=== PATIENT | female | born 1965 | race Caucasian/White ===

== ENCOUNTER 2017-03-02 18:12 | Emergency (ER) | payer OTHER ==
[2017-03-02] MEDS ORDERED: METOCLOPRAMIDE 5 MG/ML 2 ML VIAL IM ONE (18:58)
[2017-03-02] MEDS ORDERED: MORPHINE SULFATE 10 MG/ML SYRINGE IM STA (18:58)
--- NOTE | 2017-03-02 19:01 | ED ---
General Adult HPI - General Chief complaint: Headache Stated complaint: headache Time Seen by Provider: 03/02/17 18:54 Source: patient, family, RN notes reviewed Mode of arrival: ambulatory Limitations: no limitations - History of Present Illness Initial comments: Patient is a pleasant 51-year-old female presenting to the emergency department complaining of headache. Onset of symptoms was 2-3 days ago. Symptoms have gradually increased since onset. Discomfort is starting to become severe. Patient has tried sinus medicine, Tylenol, Motrin, and Mcleod without much improvement. Patient does not have a history of chronic headaches. Headache is mostly frontal bilaterally. No confusion. No street drugs. No weakness. Patient does have associated nausea and photophobia - Related Data Home Medications Medication Instructions Recorded Confirmed Insulin Aspart [NovoLOG Flexpen] 6 - 12 units SQ AC-TID 01/06/15 03/02/17 Levothyroxine Sodium [Synthroid] 150 mcg PO DAILY 01/06/15 03/02/17 Insulin Detemir [Levemir Flextouch] 38 unit SQ HS 03/02/17 03/02/17 Previous Rx's Medication Instructions Recorded Azithromycin [Zithromax Z-pack] 250 mg PO DIRECTED #6 tab 03/02/17 Hydrocodone/Acetaminophen [Mcleod 2 each PO Q6HR PRN #20 tab 03/02/17 5-325] Ondansetron Odt [Zofran Odt] 4 mg PO Q8HR PRN #10 tab 03/02/17 Allergies Allergy/AdvReac Type Severity Reaction Status Date / Time adhesive Allergy Rash/Hives Verified 03/02/17 18:17 Penicillins Allergy Rash/Hives Verified 03/02/17 18:17 SUN Allergy Rash/Hives Uncoded 03/02/17 18:17 Review of Systems ROS Statement: Those systems with pertinent positive or pertinent negative responses have been documented in the HPI. ROS Other: All systems not noted in ROS Statement are negative. Constitutional: Denies: fever Eyes: Denies: eye pain ENT: Denies: ear pain Respiratory: Denies: cough Cardiovascular: Denies: chest pain Endocrine: Denies: fatigue Gastrointestinal: Reports: nausea. Denies: abdominal pain Genitourinary: Denies: dysuria Musculoskeletal: Denies: back pain Skin: Denies: rash Neurological: Reports: headache. Denies: weakness, confusion Past Medical History Past Medical History: Diabetes Mellitus, Skin Disorder, Thyroid Disorder Additional Past Medical History / Comment(s): RT ARM RASH, R/T SUN SENSITIVITY, headaches History of Any Multi-Drug Resistant Organisms: None Reported Past Surgical History: Appendectomy, Bariatric Surgery, Section, Cholecystectomy, Hysterectomy Additional Past Surgical History / Comment(s): LAP BAND INSERTION, REMOVAL. 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 Past Psychological History: No Psychological Hx Reported Smoking Status: Former smoker Past Alcohol Use History: None Reported Past Drug Use History: None Reported - Past Family History Mother Family Medical History: No Reported History General Exam Limitations: no limitations General appearance: alert, in no apparent distress Head exam: Present: atraumatic, other (No tenderness to the temporal artery bilaterally) Eye exam: Present: normal appearance, PERRL, EOMI. Absent: nystagmus ENT exam: Present: normal oropharynx Neck exam: Present: normal inspection Respiratory exam: Present: normal lung sounds bilaterally Cardiovascular Exam: Present: regular rate, normal rhythm GI/Abdominal exam: Present: soft. Absent: tenderness Extremities exam: Present: normal inspection Neurological exam: Present: alert, oriented X3, CN II-XII intact. Absent: motor sensory deficit Expanded Speech: Present: fluid speech Cranial nerves: EOM's Intact: Normal, Facial Sensation: Normal Cerebellar function: Finger to Nose: Normal Sensory exam: Upper Extremity Light Touch: Normal, Lower Extremity Light Touch: Normal Motor strength exam: RUE: 5, LUE: 5, RLE: 5, LLE: 5 Eye Response: (4) open spontaneously Motor Response: (6) obeys commands Verbal Response: (5) oriented Psychiatric exam: Present: normal affect, normal mood Skin exam: Present: normal color Course Vital Signs 03/02/17 18:15 Temperature 97.4 F L Pulse Rate 80 Respiratory 20 Rate Blood Pressure 104/66 O2 Sat by Pulse 98 Oximetry Medical Decision Making - Medical Decision Making Patient reevaluated and resting comfortably in bed. Patient complains of continued nausea however states it may be because she has not been eating. Patient does not want further narcotics. Patient is receptive to Toradol and further nausea medicine and discharged. Patient will be started on antibiotics is advised to follow-up with ENT. - Radiology Data Radiology results: report reviewed (Computed tomography scan of brain shows severe left sphenoid sinus disease, otherwise no acute process) Disposition Clinical Impression: Headache, Sphenoid sinusitis Disposition: HOME SELF-CARE Condition: Stable Instructions: Acute Headache (ED) Additional Instructions: Please follow-up with your primary care physician as well as ENT in the beginning of the week. Return for increased pain, fevers, weakness, worsening symptoms or other concerns. Prescriptions: Azithromycin [Zithromax Z-pack] 250 mg PO DIRECTED #6 tab Hydrocodone/Acetaminophen [Mcleod 5-325] 2 each PO Q6HR PRN #20 tab PRN Reason: Pain Ondansetron Odt [Zofran Odt] 4 mg PO Q8HR PRN #10 tab PRN Reason: Nausea Referrals: Reji Parsons DO [Doctor of Osteopathic Medicine] - 1-2 days Ngoc Coreas MD [STAFF PHYSICIAN] - 1-2 days Time of Disposition: 20:30
--- NOTE | 2017-03-02 20:13 | CT ---
EXAMINATION TYPE: CT brain wo con DATE OF EXAM: 03/02/2017 COMPARISON: NONE HISTORY: 51-year-old female with headache TECHNIQUE: Examination was done in axial plane without intravenous contrast. Coronal and sagittal r econstructions performed. CT DLP: 1039.9 mGycm Automated exposure control for dose reduction was used. FINDINGS: There is no evidence of acute intracranial hemorrhage, acute ischemic changes, mass, mass-effect, or extra-axial fluid collection. There is no effacement of cerebral sulci or basal subarachnoid cister ns. There is no hydrocephalus. There is no midline shift. Nunez-white matter distinction is preserv ed. There is severe mucosal thickening and near complete opacification with some hyperdense material in t he left sphenoid sinus. Mastoid air cells well pneumatized. Orbits and globes are intact. IMPRESSION: 1. No acute intracranial abnormality seen. 2. Severe left sphenoid sinus disease. Internal hyperdensity is suspected to represent inspissated mu cus. Superimposed aspergillus infection considered less likely.
[2017-03-02] MEDS ORDERED: KETOROLAC 60 MG/2 ML VIAL IM STA (20:30)
[2017-03-02] MEDS ORDERED: ONDANSETRON 4 MG/2 ML VIAL IM STA (20:30)
[2017-03-02 20:59] VITALS: BP 128/78; PULSE 70; RESP 18; TEMP 97.8
== END 2017-03-02 20:59 | disposition home or self-care (01) ==
LOC: EC 18:12
DX: J32.3 Chronic sphenoidal sinusitis (principal); E11.9 Type 2 diabetes mellitus without complications; E07.9 Disorder of thyroid, unspecified; Z87.891 Personal history of nicotine dependence; Z88.0 Allergy status to penicillin; Z91.048 Other nonmedicinal substance allergy status; Z91.09 Other allergy status, other than to drugs and biological substances; Z53.20 Procedure and treatment not carried out because of patient's decision for unspecified reasons; Z79.4 Long term (current) use of insulin; Z79.899 Other long term (current) drug therapy
CPT/HCPCS: 70450; 99283; 96372 ×3; J2765; J2270; J1885

== ENCOUNTER 2017-06-29 07:16 | Emergency (ER) | payer OTHER ==
[2017-06-29] MEDS ORDERED: diphenhydrAMINE 50 MG/ML 1 ML VIAL IVP STA (07:49)
[2017-06-29] MEDS ORDERED: SODIUM CHLORIDE 0.9% 500 ML IV STA (07:49)
[2017-06-29] MEDS ORDERED: PANTOPRAZOLE 40 MG/10 ML VIAL IVP STA (07:49)
[2017-06-29] MEDS ORDERED: SODIUM CHLORIDE 0.9% 1,000 ML IV STA ×2 (07:49)
[2017-06-29] MEDS ORDERED: ONDANSETRON 4 MG/2 ML VIAL IVP STA (07:49)
--- NOTE | 2017-06-29 08:19 | ED ---
General Adult HPI - General Chief complaint: Nausea/Vomiting/Diarrhea Stated complaint: Vomiting Time Seen by Provider: 06/29/17 07:19 Source: patient, family, RN notes reviewed, old records reviewed Mode of arrival: wheelchair Limitations: no limitations - History of Present Illness Initial comments: This is a 52-year-old female to the ER for evaluation today. Patient complains of severe nausea and vomiting. Symptoms are left-sided into today. Patient has history of diabetes history of hypothyroidism. Patient states her blood sugars greater on 100. She felt fine yesterday during some family activities and events, didn't eat dinner without difficulty last night. Patient has 2 abdominal surgeries both appendix has been removed and gallbladder removed. Patient denies any recent fevers. She did have one episode of diarrhea, loose stool today. Patient is actively currently vomiting. She states she's had a couple episodes like this in the past when she gets the flu and usually this time a year. - Related Data Home Medications Medication Instructions Recorded Confirmed Insulin Aspart [NovoLOG Flexpen] 6 - 12 units SQ AC-TID 01/06/15 06/29/17 Levothyroxine Sodium [Synthroid] 150 mcg PO DAILY 01/06/15 06/29/17 Gabapentin [Neurontin] 300 mg PO HS 06/29/17 06/29/17 Insulin Glargine,Hum.rec.anlog 38 unit SQ HS 06/29/17 06/29/17 [Lantus Solostar] Allergies Allergy/AdvReac Type Severity Reaction Status Date / Time adhesive Allergy Rash/Hives Verified 06/29/17 08:12 influenza virus vaccine, Allergy Rash/Hives Verified 06/29/17 08:12 specific Penicillins Allergy Rash/Hives Verified 06/29/17 08:12 tetanus and diphtheria Allergy Rash/Hives Verified 06/29/17 08:12 toxoids SUN Allergy Rash/Hives Uncoded 03/02/17 18:17 Review of Systems ROS Statement: Those systems with pertinent positive or pertinent negative responses have been documented in the HPI. ROS Other: All systems not noted in ROS Statement are negative. Past Medical History Past Medical History: Diabetes Mellitus, Skin Disorder, Thyroid Disorder Additional Past Medical History / Comment(s): RT ARM RASH, R/T SUN SENSITIVITY, headaches History of Any Multi-Drug Resistant Organisms: None Reported Past Surgical History: Appendectomy, Bariatric Surgery, Section, Cholecystectomy, Hysterectomy Additional Past Surgical History / Comment(s): LAP BAND INSERTION, REMOVAL. 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 Past Psychological History: No Psychological Hx Reported Smoking Status: Former smoker Past Alcohol Use History: None Reported Past Drug Use History: None Reported - Past Family History Mother Family Medical History: No Reported History General Exam Limitations: no limitations General appearance: alert, in no apparent distress Head exam: Present: atraumatic, normocephalic, normal inspection Eye exam: Present: normal appearance, PERRL, EOMI. Absent: scleral icterus, conjunctival injection, periorbital swelling ENT exam: Present: normal exam, mucous membranes moist Neck exam: Present: normal inspection. Absent: tenderness, meningismus, lymphadenopathy Respiratory exam: Present: normal lung sounds bilaterally. Absent: respiratory distress, wheezes, rales, rhonchi, stridor Cardiovascular Exam: Present: regular rate, normal rhythm, normal heart sounds. Absent: systolic murmur, diastolic murmur, rubs, gallop, clicks GI/Abdominal exam: Present: soft, normal bowel sounds. Absent: distended, tenderness, guarding, rebound, rigid Extremities exam: Present: normal inspection, full ROM, normal capillary refill. Absent: tenderness, pedal edema, joint swelling, calf tenderness Back exam: Present: normal inspection Neurological exam: Present: alert, oriented X3, CN II-XII intact Psychiatric exam: Present: normal affect, normal mood Skin exam: Present: warm, dry, intact, normal color. Absent: rash Course Vital Signs 06/29/17 06/29/17 07:25 09:21 Temperature 99.4 F 98.6 F Pulse Rate 98 94 Respiratory 26 H 16 Rate Blood Pressure 123/53 120/59 O2 Sat by Pulse 98 98 Oximetry - Reevaluation(s) Reevaluation #1: 06/29/17 09:54 Patient feeling much better, symptoms resolved Medical Decision Making - Medical Decision Making 52 female to ER for evaluation. Patient is today for evaluation regarding nausea vomiting. Severe nausea vomiting and occasional abdominal pain. Patient 's symptoms are resolved, x-rays negative labwork is normal patient can be discharged home - Lab Data Result diagrams: 06/29/17 08:15 06/29/17 08:15 Lab Results 06/29/17 06/29/17 06/29/17 Range/Units 08:15 08:15 08:15 WBC 10.4 (3.8-10.6) k/uL RBC 5.00 (3.80-5.40) m/uL Hgb 14.6 (11.4-16.0) gm/dL Hct 44.8 (34.0-46.0) % MCV 89.7 (80.0-100.0) fL MCH 29.3 (25.0-35.0) pg MCHC 32.7 (31.0-37.0) g/dL RDW 13.8 (11.5-15.5) % Plt Count 309 (150-450) k/uL Neutrophils % 80 % Lymphocytes % 11 % Monocytes % 3 % Eosinophils % 4 % Basophils % 1 % Neutrophils # 8.3 H (1.3-7.7) k/uL Lymphocytes # 1.2 (1.0-4.8) k/uL Monocytes # 0.3 (0-1.0) k/uL Eosinophils # 0.4 (0-0.7) k/uL Basophils # 0.1 (0-0.2) k/uL Sodium 139 (137-145) mmol/L Potassium 4.0 (3.5-5.1) mmol/L Chloride 106 (98-107) mmol/L Carbon Dioxide 25 (22-30) mmol/L Anion Gap 8 mmol/L BUN 14 (7-17) mg/dL Creatinine 0.73 (0.52-1.04) mg/dL Est GFR (MDRD) Af Amer >60 (>60 ml/min/1.73 sqM) Est GFR (MDRD) Non-Af >60 (>60 ml/min/1.73 sqM) Glucose 84 (74-99) mg/dL Plasma Lactic Acid Sandeep (0.7-2.0) mmol/L Calcium 9.6 (8.4-10.2) mg/dL Total Bilirubin 0.4 (0.2-1.3) mg/dL AST 32 (14-36) U/L ALT 40 (9-52) U/L Alkaline Phosphatase 178 H (38-126) U/L Total Creatine Kinase 48 (30-135) U/L CK-MB (CK-2) 0.5 (0.0-2.4) ng/mL CK-MB (CK-2) Rel Index 1.0 Troponin I <0.012 (0.000-0.034) ng/mL Total Protein 7.6 (6.3-8.2) g/dL Albumin 4.0 (3.5-5.0) g/dL Amylase <30 L (30-110) U/L Lipase 40 (23-300) U/L Acetone, Qual Negative (Negative) Influenza Type A RNA (Not Detectd) Influenza Type B (PCR) (Not Detectd) 06/29/17 06/29/17 Range/Units 08:15 08:25 WBC (3.8-10.6) k/uL RBC (3.80-5.40) m/uL Hgb (11.4-16.0) gm/dL Hct (34.0-46.0) % MCV (80.0-100.0) fL MCH (25.0-35.0) pg MCHC (31.0-37.0) g/dL RDW (11.5-15.5) % Plt Count (150-450) k/uL Neutrophils % % Lymphocytes % % Monocytes % % Eosinophils % % Basophils % % Neutrophils # (1.3-7.7) k/uL Lymphocytes # (1.0-4.8) k/uL Monocytes # (0-1.0) k/uL Eosinophils # (0-0.7) k/uL Basophils # (0-0.2) k/uL Sodium (137-145) mmol/L Potassium (3.5-5.1) mmol/L Chloride (98-107) mmol/L Carbon Dioxide (22-30) mmol/L Anion Gap mmol/L BUN (7-17) mg/dL Creatinine (0.52-1.04) mg/dL Est GFR (MDRD) Af Amer (>60 ml/min/1.73 sqM) Est GFR (MDRD) Non-Af (>60 ml/min/1.73 sqM) Glucose (74-99) mg/dL Plasma Lactic Acid Sandeep 0.9 (0.7-2.0) mmol/L Calcium (8.4-10.2) mg/dL Total Bilirubin (0.2-1.3) mg/dL AST (14-36) U/L ALT (9-52) U/L Alkaline Phosphatase (38-126) U/L Total Creatine Kinase (30-135) U/L CK-MB (CK-2) (0.0-2.4) ng/mL CK-MB (CK-2) Rel Index Troponin I (0.000-0.034) ng/mL Total Protein (6.3-8.2) g/dL Albumin (3.5-5.0) g/dL Amylase (30-110) U/L Lipase (23-300) U/L Acetone, Qual (Negative) Influenza Type A RNA Not Detected (Not Detectd) Influenza Type B (PCR) Not Detected (Not Detectd) Disposition Clinical Impression: Dehydration, Food poisoning, Gastroenteritis Disposition: HOME SELF-CARE Condition: Good Instructions: Acute Nausea and Vomiting (ED) Referrals: Nonstaff,Physician [REFERRING] - 1-2 days
[2017-06-29 08:33] LABS: Basophils # (A) 0.1 k/uL (0-0.2); Basophils % (A) 1 %; CH 29.8; CHCM 33.3; Eosinophils # (A) 0.4 k/uL (0-0.7); Eosinophils % (A) 4 %; HCT 44.8 % (34.0-46.0); HDW 2.22; HGB 14.6 gm/dL (11.4-16.0); Luc # (Auto) 0.12; Luc % (Auto) 1; Lymphocytes # (A) 1.2 k/uL (1.0-4.8); Lymphocytes % (A) 11 %; MCH 29.3 pg (25.0-35.0); MCHC 32.7 g/dL (31.0-37.0); MCV 89.7 fL (80.0-100.0); Mean Platelet Volume 7.8; Monocytes # (A) 0.3 k/uL (0-1.0); Monocytes % (A) 3 %; Neutrophils # (A) 8.3 k/uL (1.3-7.7); Neutrophils % (A) 80 %; RDW 13.8 % (11.5-15.5); WBC 10.4 k/uL (3.8-10.6); WBC (Perox) 10.51
[2017-06-29 08:44] LABS: ALT 40 U/L (9-52); AST 32 U/L (14-36); Alkaline Phosphatase 178 U/L (38-126); Amylase <30 U/L (30-110); Anion Gap 8 mmol/L; Blood Urea Nitrogen 14 mg/dL (7-17); Calcium 9.6 mg/dL (8.4-10.2); Carbon Dioxide 25 mmol/L (22-30); Chloride 106 mmol/L (98-107); Glucose 84 mg/dL (74-99); Non-African American GFR(MDRD) >60 (>60 ml/min/1.73 sqM); Sodium 139 mmol/L (137-145); Total Bilirubin 0.4 mg/dL (0.2-1.3); Total Protein 7.6 g/dL (6.3-8.2)
[2017-06-29 09:20] LABS: Creatine Kinase 48 U/L (30-135)
[2017-06-29 09:22] VITALS: BP 120/59; PULSE 94; RESP 16; TEMP 98.6
[2017-06-29 09:31] LABS: Creatine Kinase MB 0.5 ng/mL (0.0-2.4); Troponin I <0.012 ng/mL (0.000-0.034)
--- NOTE | 2017-06-29 09:50 | XR ---
EXAMINATION TYPE: XR abdomen acute w AP chest DATE OF EXAM: 06/29/2017 COMPARISON: NONE HISTORY: 52-year-old female syncopal episode last night, pain TECHNIQUE: 4 views FINDINGS: Frontal view of the chest shows normal heart size, aorta, and pulmonary vasculature. No consolidation or pleural effusion. ACDF hardware. No evidence for free air. No dilated small bowel or differential air-fluid levels. No significant stool burden. Scattered colon ic gas is present. No suspicious calcification seen. IMPRESSION: 1. No acute cardiopulmonary process. 2. No evidence for free air or bowel obstruction.
== END 2017-06-29 10:05 | disposition home or self-care (01) ==
LOC: EC 07:16
DX: K52.9 Noninfective gastroenteritis and colitis, unspecified (principal); T62.91XA Toxic effect of unspecified noxious substance eaten as food, accidental (unintentional), initial encounter; E11.9 Type 2 diabetes mellitus without complications; E03.9 Hypothyroidism, unspecified; Z87.891 Personal history of nicotine dependence; Z90.49 Acquired absence of other specified parts of digestive tract; Z98.84 Bariatric surgery status; Z90.710 Acquired absence of both cervix and uterus; Z79.4 Long term (current) use of insulin; Z79.899 Other long term (current) drug therapy; Z91.048 Other nonmedicinal substance allergy status; Z88.7 Allergy status to serum and vaccine; Z88.0 Allergy status to penicillin
CPT/HCPCS: 36415; 80053; 82150; 82550; 82553; 82009; 83605; 83690; 84484; 85025; 87502; 74022; 99284; 96374; 96375 ×2; 96361 ×2; J1200; J2405; C9113

== ENCOUNTER 2018-04-27 19:11 | Emergency (ER) | payer OTHER ==
[2018-04-27] MEDS ORDERED: HYDROcodone/APAP 7.5-325MG 1 EACH TAB PO ONE ×2 (20:25→20:36)
--- NOTE | 2018-04-27 20:35 | ED ---
Fall HPI - General Source: patient Mode of arrival: ambulatory <Negin Pringle - Last Filed: 04/28/18 04:34> <Debbie Martin - Last Filed: 04/28/18 04:42> - General Chief Complaint: Fall Stated Complaint: Fall-Tailbone Pain Time Seen by Provider: 04/27/18 20:03 - History of Present Illness Initial Comments: 60-year-old female patient presents to the emergency department today for complaints of low back pain after experiencing a fall today. Patient states on 4 PM she was pulling or 2-year-old grandchild when she fell backwards landing on her buttocks. Patient states that she is having severe pain in her "tailbone ". Patient states he has a significant increase in pain whenever she changes positions or sits on the area. Patient states that initially the pain was so bad she vomited 2-3 times. Patient states that she has been very shaky since the incident. She denies any hematuria. Denies any rectal bleeding. She denies any radiation of the pain down her legs. Denies any numbness or tingling to her lower extremities. States she is able to ambulate without difficulty. She denies any loss of bowel or bladder control, or saddle anesthesia. She denies hitting her head or losing consciousness. She denies any other injuries. Patient denies any headache, neck pain, chest pain, shortness of breath, dizziness, weakness, abdominal pain, nausea, vomiting, or difficulties with bowel movements or urination. (Negin Pringle) - Related Data Home Medications Medication Instructions Recorded Confirmed Insulin Aspart [NovoLOG Flexpen] 6 - 12 units SQ AC-TID 01/06/15 04/27/18 Levothyroxine Sodium [Synthroid] 150 mcg PO DAILY 01/06/15 04/27/18 Gabapentin [Neurontin] 300 mg PO HS 06/29/17 04/27/18 Insulin Glargine,Hum.rec.anlog 38 unit SQ HS 06/29/17 04/27/18 [Lantus Solostar] Previous Rx's Medication Instructions Recorded Ibuprofen [Motrin] 600 mg PO Q8HR PRN #30 tab 04/27/18 Allergies Allergy/AdvReac Type Severity Reaction Status Date / Time adhesive Allergy Rash/Hives Verified 09/24/18 20:41 influenza virus vaccine, Allergy Rash/Hives Verified 04/27/18 20:41 specific Penicillins Allergy Rash/Hives Verified 04/27/18 20:41 tetanus and diphtheria Allergy Rash/Hives Verified 04/27/18 20:41 toxoids SUN Allergy Rash/Hives Uncoded 04/27/18 19:56 Review of Systems ROS Other: All systems not noted in ROS Statement are negative. <Negin Pringle M - Last Filed: 04/28/18 04:34> ROS Other: All systems not noted in ROS Statement are negative. <Debbie Martin - Last Filed: 04/28/18 04:42> ROS Statement: Those systems with pertinent positive or pertinent negative responses have been documented in the HPI. Past Medical History Past Medical History: Diabetes Mellitus, Skin Disorder, Thyroid Disorder Additional Past Medical History / Comment(s): RT ARM RASH, R/T SUN SENSITIVITY, headaches History of Any Multi-Drug Resistant Organisms: None Reported Past Surgical History: Appendectomy, Bariatric Surgery, Section, Cholecystectomy, Hysterectomy Additional Past Surgical History / Comment(s): LAP BAND INSERTION, REMOVAL. 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 Past Psychological History: No Psychological Hx Reported Smoking Status: Former smoker Past Alcohol Use History: None Reported Past Drug Use History: None Reported - Past Family History Mother Family Medical History: No Reported History <Negin Pringle M - Last Filed: 04/28/18 04:34> General Exam Limitations: no limitations General appearance: alert, in no apparent distress, other (This is a well- developed, well-nourished adult female patient in no acute distress. Vital signs upon presentation are temperature 98.4F, pulse 94, respirations 20, blood pressure 123/78, pulse ox 98% on room air.) Eye exam: Present: normal appearance, PERRL, EOMI. Absent: scleral icterus, conjunctival injection, periorbital swelling ENT exam: Present: normal exam, normal oropharynx, mucous membranes moist Neck exam: Present: normal inspection, full ROM. Absent: tenderness, meningismus, lymphadenopathy Respiratory exam: Present: normal lung sounds bilaterally. Absent: respiratory distress, wheezes, rales, rhonchi, stridor Cardiovascular Exam: Present: regular rate, normal rhythm, normal heart sounds. Absent: systolic murmur, diastolic murmur, rubs, gallop, clicks GI/Abdominal exam: Present: soft, normal bowel sounds. Absent: distended, tenderness, guarding, rebound, rigid Back exam: Present: normal inspection, vertebral tenderness (Midline sacral tenderness) Neurological exam: Present: alert, oriented X3, CN II-XII intact, other (Lower extremity strength is 5/5.) Psychiatric exam: Present: normal affect, normal mood Skin exam: Present: warm, dry, intact, normal color. Absent: rash <Negin Pringle - Last Filed: 04/28/18 04:34> Vital Signs 04/27/18 04/27/18 19:54 21:35 Temperature 98.4 F 98.3 F Pulse Rate 94 81 Respiratory 20 18 Rate Blood Pressure 123/78 140/60 O2 Sat by Pulse 98 98 Oximetry Medical Decision Making - Radiology Data Radiology results: report reviewed, image reviewed <Negin Pringle - Last Filed: 04/28/18 04:34> <Debbie Martin - Last Filed: 04/28/18 04:42> - Medical Decision Making 52-year-old female patient presents to the emergency department today for evaluation of pain to her "tailbone" after expressing a fall today. Physical examination did reveal sacral tenderness. Patient had no radicular pain to the lower extremities. Had no numbness or tingling. She is neurologically intact. CT of the pelvis and sacrum were obtained and showed no acute osseous abnormalities. Did discuss her symptoms are consistent with contusion. She is instructed to apply ice to the area at least 4 times daily for 20 minutes. She is instructed to take Tylenol Motrin for pain control. She is instructed to follow-up with her primary care physician for recheck in 1-2 days. Return parameters discussed in detail. She verbalizes understanding and agrees with this plan. (Negin Pringle) I was available for consultation in the emergency department. The history and physical exam were done by the midlevel provider. I was consulted for this patient's care. I reviewed the case with the midlevel provider and based on their presentation of the patient, I agree with the assessment, medical decision making and plan of care as documented. (Debbie Martin) - Radiology Data CT of the sacrum without contrast was performed. Report was reviewed in its entirety. Impression by Dr. Ruiz shows negative computed tomography scan of the sacrum and coccyx. No fracture seen. CT of the pelvis without contrast was performed. Report was reviewed in its entirety. Impression by Dr. Ruzi shows negative computed tomography scan of the pelvis. No fracture seen. There are a few inguinal lymph nodes of uncertain significance. (Negin Pringle) Disposition Is patient prescribed a controlled substance at d/c from ED?: No Time of Disposition: 21:30 <Negin Pringle - Last Filed: 04/28/18 04:34> <Debbie Martin - Last Filed: 04/28/18 04:42> Clinical Impression: Sacral contusion Disposition: HOME SELF-CARE Condition: Good Instructions: Acute Low Back Pain (ED), Contusion in Adults (ED) Additional Instructions: Continue to apply ice to the sacral area 20 minutes at a time at least 4 times per day. Take medications as directed. Follow-up with your primary care physician for recheck in 1-2 days. Return here immediately for any new, worsening, or concerning symptoms. Prescriptions: Ibuprofen [Motrin] 600 mg PO Q8HR PRN #30 tab PRN Reason: Pain Referrals: None,Stated [Primary Care Provider] - 1-2 days
[2018-04-27] MEDS ORDERED: MORPHINE SULFATE 4 MG/ML SYRINGE IM STA (20:36)
[2018-04-27] MEDS ORDERED: ONDANSETRON ODT 4 MG TAB PO STA (21:09)
--- NOTE | 2018-04-27 21:24 | CT ---
EXAMINATION TYPE: CT pelvis wo con DATE OF EXAM: 04/27/2018 COMPARISON: None HISTORY: PAIN TO TAILBONE AFTER FALL INJURY CT DLP: 920.3 mGycm Automated exposure control for dose reduction was used. FINDINGS: The pelvic ring is intact. Sacrum and coccyx have normal alignment of the segments. There is no evide nce of a pelvic mass. Bladder distends smoothly. There is no free fluid in the pelvis. There is no ev idence of pelvic lymphadenopathy. There is apparent surgical clip in the pelvis on the left side. Hip joint spaces are fairly normal. The proximal femurs are intact. Soft tissues around the pelvis are u nremarkable. There are a few inguinal lymph nodes that measure up to 2 cm. IMPRESSION: NEGATIVE CT SCAN OF THE PELVIS. NO FRACTURE SEEN. There are a few inguinal lymph nodes of uncertain s ignificance.
--- NOTE | 2018-04-27 21:26 | CT ---
EXAMINATION TYPE: CT sacrum wo con DATE OF EXAM: 04/27/2018 COMPARISON: None HISTORY: PAIN TO TAILBONE AFTER FALL INJURY CT DLP: 920.3 mGycm Automated exposure control for dose reduction was used. FINDINGS: The segments have normal alignment. Prevertebral soft tissues appear normal. There is no evidence of a sacral or coccygeal fracture. Sacroiliac joints appear normal. There is no evidence of sacral bone destruction. IMPRESSION: NEGATIVE CT SCAN OF THE SACRUM AND COCCYX. NO FRACTURE SEEN.
[2018-04-27] MEDS ORDERED: ACET/COD 300 MG/30 MG STARTER PACK 6 TAB BTL PO STA (21:30)
[2018-04-27 21:43] VITALS: BP 140/60; PULSE 81; RESP 18; TEMP 98.3
== END 2018-04-27 21:39 | disposition home or self-care (01) ==
LOC: EC 19:11
DX: S30.0XXA Contusion of lower back and pelvis, initial encounter (principal); E11.9 Type 2 diabetes mellitus without complications; E07.9 Disorder of thyroid, unspecified; Z90.49 Acquired absence of other specified parts of digestive tract; Z90.710 Acquired absence of both cervix and uterus; Z98.84 Bariatric surgery status; Z87.891 Personal history of nicotine dependence; Z79.4 Long term (current) use of insulin; Z79.899 Other long term (current) drug therapy; Z88.0 Allergy status to penicillin; Z88.7 Allergy status to serum and vaccine; Z91.048 Other nonmedicinal substance allergy status
CPT/HCPCS: 96372 ×2; 99284 ×2; 72192; J2270

== ENCOUNTER → 2018-12-10 | Outpatient (CLI) | payer OTHER ==
--- NOTE | 2018-12-10 11:50 | P.HPBAR ---
Bariatric H&P - History & Physicial H&P Date: 12/10/18 History & Physicial: Visit/CC: Patient initial contact: Initial weight: Initial weight in pounds: Height: Initial BMI: Last weight: Current weight: Current weight in pounds: Current BMI: [place] body weight (based on NIH guidelines): Excess body weight loss: The patient is a 53 year-old F who presents for Bariatric Assessment. HPI: She is looking the the gastric bypass. She has tried lap band in the past. Her band is removed. Her highest weight is at present. Most weight loss of 115 pounds with the lap band but it prolapsed 2005. She has diabetes insulin dependent and reports abdominal pain including. She has numbness of her feet. Blood sugars in the morning is 70 to 90s. Hemoglobin A1C. She is seeing an hand wrapper operator every 3 months in [place]. She has diabetic nephropathy. Gallbladder is gone. No uterus and appendix. She has GERD. She had an EGD with ulcers found. She reports lower abdominal pain. Chronic diarrhea and is due for screening. ABOMEN: Flank she has pain along the sides ASSESSMENT: 1. Morbid obesity PLAN: 1. Recommend [facility] 2. Needs EGD 3. Restrictions of weight loss journey described. 4. Colonoscopy Past Medical History Past Medical History: Diabetes Mellitus, Neurologic Disorder, Skin Disorder, Thyroid Disorder Additional Past Medical History / Comment(s): hypothyroidism, Type 2 DM, RT ARM RASH, R/T SUN SENSITIVITY, headaches, chronic dirrhea, colonoscopy with polypectomy, neuropathy bilateral feet History of Any Multi-Drug Resistant Organisms: None Reported Past Surgical History: Appendectomy, Bariatric Surgery, Section, Cholecystectomy, Hysterectomy Additional Past Surgical History / Comment(s): LAP BAND INSERTION 2005 (REMOVed 2011 d/t prolapse)., Cervical Cage surgery C3-5 at [facility] 2014, Past Anesthesia/Blood Transfusion Reactions: No Reported Reaction Additional Past Anesthesia/Blood Transfusion Reaction / Comm: OVERDOSED ON MORPHINE 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 Past Psychological History: No Psychological Hx Reported Smoking Status: Current every day smoker Past Alcohol Use History: None Reported Past Drug Use History: None Reported - Past Family History Mother Family Medical History: No Reported History Bariatric Checklist Checklist: Plan: Checklist: EGD: 1. Hiatal hernia: 2. H. Pylori: HgbA1c: Vitamin D: Smoking: Current every day smoker Primary care physician referral: Psychiatry clearance: Cardiology clearance: Sleep study: Diet journal: VTE risk score: VTE risk level: Rehab needs at discharge:
[2018-12-10 12:07] VITALS: BP 132/69; PULSE 71; TEMP 98.2; BMI 46.4
[2018-12-10 13:05] LABS: HCT 44.6 % (34.0-46.0); MCH 28.7 pg (25.0-35.0); MCHC 31.3 g/dL (31.0-37.0); MCV 91.5 fL (80.0-100.0); Mean Platelet Volume 7.4; Platelet Count 334 k/uL (150-450); RBC 4.88 m/uL (3.80-5.40); RDW 13.3 % (11.5-15.5); WBC 7.3 k/uL (3.8-10.6)
[2018-12-10 13:28] LABS: INR 0.9 (<1.2); Partial Thromboplastin Time 25.5 sec (22.0-30.0)
[2018-12-10 18:44] LABS: Iron Saturation 34.92 (12.00-45.00)
[2018-12-10 19:05] LABS: Albumin 3.9 g/dL (3.80-4.90); Albumin/Globulin Ratio 1.56 (1.60-3.17); Calcium 8.9 mg/dL (8.7-10.3); Folate, Serum 11.1 ng/mL; Globulin 2.5 g/dL (1.6-3.3); Magnesium 1.6 mg/dL (1.5-2.4); Phosphorus 3.1 mg/dL (2.4-5.1); Potassium 5.5 mmol/L (3.5-5.5); Total Bilirubin 0.4 mg/dL (0.3-1.2); Total Protein 6.4 g/dL (6.2-8.2); Vitamin D 25 Hydroxy 14.8 ng/mL (30.0-100.0)
[2018-12-10 22:11] LABS: Hemoglobin A1C 9.5 % (4.0-6.0)
[2018-12-11 12:14] LABS: Zinc, Serum 61 ug/dL (60-130)
== END | disposition home or self-care (01) ==
LOC: BARWHC3 10:47
PROVIDERS: ATTEND Surgery Plastic and Reconstructive Surgery
DX: E66.01 Morbid (severe) obesity due to excess calories (principal); E11.21 Type 2 diabetes mellitus with diabetic nephropathy; E21.1 Secondary hyperparathyroidism, not elsewhere classified; E89.1 Postprocedural hypoinsulinemia; D50.9 Iron deficiency anemia, unspecified; K90.9 Intestinal malabsorption, unspecified; E55.9 Vitamin D deficiency, unspecified; K76.9 Liver disease, unspecified; N19 Unspecified kidney failure; K50.90 Crohn's disease, unspecified, without complications; F17.200 Nicotine dependence, unspecified, uncomplicated; Z98.84 Bariatric surgery status; Z90.49 Acquired absence of other specified parts of digestive tract
CPT/HCPCS: 84255; 84134; 84425; 80061; 80053; 82607; 82728; 82525; 82746; 83540; 83550; 83735; 84100; 84443; 84590; 84630; 85027; 85610; 85730; 82306; 83970; 83036; 93005; G0463; 99211

== ENCOUNTER 2019-02-15 11:45 | Day surgery (SDC) | payer OTHER ==
[2019-02-12 10:02] VITALS: BMI 43.8
--- NOTE | 2019-02-14 13:22 | P.GSHP ---
History of Present Illness H&P Date: 02/15/19 CHIEF COMPLAINT: GERD and colon screen HISTORY OF PRESENT ILLNESS: The patient is a 53-year-old female who presents with gastroesophageal reflux disease and need for colon screen. Upper and lower endoscopy were offered for further evaluation and management. PAST MEDICAL HISTORY: Please see list. PAST SURGICAL HISTORY: Please see list. MEDICATIONS: Please see list. ALLERGIES: Please see list. SOCIAL HISTORY: No illicit drug use FAMILY HISTORY: No reports of Crohn disease or ulcerative colitis. REVIEW OF ORGAN SYSTEMS: CONSTITUTIONAL: No reports of fevers or chills. GI: Denies any blood in stools or constipation. PHYSICAL EXAM: VITAL SIGNS: Stable GENERAL: Well-developed pleasant in no acute distress. HEENT: No scleral icterus. Extraocular movements grossly intact. Moist buccal mucosa. NECK: Supple without lymphadenopathy. CHEST: Unlabored respirations. Equal bilateral excursions. CARDIOVASCULAR: Regular rate and rhythm. Distal 2+ pulses. ABDOMEN: Soft, nondistended. MUSCULOSKELETAL: No clubbing, cyanosis, or edema. ASSESSMENT: 1. Gastroesophageal reflux disease 2. Colon screen. PLAN: 1. Recommend proceeding with an upper and lower endoscopy Past Medical History Past Medical History: Diabetes Mellitus, GERD/Reflux, Skin Disorder, Thyroid Disorder Additional Past Medical History / Comment(s): chronic dirrhea, varicose veins, neuropathy bilateral feet, hx ulcers, sun rash on melissa lower arms, History of Any Multi-Drug Resistant Organisms: None Reported Past Surgical History: Appendectomy, Bariatric Surgery, Section, Cholecystectomy, Hysterectomy, Orthopedic Surgery Additional Past Surgical History / Comment(s): LAP BAND /later removed., Cervical Cage surgery C 3-5 Past Anesthesia/Blood Transfusion Reactions: Previous Problems w/ Anesthesia Additional Past Anesthesia/Blood Transfusion Reaction / Comment(s): OVERDOSED ON MORPHINE REGISTERED NURSE TEACHER AFTER HYSTERECTOMY SURGERY, LED TO CARDIAC ARREST. Smoking Status: Current every day smoker - Past Family History Mother Family Medical History: No Reported History Medications and Allergies Home Medications Medication Instructions Recorded Confirmed Type Gabapentin [Neurontin] 300 mg PO HS 06/29/17 02/12/19 History Ascorbic Acid [Vitamin C] 500 mg PO DAILY 02/12/19 02/12/19 History Insulin Glargine,Hum.rec.anlog 30 unit SQ HS 02/12/19 02/12/19 History [[place]ag[place]uz maria E[place] U-100] Insulin Lispro [Admelog] 6 - 12 unit SQ AC-TID PRN 02/12/19 02/12/19 History Levothyroxine Sodium [Synthroid] 175 mcg PO DAILY 02/12/19 02/12/19 History Allergies Allergy/AdvReac Type Severity Reaction Status Date / Time adhesive Allergy Rash/Hives Verified 02/12/19 09:51 adhesive tape Allergy Rash/Hives Verified 02/12/19 10:06 influenza virus vaccine, Allergy Rash/Hives Verified 02/12/19 09:51 specific Penicillins Allergy Rash/Hives Verified 02/12/19 09:51 tetanus and diphtheria Allergy Rash/Hives Verified 02/12/19 09:51 toxoids SUN Allergy Unknown Rash/Hives Uncoded 02/12/19 09:51
[~2019-02-15 11:45] MED LIST: LACTATED RINGERS 1,000 ML IV SCH; LIDOCAINE 1% 20 ML VIAL (10MG/ML) FOR IV START INTRADERMA PRN
[2019-02-15 12:23] VITALS: RESP 16; TEMP 97.8
[2019-02-15 12:31] LABS: Glucose,Whole Blood 284 mg/dL (75-99)
[2019-02-15] MEDS ORDERED: LIDOCAINE 1% INJ 10MG/ML (20 ML MDV) ONE (12:33)
[2019-02-15] MEDS ORDERED: PROPOFOL 10 MG/ML 20 ML VIAL IV ONE (12:33)
--- NOTE | 2019-02-15 12:49 | P.PCN ---
Date of Procedure: 02/15/19 Description of Procedure: PREOPERATIVE DIAGNOSIS: Gastroesophageal reflux disease. Morbid obesity. POSTOPERATIVE DIAGNOSIS: Morbid obesity. Gastritis. Gastroesophageal reflux disease. Diaphragmatic hiatal hernia OPERATION: Esophagogastroduodenoscopy with biopsies along antrum. SURGEON: Mireille Spence MD ANESTHESIA: MAC. INDICATIONS: The patient is a 53-year-old female who presents with a history of reflux disease. Benefits and risks of the procedure were described. Informed consent was obtained. DESCRIPTION: The patient was brought into the endoscopy suite and laid in the left lateral decubitus position. An Olympus gastroscope was passed along the posterior oropharynx down to the distal esophagus where the squamocolumnar junction was encountered at 35 cm from the incisors. The stomach was entered and no bile reflux was found. Additional findings are listed below. Biopsies with cold fo rceps were obtained of the antrum. The first through third portion of the duodenum was examined and unremarkable. Retroflexion of the scope confirmed Hill grade 3 lower esophageal valve. The squamocolumnar junction demonstrated LA grade B erosive esophagitis. The stomach was desufflated. The patient tolerated the procedure well. FINDINGS: Squamocolumnar junction 35 cm from the incisors. Diaphragmatic hiatus at 36 cm. Hiatal hernia, 1 cm, sliding type Hill grade 3 lower esophageal valve. LA grade B erosive esophagitis. No active duodenitis. Chronic gastritis RECOMMENDATIONS: Upper endoscopy as needed. Plan - Discharge Summary Discharge Rx Participant: No New Discharge Prescriptions: No Action Gabapentin [Neurontin] 300 mg PO HS Insulin Glargine,Hum.rec.anlog [Basaglar Kwikpen U-100] 30 unit SQ HS Ascorbic Acid [Vitamin C] 500 mg PO DAILY Insulin Lispro [Admelog] 6 - 12 unit SQ AC-TID PRN PRN Reason: Blood Sugar - High Levothyroxine Sodium [Synthroid] 175 mcg PO DAILY Discharge Medication List Gabapentin [Neurontin] 300 mg PO HS 06/29/17 [History] Ascorbic Acid [Vitamin C] 500 mg PO DAILY 02/12/19 [History] Insulin Glargine,Hum.rec.anlog [Basaglar Kwikpen U-100] 30 unit SQ HS 02/12/19 [History] Insulin Lispro [Admelog] 6 - 12 unit SQ AC-TID PRN 02/12/19 [History] Levothyroxine Sodium [Synthroid] 175 mcg PO DAILY 02/12/19 [History] Follow up Appointment(s)/Referral(s): [facility],. [NON-STAFF] - 03/03/19 3:20 pm Patient Instructions/Handouts: *Surgery [facility] - (Anesthesia) Endoscopy Discharge Instructions, Hiatal Hernia (DC), Gastroesophageal Reflux Disease (DC) Discharge Disposition: HOME SELF-CARE
[2019-02-15 12:59] LABS: Glucose,Whole Blood 280 mg/dL (75-99)
[2019-02-15 13:15] VITALS: BP 114/74; PULSE 68
== END 2019-02-15 13:26 | disposition home or self-care (01) ==
LOC: ORWHC2ENDO 11:45
PROVIDERS: ATTEND Surgery Plastic and Reconstructive Surgery
DX: K21.0 Gastro-esophageal reflux disease with esophagitis (principal); K29.50 Unspecified chronic gastritis without bleeding; K44.9 Diaphragmatic hernia without obstruction or gangrene; E66.01 Morbid (severe) obesity due to excess calories; Z68.41 Body mass index [BMI] 40.0-44.9, adult; E11.40 Type 2 diabetes mellitus with diabetic neuropathy, unspecified; Z90.49 Acquired absence of other specified parts of digestive tract; F17.200 Nicotine dependence, unspecified, uncomplicated; Z79.890 Hormone replacement therapy; Z79.4 Long term (current) use of insulin; Z79.899 Other long term (current) drug therapy; Z88.0 Allergy status to penicillin; Z88.7 Allergy status to serum and vaccine; Z88.8 Allergy status to other drugs, medicaments and biological substances
CPT/HCPCS: 88305; 43239; J2001; J2704

== ENCOUNTER → 2019-03-03 | Outpatient (CLI) | payer OTHER ==
--- NOTE | 2019-03-03 16:52 | P.PN ---
Subjective Progress Note Date: 03/03/19 DATE OF SERVICE: 03/03/2019 CHIEF COMPLAINT: Bariatric evaluation HISTORY OF PRESENT ILLNESS: Cydney Gray is a 53-year-old female who comes in looking into the the gastric bypass after having the adjustable gastric lap band in the past. As a result of her morbid obesity, she has developed diabetes type 2 with complicaitons. She has severe gastroesophageal reflux disease including history of gastric ulcers. She comes in today after completing an upper endoscopy over 2 weeks ago. She also comes in with chronic diarrhea. At height of 5 feet 5.25 inches, her ideal body weight is 149 pounds. She comes in 272 pounds from 280 pounds, 2 months ago. She has lost 8 pounds in 2 months. Her body mass index is down from 46.4 to 45.1. She is 123 pounds overweight. PAST MEDICAL HISTORY: 1. Morbid obesity due to excess calories 2. Body mass index of 46.4 3. Osteoarthritis of the knees. 4. Osteoarthritis of the lower back. 5. Hypothyroidism. 6. Gastroesophageal reflux disease 7. Diabetes type 2 insulin-dependent 8. Diabetic neuropathy 9. Gastric ulcers 10. Colon polyps PAST SURGICAL HISTORY: 1. Appendectomy 2. Hysterectomy 3. Cholecystectomy 4. Adjustable gastric band status post removal 5. Colonoscopy 6. Upper endoscopy 7. section HOME MEDICATIONS: Home Medications Medication Instructions Recorded Confirmed Gabapentin [Neurontin] 300 mg PO HS 06/29/17 02/12/19 Ascorbic Acid [Vitamin C] 500 mg PO DAILY 02/12/19 02/12/19 Insulin Glargine,Hum.rec.anlog 30 unit SQ HS 02/12/19 02/12/19 [Basaglar Emeliaikpen U-100] Insulin Lispro [Admelog] 6 - 12 unit SQ AC-TID PRN 02/12/19 02/12/19 Levothyroxine Sodium [Synthroid] 175 mcg PO DAILY 02/12/19 02/12/19 ALLERGIES: Allergies Allergy/AdvReac Type Severity Reaction Status Date / Time adhesive Allergy Rash/Hives Verified 02/12/19 09:51 adhesive tape Allergy Rash/Hives Verified 02/12/19 10:06 influenza virus vaccine, Allergy Rash/Hives Verified 02/12/19 09:51 specific Penicillins Allergy Rash/Hives Verified 02/12/19 09:51 tetanus and diphtheria Allergy Rash/Hives Verified 02/12/19 09:51 toxoids SUN Allergy Unknown Rash/Hives Uncoded 02/12/19 09:51 SOCIAL HISTORY: Tobacco use. FAMILY HISTORY: No family history of ulcerative colitis disease or Crohn's disease. No lupus in the family. No reports of stomach or esophageal cancer. REVIEW OF ORGAN SYSTEMS: CONSTITUTIONAL: At height of 5 feet 5.25 inches, her ideal body weight is 149 pounds. She comes in 280 pounds. Her body mass index is 46.4. She is 131 pounds overweight. HEENT: Denies any active troubles with vision or hearing. Has troubles with swallowing. ENDOCRINE: Has diabetes. Has hypothyroidism. CARDIOVASCULAR: Past reports of palpitations or heart attacks or chest pain. RESPIRATORY: Has daytime somnolence. No asthma. GASTROINTESTINAL: Denies any bright red blood per rectum. Has diarrhea. No constipation. MUSCULOSKELETAL: Has lower back pain and joint pain. Has osteoarthritis of the knees. NEURO: No headaches. No seizure disorders. PSYCH: No depression. No suicidal ideation. RHEUMATOLOGIC: No lupus. No rheumatoid arthritis. HEMATOLOGIC: Denies any abnormal bleeding or bruising. No personal history of DVTs. SKIN: No rash. No skin cancer. PHYSICAL EXAM: VITAL SIGNS: Height 5 foot 5.25 inches, weight 280 pounds. BMI 46.4 Vital Signs Temp 98.8 F 03/03/19 15:50 Pulse 71 03/03/19 15:50 Resp 16 03/03/19 15:50 BP 129/61 03/03/19 15:50 Pulse Ox GENERAL: Well-developed in no acute distress. HEENT: No scleral icterus. Extraocular movements grossly intact. Hears conversational speech. No nasal drainage. NECK: Supple without lymphadenopathy. CHEST: Nonlabored respirations with equal bilateral excursions. CARDIOVASCULAR: Regular rate and regular rhythm. Distal 2+ pulses. ABDOMEN: Obese, soft, nontender, nondistended. MUSCULOSKELETAL: No clubbing, cyanosis. Gross strength 5/5 distal lower extremities. NEURO: No focal or lateralizing signs. Cranial nerves 2 through 12 grossly within normal limits. PSYCH: Appropriate affect. Alert and oriented to person, place and time. SKIN: Good skin turgor. Well perfused. EGD FINDINGS: Squamocolumnar junction 35 cm from the incisors. Diaphragmatic hiatus at 36 cm. Hiatal hernia, 1 cm, sliding type Hill grade 3 lower esophageal valve. LA grade B erosive esophagitis. No active duodenitis. Chronic gastritis Final Pathologic Diagnosis GASTRIC ANTRUM, BIOPSY: Chronic gastritis. Helicobacter pylori organisms are not identified on routine H+E sections. LABS: Hgb A1C elevated at 9.5%. Alkaline phosphatase elevated. Vitamin A is low. Vitamin D is low. EKG is normal ASSESSMENT: 1. Morbid obesity due to excess calories 2. Body mass index of 46.4 to 45.1 3. Osteoarthritis of the knees. 4. Osteoarthritis of the lower back. 5. Hypothyroidism. 6. Gastroesophageal reflux disease 7. Diabetes type 2 insulin-dependent 8. Diabetic neuropathy 9. Gastric ulcers 10. Chronic diarrhea 11. Hiatal hernia 12. Vitamin A deficiency 13. Vitamin D deficiency PLAN: 1. Recommend colonoscopy for chronic diarrhea. She is also due for screening. 2. She is still looking into the gastric bypass. Chronic diarrhea may be exacerbated with a gastric bypass. 3. She has moderate to severe reflux with a hiatal hernia that may benefit from repair especially should she want a sleeve. 4. Will need tighter glycemic control as Hgb A1c is elevated to 9.5% consistent with average blood sugars over 200s. 5. She is increased risk for post-procedural complications with her uncontrolled diabetes. Objective - Vital Signs Vital signs: Vital Signs Temp 98.8 F 03/03/19 15:50 Pulse 71 03/03/19 15:50 Resp 16 03/03/19 15:50 BP 129/61 03/03/19 15:50 Pulse Ox Intake & Output 03/02/19 03/03/19 03/03/19 18:59 06:59 18:59 Weight 123.831 kg
== END ==
CPT/HCPCS: 99211

== ENCOUNTER 2019-03-15 07:50 | Day surgery (SDC) | payer OTHER ==
[2019-03-10 11:25] VITALS: BMI 42.7
--- NOTE | 2019-03-14 21:28 | P.GSHP ---
History of Present Illness H&P Date: 03/15/19 CHIEF COMPLAINT: Colon screen HISTORY OF PRESENT ILLNESS: The patient is a 53-year-old female who presents for colon screen. Lower endoscopy was offered for further evaluation and management. PAST MEDICAL HISTORY: Please see list. PAST SURGICAL HISTORY: Please see list. MEDICATIONS: Please see list. ALLERGIES: Please see list. SOCIAL HISTORY: No illicit drug use FAMILY HISTORY: No reports of Crohn disease or ulcerative colitis. REVIEW OF ORGAN SYSTEMS: CONSTITUTIONAL: No reports of fevers or chills. PHYSICAL EXAM: VITAL SIGNS: Stable GENERAL: Well-developed pleasant in no acute distress. HEENT: No scleral icterus. Extraocular movements grossly intact. Moist buccal mucosa. NECK: Supple without lymphadenopathy. CHEST: Unlabored respirations. Equal bilateral excursions. CARDIOVASCULAR: Regular rate and rhythm. Distal 2+ pulses. ABDOMEN: Soft, nontender, nondistended. MUSCULOSKELETAL: No clubbing, cyanosis, or edema. ASSESSMENT: 1. Colon screen. PLAN: 1. Recommend proceeding with a lower endoscopy Past Medical History Past Medical History: Diabetes Mellitus, Skin Disorder, Thyroid Disorder Additional Past Medical History / Comment(s): hypothyroidism, Type 2 DIABETIC , headaches, chronic dirrhea, , neuropathy bilateral feet History of Any Multi-Drug Resistant Organisms: None Reported Past Surgical History: Appendectomy, Bariatric Surgery, Section, Cholecystectomy, Hysterectomy Additional Past Surgical History / Comment(s): LAP BAND INSERTION 2005 (REMOVed 2012 d/t prolapse)., Cervical Cage surgery C3-5 at [facility] 2014, Past Anesthesia/Blood Transfusion Reactions: No Reported Reaction Additional Past Anesthesia/Blood Transfusion Reaction / Comment(s): "OVERDOSED ON MORPHINE HOME HEALTH SPECIALIST AFTER HYSTERECTOMY SURGERY, LED TO CARDIAC ARREST." Smoking Status: Current every day smoker - Past Family History Mother Family Medical History: No Reported History Medications and Allergies Home Medications Medication Instructions Recorded Confirmed Type Gabapentin [Neurontin] 300 mg PO HS 06/29/17 03/10/19 History Ascorbic Acid [Vitamin C] 500 mg PO DAILY 02/12/19 03/10/19 History Insulin Glargine,Hum.rec.anlog 30 unit SQ HS 02/12/19 03/10/19 History [Basaglar Kwikpen U-100] Levothyroxine Sodium [Synthroid] 175 mcg PO DAILY 07/12/19 08/07/19 History Ergocalciferol [Vitamin D2] 50,000 unit PO MO 03/10/19 03/10/19 History Insulin Lispro [Admelog] 6 - 20 unit SQ TID PRN 03/10/19 03/10/19 History Allergies Allergy/AdvReac Type Severity Reaction Status Date / Time adhesive Allergy Rash/Hives Verified 03/10/19 11:19 adhesive tape Allergy Rash/Hives Verified 03/10/19 11:19 influenza virus vaccine, Allergy Rash/Hives Verified 03/10/19 11:19 specific Penicillins Allergy Rash/Hives Verified 03/10/19 11:19 tetanus and diphtheria Allergy Rash/Hives Verified 03/10/19 11:19 toxoids
[2019-03-15 08:10] VITALS: RESP 16; TEMP 97
[2019-03-15 08:14] LABS: Glucose,Whole Blood 96 mg/dL (75-99)
[2019-03-15] MEDS ORDERED: LIDOCAINE 1% INJ 10MG/ML (20 ML MDV) ONE (09:28)
[2019-03-15] MEDS ORDERED: PROPOFOL 10 MG/ML 20 ML VIAL IV ONE (09:28)
--- NOTE | 2019-03-15 10:03 | P.PCN ---
Date of Procedure: 03/15/19 Description of Procedure: PREOPERATIVE DIAGNOSIS: Colonoscopy screening Family history of colon polyps, high risk POSTOPERATIVE DIAGNOSIS: Colonoscopy screening Family history of colon polyps, high risk Tubular adenoma, sigmoid colon OPERATION: Colonoscopy to the ileocecal valve and appendiceal orifice. Colonoscopy with cold forceps biopsy at sigmoid colon. SURGEON: Mireille Spence MD. ANESTHESIA: MAC. INDICATIONS: The patient is a 53-year-old female who presents for colonoscopy screening. She has high-risk family history. Benefits and risks were described and informed consent was obtained. DESCRIPTION OF PROCEDURE: The patient had undergone Suprep. She had been brought into the operating room and laid in the left lateral decubitus position. After adequate intravenous sedation, the rectum was examined with 2% lidocaine jelly. No external hemorrhoids were encountered. The rectal tone was within normal limits. No lesions were palpated in the rectal vault. An Olympus colonoscope was advanced until the ileocecal valve and appendiceal orifice were clearly viewed. The prep was fair with visualization of the mucosal folds. The scope was removed with visualization of each mucosal fold. No scattered diverticulosis was encountered. At the sigmoid colon, 4 mm tubular adenoma was treated with cold forcep biopsy. No evidence of focal colitis was found. Retroflexion of the scope demonstrated grade 2 internal hemorrhoids without active bleeding or inflammation. The colon was desufflated. The patient had tolerated the procedure well. Withdrawal time was over 6 minutes. FINDINGS: Aronchick preparation quality scale 2 (1-5) Internal hemorrhoids, grade 2 No external hemorrhoids No arteriovenous malformations. No scattered diverticulosis was encountered. Removal of 1 polyp: - Cold forceps biopsy at 20 cm from the anal verge, 4 mm polyp, sigmoid colon No focal colitis. RECOMMENDATIONS: With her family history, repeat colonoscopy 5 years, 2023 Plan - Discharge Summary Discharge Rx Participant: Yes New Discharge Prescriptions: No Action Gabapentin [Neurontin] 300 mg PO HS Insulin Glargine,Hum.rec.anlog [Basaglar Kwikpen U-100] 30 unit SQ HS Ascorbic Acid [Vitamin C] 500 mg PO DAILY Levothyroxine Sodium [Synthroid] 175 mcg PO DAILY Ergocalciferol [Vitamin D2] 50,000 unit PO MO Insulin Lispro [Admelog] 6 - 20 unit SQ TID PRN PRN Reason: ELEVATED BLOOD SUGAR Discharge Medication List Gabapentin [Neurontin] 300 mg PO HS 11/26/17 [History] Ascorbic Acid [Vitamin C] 500 mg PO DAILY 02/12/19 [History] Insulin Glargine,Hum.rec.anlog [Basaglar Kwikpen U-100] 30 unit SQ HS 02/12/19 [History] Levothyroxine Sodium [Synthroid] 175 mcg PO DAILY 02/12/19 [History] Ergocalciferol [Vitamin D2] 50,000 unit PO MO 03/10/19 [History] Insulin Lispro [Admelog] 6 - 20 unit SQ TID PRN 03/10/19 [History] Follow up Appointment(s)/Referral(s): [facility],. [NON-STAFF] - 04/07/19 Patient Instructions/Handouts: *Sur[facility] - (Anesthesia) Endoscopy Discharge Instructions, Colonoscopy (DC), Colorectal Polyps (IP) Activity/Diet/Wound Care/Special Instructions: Repeat colonoscopy in 5 years, 2023 Discharge Disposition: HOME SELF-CARE
[2019-03-15 10:04] LABS: Glucose,Whole Blood 125 mg/dL (75-99)
[2019-03-15 10:13] VITALS: BP 108/69; PULSE 65
== END 2019-03-15 10:27 | disposition home or self-care (01) ==
LOC: ORWHC2ENDO 07:50
PROVIDERS: ATTEND Surgery Plastic and Reconstructive Surgery
DX: Z12.11 Encounter for screening for malignant neoplasm of colon (principal); K63.5 Polyp of colon; Z83.71 Family history of colonic polyps; K64.1 Second degree hemorrhoids; E11.42 Type 2 diabetes mellitus with diabetic polyneuropathy; E03.9 Hypothyroidism, unspecified; E66.01 Morbid (severe) obesity due to excess calories; Z68.41 Body mass index [BMI] 40.0-44.9, adult; F17.210 Nicotine dependence, cigarettes, uncomplicated; Z90.49 Acquired absence of other specified parts of digestive tract; Z90.710 Acquired absence of both cervix and uterus; Z98.1 Arthrodesis status; Z97.2 Presence of dental prosthetic device (complete) (partial); Z79.890 Hormone replacement therapy; Z79.4 Long term (current) use of insulin; Z79.899 Other long term (current) drug therapy; Z88.0 Allergy status to penicillin; Z88.7 Allergy status to serum and vaccine
CPT/HCPCS: 88305; 45380; J2001; J2704

== ENCOUNTER → 2019-07-19 | Outpatient (CLI) | payer OTHER ==
[2019-07-19 13:07] VITALS: BMI 45.3
== END | disposition home or self-care (01) ==
LOC: BARWHC3 08:50
PROVIDERS: ATTEND Surgery Plastic and Reconstructive Surgery
DX: E66.01 Morbid (severe) obesity due to excess calories (principal); E11.65 Type 2 diabetes mellitus with hyperglycemia; Z68.42 Body mass index [BMI] 45.0-49.9, adult
CPT/HCPCS: 97804

== ENCOUNTER 2019-10-11 17:02 | Emergency (ER) | payer OTHER ==
[2019-10-11 17:13] VITALS: RESP 18
[2019-10-11] MEDS ORDERED: SODIUM CHLORIDE 0.9% 1,000 ML IV STA (17:35)
[2019-10-11] MEDS ORDERED: ONDANSETRON 4 MG/2 ML VIAL IVP STA (17:35)
[2019-10-11] MEDS ORDERED: HYDROmorphone 0.5 MG/0.5 ML SYRINGE IVP STA ×2 (17:35→20:06)
[2019-10-11] MEDS ORDERED: LORazepam 2 MG/ML INJ IV STA (17:36)
[2019-10-11 17:47] LABS: Glucose,Whole Blood 159 mg/dL (75-99)
--- NOTE | 2019-10-11 17:54 | ED ---
General Adult HPI - General Chief complaint: Nausea/Vomiting/Diarrhea Stated complaint: vomiting Time Seen by Provider: 10/11/19 17:21 Source: patient Mode of arrival: ambulatory Limitations: no limitations - History of Present Illness Initial comments: 54-year-old female patient with past medical history significant for diabetes mellitus presents to the emergency department today for evaluation of abdominal pain, back pain, and headache. Patient states that she has been sick since around 12:00 this afternoon. States that she has been having some mild right flank pain which seemed to worsen today for the last several days. She did notice some blood in her urine yesterday. Patient has been vomiting since around 1 PM. Patient is reporting the pain to her head is in the temporal regions. She denies any new blurred or double vision. Denies neck pain. She denies any chest pain or shortness of breath. She has had history of lap band procedure but no other abdominal surgeries. States that she was febrile today and is having chills. She did check her blood sugar earlier and it was 72 and 77. She has not taken any of her insulin or diabetic medications today. Denies taking any medication for her symptoms. Patient denies any recent rash, abdominal pain, diarrhea, constipation, numbness, tingling, dizziness, weakness, dysuria, urinary urgency, urinary frequency, or any other complaints. - Related Data Home Medications Medication Instructions Recorded Confirmed Gabapentin [Neurontin] 300 mg PO HS 06/29/17 07/19/19 Ascorbic Acid [Vitamin C] 500 mg PO DAILY 02/12/19 07/19/19 Insulin Glargine,Hum.rec.anlog 30 unit SQ HS 02/12/19 07/19/19 [Basaglar Kwikpen U-100] Levothyroxine Sodium [Synthroid] 175 mcg PO DAILY 02/12/19 07/19/19 Ergocalciferol [Vitamin D2] 50,000 unit PO MO 03/10/19 07/19/19 Insulin Lispro [Admelog] 6 - 20 unit SQ TID PRN 03/10/19 07/19/19 Previous Rx's Medication Instructions Recorded Ciprofloxacin HCl [Cipro] 500 mg PO Q12HR #14 tablet 10/11/19 metroNIDAZOLE [Flagyl] 500 mg PO QID #40 tab 10/11/19 Allergies Allergy/AdvReac Type Severity Reaction Status Date / Time adhesive Allergy Rash/Hives Verified 10/11/19 17:14 adhesive tape Allergy Rash/Hives Verified 10/11/19 17:14 influenza virus vaccine, Allergy Rash/Hives Verified 10/11/19 17:14 specific Penicillins Allergy Rash/Hives Verified 10/11/19 17:14 tetanus and diphtheria Allergy Rash/Hives Verified 10/11/19 17:14 toxoids Review of Systems ROS Statement: Those systems with pertinent positive or pertinent negative responses have been documented in the HPI. ROS Other: All systems not noted in ROS Statement are negative. Past Medical History Past Medical History: Diabetes Mellitus, Skin Disorder, Thyroid Disorder Additional Past Medical History / Comment(s): hypothyroidism, Type 2 DIABETIC , headaches, chronic dirrhea, , neuropathy bilateral feet History of Any Multi-Drug Resistant Organisms: None Reported Past Surgical History: Appendectomy, Bariatric Surgery, Section, Cholecystectomy, Hysterectomy Additional Past Surgical History / Comment(s): LAP BAND INSERTION 2005 (REMOVed 2011 d/t prolapse)., Cervical Cage surgery C3-5 at [facility] 2014, Past Anesthesia/Blood Transfusion Reactions: No Reported Reaction Additional Past Anesthesia/Blood Transfusion Reaction / Comment(s): "OVERDOSED ON MORPHINE WARP SPOOLER AFTER HYSTERECTOMY SURGERY, LED TO CARDIAC ARREST." Past Psychological History: No Psychological Hx Reported Smoking Status: Current every day smoker - Past Family History Mother Family Medical History: No Reported History General Exam Limitations: no limitations General appearance: alert, in no apparent distress, other (This is a well- developed, well-nourished adult female patient in no acute distress. Vital signs upon presentation are temperature 99.1F, pulse 89, respirations 18, blood pressure 136/78, pulse ox 100% on room air.) Eye exam: Present: normal appearance, PERRL, EOMI. Absent: scleral icterus, conjunctival injection, periorbital swelling ENT exam: Present: normal exam, normal oropharynx, mucous membranes moist Respiratory exam: Present: normal lung sounds bilaterally. Absent: respiratory distress, wheezes, rales, rhonchi, stridor Cardiovascular Exam: Present: regular rate, normal rhythm, normal heart sounds. Absent: systolic murmur, diastolic murmur, rubs, gallop, clicks GI/Abdominal exam: Present: soft, tenderness (Generalized), guarding, normal bowel sounds. Absent: distended, rebound, rigid Neurological exam: Present: alert, oriented X3, CN II-XII intact Psychiatric exam: Present: normal affect, normal mood Skin exam: Present: warm, dry, intact, normal color. Absent: rash Course Vital Signs 10/11/19 10/11/19 10/11/19 17:07 19:42 21:13 Temperature 99.1 F Pulse Rate 89 98 82 Respiratory 18 18 18 Rate Blood Pressure 136/78 133/59 112/47 O2 Sat by Pulse 100 99 98 Oximetry 10/11/19 10/11/19 22:29 23:04 Temperature 99 F 99 F Pulse Rate 82 Respiratory 18 Rate Blood Pressure 112/47 O2 Sat by Pulse 98 Oximetry EKG Findings - EKG Comments: EKG Findings:: EKG obtained at 1807 shows normal sinus rhythm with a ventricular rate of 79, HI interval 140, QRS duration 84, QT 386, QTc 442. No evidence of ST elevation or depression. Medical Decision Making - Medical Decision Making 54-year-old female patient presented to the emergency department today for evaluation of headache, body aches, abdominal discomfort. Patient reports vomiting.the day today. Physical examination did reveal generalized abdominal tenderness. She is neurologically intact with no focal deficits. Patient did exhibit some weakness and unsteady gait and walking. Labs reviewed and did reveal mildly elevated white blood cell, he did have elevated lactic acid. Blood sugar was within acceptable parameters. CT brain was unremarkable. CT abdomen and pelvis did show possible colitis from the sigmoid colon up to the splenic flexure, study was limited. I did discuss findings and results with the patient's family. She did seem improved after receiving IV fluids and pain medication. She'll be discharged to follow up with her primary care physician for recheck in 1-2 days. Will give Flagyl and Cipro. Return parameters were discussed in detail. She verbalizes understanding and agrees with this plan. - Lab Data Result diagrams: 10/11/19 17:44 10/11/19 17:44 Lab Results 10/11/19 10/11/19 10/11/19 Range/Units 17:43 17:44 17:44 WBC 12.0 H (3.8-10.6) k/uL RBC 5.05 (3.80-5.40) m/uL Hgb 14.8 (11.4-16.0) gm/dL Hct 44.6 (34.0-46.0) % MCV 88.2 (80.0-100.0) fL MCH 29.4 (25.0-35.0) pg MCHC 33.3 (31.0-37.0) g/dL RDW 12.7 (11.5-15.5) % Plt Count 404 (150-450) k/uL Neutrophils % 84 % Lymphocytes % 11 % Monocytes % 3 % Eosinophils % 1 % Basophils % 1 % Neutrophils # 10.1 H (1.3-7.7) k/uL Lymphocytes # 1.3 (1.0-4.8) k/uL Monocytes # 0.4 (0-1.0) k/uL Eosinophils # 0.1 (0-0.7) k/uL Basophils # 0.1 (0-0.2) k/uL Sodium 137 (137-145) mmol/L Potassium 4.6 (3.5-5.1) mmol/L Chloride 100 (98-107) mmol/L Carbon Dioxide 25 (22-30) mmol/L Anion Gap 12 mmol/L BUN 19 H (7-17) mg/dL Creatinine 0.85 (0.52-1.04) mg/dL Est GFR (CKD-EPI)AfAm >90 (>60 ml/min/1.73 sqM) Est GFR (CKD-EPI)NonAf 79 (>60 ml/min/1.73 sqM) Glucose 165 H (74-99) mg/dL POC Glucose (mg/dL) 159 H (75-99) mg/dL POC Glu [employer] ID Rolando Yovany Lactic Ac Sepsis Rflx Plasma Lactic Acid Sandeep (0.7-2.0) mmol/L Calcium 9.6 (8.4-10.2) mg/dL Total Bilirubin 0.5 (0.2-1.3) mg/dL AST 34 (14-36) U/L ALT 22 (4-34) U/L Alkaline Phosphatase 195 H (38-126) U/L Troponin I (0.000-0.034) ng/mL Total Protein 8.1 (6.3-8.2) g/dL Albumin 4.4 (3.5-5.0) g/dL Amylase 36 (30-110) U/L Lipase 41 (23-300) U/L Urine Color Urine Appearance (Clear) Urine pH (5.0-8.0) Ur Specific [place] (1.001-1.035) Urine Protein (Negative) Urine Glucose (UA) (Negative) Urine Ketones (Negative) Urine Blood (Negative) Urine Nitrite (Negative) Urine Bilirubin (Negative) Urine Urobilinogen (<2.0) mg/dL Ur Leukocyte Esterase (Negative) Urine RBC (0-5) /hpf Urine WBC (0-5) /hpf Ur Squamous Epith Cells (0-4) /hpf Urine Mucus (None) /hpf Urine Opiates Screen (NotDetected) Ur Oxycodone Screen (NotDetected) Urine Methadone Screen (NotDetected) Ur Propoxyphene Screen (NotDetected) Ur Barbiturates Screen (NotDetected) U Tricyclic Antidepress (NotDetected) Ur Phencyclidine Scrn (NotDetected) Ur Amphetamines Screen (NotDetected) U Methamphetamines Scrn (NotDetected) U Benzodiazepines Scrn (NotDetected) Urine Cocaine Screen (NotDetected) U Marijuana (THC) Screen (NotDetected) 10/11/19 10/11/19 10/11/19 Range/Units 17:44 17:44 18:47 WBC (3.8-10.6) k/uL RBC (3.80-5.40) m/uL Hgb (11.4-16.0) gm/dL Hct (34.0-46.0) % MCV (80.0-100.0) fL MCH (25.0-35.0) pg MCHC (31.0-37.0) g/dL RDW (11.5-15.5) % Plt Count (150-450) k/uL Neutrophils % % Lymphocytes % % Monocytes % % Eosinophils % % Basophils % % Neutrophils # (1.3-7.7) k/uL Lymphocytes # (1.0-4.8) k/uL Monocytes # (0-1.0) k/uL Eosinophils # (0-0.7) k/uL Basophils # (0-0.2) k/uL Sodium (137-145) mmol/L Potassium (3.5-5.1) mmol/L Chloride (98-107) mmol/L Carbon Dioxide (22-30) mmol/L Anion Gap mmol/L BUN (7-17) mg/dL Creatinine (0.52-1.04) mg/dL Est GFR (CKD-EPI)AfAm (>60 ml/min/1.73 sqM) Est GFR (CKD-EPI)NonAf (>60 ml/min/1.73 sqM) Glucose (74-99) mg/dL POC Glucose (mg/dL) (75-99) mg/dL POC Glu [employer] ID Lactic Ac Sepsis Rflx Y Plasma Lactic Acid Sandeep 2.8 H* (0.7-2.0) mmol/L Calcium (8.4-10.2) mg/dL Total Bilirubin (0.2-1.3) mg/dL AST (14-36) U/L ALT (4-34) U/L Alkaline Phosphatase (38-126) U/L Troponin I <0.012 (0.000-0.034) ng/mL Total Protein (6.3-8.2) g/dL Albumin (3.5-5.0) g/dL Amylase (30-110) U/L Lipase (23-300) U/L Urine Color Urine Appearance (Clear) Urine pH (5.0-8.0) Ur Specific [place] (1.001-1.035) Urine Protein (Negative) Urine Glucose (UA) (Negative) Urine Ketones (Negative) Urine Blood (Negative) Urine Nitrite (Negative) Urine Bilirubin (Negative) Urine Urobilinogen (<2.0) mg/dL Ur Leukocyte Esterase (Negative) Urine RBC (0-5) /hpf Urine WBC (0-5) /hpf Ur Squamous Epith Cells (0-4) /hpf Urine Mucus (None) /hpf Urine Opiates Screen (NotDetected) Ur Oxycodone Screen (NotDetected) Urine Methadone Screen (NotDetected) Ur Propoxyphene Screen (NotDetected) Ur Barbiturates Screen (NotDetected) U Tricyclic Antidepress (NotDetected) Ur Phencyclidine Scrn (NotDetected) Ur Amphetamines Screen (NotDetected) U Methamphetamines Scrn (NotDetected) U Benzodiazepines Scrn (NotDetected) Urine Cocaine Screen (NotDetected) U Marijuana (THC) Screen (NotDetected) 10/11/19 10/11/19 10/11/19 Range/Units 20:00 21:45 21:55 WBC (3.8-10.6) k/uL RBC (3.80-5.40) m/uL Hgb (11.4-16.0) gm/dL Hct (34.0-46.0) % MCV (80.0-100.0) fL MCH (25.0-35.0) pg MCHC (31.0-37.0) g/dL RDW (11.5-15.5) % Plt Count (150-450) k/uL Neutrophils % % Lymphocytes % % Monocytes % % Eosinophils % % Basophils % % Neutrophils # (1.3-7.7) k/uL Lymphocytes # (1.0-4.8) k/uL Monocytes # (0-1.0) k/uL Eosinophils # (0-0.7) k/uL Basophils # (0-0.2) k/uL Sodium (137-145) mmol/L Potassium (3.5-5.1) mmol/L Chloride (98-107) mmol/L Carbon Dioxide (22-30) mmol/L Anion Gap mmol/L BUN (7-17) mg/dL Creatinine (0.52-1.04) mg/dL Est GFR (CKD-EPI)AfAm (>60 ml/min/1.73 sqM) Est GFR (CKD-EPI)NonAf (>60 ml/min/1.73 sqM) Glucose (74-99) mg/dL POC Glucose (mg/dL) 148 H (75-99) mg/dL POC Glu Supervisor [employer] ID Jose De Jesus Siddiqui Lactic Ac Sepsis Rflx Plasma Lactic Acid Sandeep (0.7-2.0) mmol/L Calcium (8.4-10.2) mg/dL Total Bilirubin (0.2-1.3) mg/dL AST (14-36) U/L ALT (4-34) U/L Alkaline Phosphatase (38-126) U/L Troponin I (0.000-0.034) ng/mL Total Protein (6.3-8.2) g/dL Albumin (3.5-5.0) g/dL Amylase (30-110) U/L Lipase (23-300) U/L Urine Color Yellow Urine Appearance Clear (Clear) Urine pH 8.5 H (5.0-8.0) Ur Specific [place] >1.050 H (1.001-1.035) Urine Protein 1+ H (Negative) Urine Glucose (UA) Negative (Negative) Urine Ketones 2+ H (Negative) Urine Blood Negative (Negative) Urine Nitrite Negative (Negative) Urine Bilirubin Negative (Negative) Urine Urobilinogen <2.0 (<2.0) mg/dL Ur Leukocyte Esterase Negative (Negative) Urine RBC 7 H (0-5) /hpf Urine WBC <1 (0-5) /hpf Ur Squamous Epith Cells 1 (0-4) /hpf Urine Mucus Rare H (None) /hpf Urine Opiates Screen Detected H (NotDetected) Ur Oxycodone Screen Not Detected (NotDetected) Urine Methadone Screen Not Detected (NotDetected) Ur Propoxyphene Screen Not Detected (NotDetected) Ur Barbiturates Screen Not Detected (NotDetected) U Tricyclic Antidepress Not Detected (NotDetected) Ur Phencyclidine Scrn Not Detected (NotDetected) Ur Amphetamines Screen Not Detected (NotDetected) U Methamphetamines Scrn Not Detected (NotDetected) U Benzodiazepines Scrn Detected H (NotDetected) Urine Cocaine Screen Not Detected (NotDetected) U Marijuana (THC) Screen Not Detected (NotDetected) - Radiology Data Radiology results: report reviewed, image reviewed CT brain without contrast was obtained. Report read in its entirety. Impression by Dr. Bravo shows no acute intracranial hemorrhage or midline shift. There is mild diffuse age related cerebral atrophy. Some acute on chronic left sphenoid sinusitis. Present. This is improved from 2017. CT abdomen and pelvis was obtained. Report was reviewed in its entirety. Impression by shows markedly suboptimal study, suspect mild uncomplicated acute colitis from cecum to the splenic flexure differential includes infectious inflammatory an ischemic etiologies. Correlate clinically. Disposition Clinical Impression: Colitis, Weakness, Vomiting Disposition: HOME SELF-CARE Condition: Good Instructions (If sedation given, give patient instructions): Acute Nausea and Vomiting (ED), Colitis (ED) Additional Instructions: Complete antibiotic prescriptions in full. Follow-up through primary care physician for recheck in 1-2 days. Return to the emergency department immediately for any new, worsening, or concerning symptoms. Prescriptions: Ciprofloxacin HCl [Cipro] 500 mg PO Q12HR #14 tablet metroNIDAZOLE [Flagyl] 500 mg PO QID #40 tab Is patient prescribed a controlled substance at d/c from ED?: No Referrals: Jaymie Mckeon DO [Primary Care Provider] - 1-2 days Time of Disposition: 23:07
[2019-10-11 18:16] LABS: Basophils # (A) 0.1 k/uL (0-0.2); Basophils % (A) 1 %; Eosinophils # (A) 0.1 k/uL (0-0.7); Eosinophils % (A) 1 %; HCT 44.6 % (34.0-46.0); HGB 14.8 gm/dL (11.4-16.0); Lymphocytes # (A) 1.3 k/uL (1.0-4.8); Lymphocytes % (A) 11 %; MCH 29.4 pg (25.0-35.0); MCHC 33.3 g/dL (31.0-37.0); MCV 88.2 fL (80.0-100.0); Mean Platelet Volume 7.8; Monocytes # (A) 0.4 k/uL (0-1.0); Monocytes % (A) 3 %; Neutrophils # (A) 10.1 k/uL (1.3-7.7); Neutrophils % (A) 84 %; Platelet Count 404 k/uL (150-450); RBC 5.05 m/uL (3.80-5.40); RDW 12.7 % (11.5-15.5)
[2019-10-11 18:30] LABS: ALT 22 U/L (4-34); AST 34 U/L (14-36); African American GFR (CKD) >90 (>60 ml/min/1.73 sqM); Albumin 4.4 g/dL (3.5-5.0); Alkaline Phosphatase 195 U/L (38-126); Amylase 36 U/L (30-110); Anion Gap 12 mmol/L; Blood Urea Nitrogen 19 mg/dL (7-17); Calcium 9.6 mg/dL (8.4-10.2); Carbon Dioxide 25 mmol/L (22-30); Chloride 100 mmol/L (98-107); Glucose 165 mg/dL (74-99); Non-African American GFR(CKD) 79 (>60 ml/min/1.73 sqM); Potassium 4.6 mmol/L (3.5-5.1); Sodium 137 mmol/L (137-145); Total Bilirubin 0.5 mg/dL (0.2-1.3); Total Protein 8.1 g/dL (6.3-8.2)
--- NOTE | 2019-10-11 19:31 | CT ---
EXAMINATION TYPE: CT abdomen pelvis w con DATE OF EXAM: 10/11/2019 HISTORY: Abdominal pain with vomiting and fever. CT DLP: 3481mGycm Automated Exposure Control for Dose Reduction was Utilized. CONTRAST: CT scan of the abdomen and pelvis is performed with IV Contrast, patient injected with 100 mL of Isov ue 300. COMPARISON: None. FINDINGS: Examination was suboptimal secondary to patient's large body habitus and inability to hold breath. There is also artifact from patient's overlying upper extremities. LUNG BASES: No significant abnormality is appreciated. LIVER/GB: Gallbladder not well seen and may be contracted. PANCREAS: Suspect mild to moderate generalized atrophy. SPLEEN: No significant abnormality is seen. ADRENALS: No significant abnormality is seen. KIDNEYS: No significant abnormality is seen. BOWEL: Suboptimal evaluation without enteric contrast. No suspicious small or large bowel dilatation is seen. Riot-qu-nxtpogeh wall thickening from cecum through the splenic flexure UTERUS/ADNEXA: Uterus surgically absent or markedly atrophic. Remnant left ovary thought present axia l image 75. LYMPH NODES: No greater than 1cm abdominal or pelvic lymph nodes are appreciated. OSSEOUS STRUCTURES: No significant abnormality is seen. OTHER: No significant additional abnormality is seen. IMPRESSION: Markedly Suboptimal study, suspect a mild uncomplicated acute colitis from cecum to the s plenic flexure differential includes infectious inflammatory and ischemic etiologies. Correlate clini winsome.
[2019-10-11 20:54] LABS: Appearance,Urine Clear (Clear); Bilirubin,Urine Negative (Negative); Blood,Urine Negative (Negative); Color,Urine Yellow; Glucose,Urine (UA) Negative (Negative); Ketones,Urine 2+ (Negative); Leukocyte Esterase,Urine Negative (Negative); Mucus,Urine Rare /hpf; Nitrite,Urine Negative (Negative); PH, Urine 8.5 (5.0-8.0); Protein,Urine 1+ (Negative); RBC,Urine 7 /hpf (0-5); Squamous Epithelial Cell,Urine 1 /hpf (0-4); Urobilinogen,Urine <2.0 mg/dL (<2.0); WBC,Urine <1 /hpf (0-5)
[2019-10-11 20:55] LABS: Specific Gravity,Urine >1.050 (1.001-1.035)
[2019-10-11 21:14] VITALS: BP 112/47; PULSE 82
--- NOTE | 2019-10-11 21:24 | CT ---
EXAMINATION TYPE: CT brain wo con DATE OF EXAM: 10/11/2019 HISTORY: headache CT DLP: 1072.4 mGycm. Automated Exposure Control for Dose Reduction was Utilized. TECHNIQUE: CT scan of the head is performed without contrast. COMPARISON: CT brain March 02, 2017. FINDINGS: There is no acute intracranial hemorrhage or midline shift identified. There is diffuse v entricular and sulcal prominence consistent with diffuse age-related cerebral atrophy. Nunez-white mat ter differentiation fairly well maintained. Small eccentric mucous retention cyst or polyp posterior left maxillary sinus and some dependent fluid dominant left sphenoid sinus with more curvilinear muco juan pablo thickening left lateral aspect anteriorly otherwise paranasal sinuses are clear. The globes are intact bilaterally. IMPRESSION: No acute intracranial hemorrhage or midline shift. There is mild diffuse age-related ce rebral atrophy. Some acute on chronic left sphenoid sinusitis is thought present. This is noted impro mily from 2017 study.
[2019-10-11 21:46] LABS: Glucose,Whole Blood 148 mg/dL (75-99)
[2019-10-11] MEDS ORDERED: SODIUM CHLORIDE 0.9% 1,000 ML IV ONE (21:54)
[2019-10-11] MEDS ORDERED: metroNIDAZOLE 500 MG TAB PO STA (22:09)
[2019-10-11] MEDS ORDERED: CIPROFLOXACIN HCL 250 MG TAB PO STA (22:09)
[2019-10-11 22:30] VITALS: TEMP 99
[2019-10-11 22:32] LABS: Amphetamine Screen,Urine Not Detected (NotDetected); Barbiturate Screen,Urine Not Detected (NotDetected); Benzodiazepines Screen,Urine Detected (NotDetected); Cocaine Screen,Urine Not Detected (NotDetected); Methadone Screen, Urine Not Detected (NotDetected); Opiate Screen,Urine Detected (NotDetected); Oxycodone Screen, Urine Not Detected (NotDetected); Phencyclidine Screen,Urine Not Detected (NotDetected); Tricyclic Antidepressant,Urine Not Detected (NotDetected); Urn Cannabinoid Scrn Not Detected (NotDetected)
== END 2019-10-11 23:23 | disposition home or self-care (01) ==
LOC: EC 17:02
DX: K52.9 Noninfective gastroenteritis and colitis, unspecified (principal); R53.1 Weakness; R11.10 Vomiting, unspecified; R51 Headache; R26.9 Unspecified abnormalities of gait and mobility; D72.829 Elevated white blood cell count, unspecified; R31.9 Hematuria, unspecified; R74.0 Nonspecific elevation of levels of transaminase and lactic acid dehydrogenase [LDH]; E11.42 Type 2 diabetes mellitus with diabetic polyneuropathy; E07.9 Disorder of thyroid, unspecified; F17.200 Nicotine dependence, unspecified, uncomplicated; Z88.0 Allergy status to penicillin; Z88.7 Allergy status to serum and vaccine; Z91.048 Other nonmedicinal substance allergy status; Z79.4 Long term (current) use of insulin; Z79.890 Hormone replacement therapy; Z79.899 Other long term (current) drug therapy; Z90.49 Acquired absence of other specified parts of digestive tract; Z98.890 Other specified postprocedural states; M54.9 Dorsalgia, unspecified
CPT/HCPCS: 36415; 93005; 80053; 82150; 83605; 83690; 84484; 85025; 81001; 87040; 80306; 70450; 74177; 99284; 96374; 96375 ×3; 96376; 96361 ×4; J2060; J2405; J1170; Q9967

== ENCOUNTER → 2020-07-19 | Outpatient (CLI) | payer MEDICARE, OTHER ==
[2020-07-19 15:08] VITALS: BP 160/94; PULSE 66; RESP 18; TEMP 98.1; BMI 48.4
--- NOTE | 2020-07-19 15:25 | P.PN ---
Subjective Progress Note Date: 07/19/20 DATE OF SERVICE: 07/19/2020 CHIEF COMPLAINT: Morbid obesity HISTORY OF PRESENT ILLNESS: Cydney Gray is a 55-year-old female who comes in with lifelong morbid obesity. She is smoking. She is looking into the gastric bypass for weight loss. She has tried weight loss in the past year with over 10 pounds weight gain. She is looking to starting over. She reports needing to get a new PCP and new insurance. She comes in with moderate to severe heartburn and is looking into the gastric bypass to resolve her heartburn. She presents in consultation. At height of 5 feet 5.25 inches, her ideal body weight is 149 pounds. She comes in 292 pounds from 272 pounds, 1 year ago. She has gained 13 pounds in 1 year. Her body mass index is up from 45.1 to 48.5. She is 144 pounds overweight. PAST MEDICAL HISTORY: 1. Morbid obesity due to excess calories 2. Body mass index of 48.4 3. Osteoarthritis of the knees. 4. Osteoarthritis of the lower back. 5. Hypothyroidism. 6. Gastroesophageal reflux disease 7. Diabetes type 2 insulin-dependent 8. Diabetic neuropathy 9. Gastric ulcers 10. Colon polyps PAST SURGICAL HISTORY: 1. Appendectomy 2. Hysterectomy 3. Cholecystectomy 4. Adjustable gastric band status post removal 5. Colonoscopy 6. Upper endoscopy 7. section HOME MEDICATIONS: Home Medications Medication Instructions Recorded Confirmed Gabapentin [Neurontin] 300 mg PO HS 06/29/17 02/12/19 Ascorbic Acid [Vitamin C] 500 mg PO DAILY 02/12/19 02/12/19 Insulin Glargine,Hum.rec.anlog 30 unit SQ HS 02/12/19 02/12/19 [Basaglar Emeliaikpen U-100] Insulin Lispro [Admelog] 6 - 12 unit SQ AC-TID PRN 02/12/19 02/12/19 Levothyroxine Sodium [Synthroid] 175 mcg PO DAILY 02/12/19 02/12/19 ALLERGIES: Allergies Allergy/AdvReac Type Severity Reaction Status Date / Time adhesive Allergy Rash/Hives Verified 02/12/19 09:51 adhesive tape Allergy Rash/Hives Verified 02/12/19 10:06 influenza virus vaccine, Allergy Rash/Hives Verified 02/12/19 09:51 specific Penicillins Allergy Rash/Hives Verified 02/12/19 09:51 tetanus and diphtheria Allergy Rash/Hives Verified 02/12/19 09:51 toxoids SUN Allergy Unknown Rash/Hives Uncoded 02/12/19 09:51 SOCIAL HISTORY: Tobacco use. FAMILY HISTORY: No family history of ulcerative colitis disease or Crohn's disease. No lupus in the family. No reports of stomach or esophageal cancer. REVIEW OF ORGAN SYSTEMS: CONSTITUTIONAL: HEENT: Denies any active troubles with vision or hearing. Has troubles with swallowing. ENDOCRINE: Has diabetes. Has hypothyroidism. CARDIOVASCULAR: Past reports of palpitations or heart attacks or chest pain. RESPIRATORY: Has daytime somnolence. No asthma. GASTROINTESTINAL: Denies any bright red blood per rectum. Has diarrhea. No constipation. MUSCULOSKELETAL: Has lower back pain and joint pain. Has osteoarthritis of the knees. NEURO: No headaches. No seizure disorders. PSYCH: No depression. No suicidal ideation. RHEUMATOLOGIC: No lupus. No rheumatoid arthritis. HEMATOLOGIC: Denies any abnormal bleeding or bruising. No personal history of DVTs. SKIN: No rash. No skin cancer. PHYSICAL EXAM: VITAL SIGNS: Height 5 foot 5.25 inches, weight 293 pounds. BMI 48.5 Vital Signs Temp 98.1 F 07/19/20 15:00 Pulse 66 07/19/20 15:00 Resp 18 07/19/20 15:00 BP 160/94 07/19/20 15:00 Pulse Ox 96 07/19/20 15:00 GENERAL: Well-developed in no acute distress. HEENT: No scleral icterus. Extraocular movements grossly intact. Hears conversational speech. No nasal drainage. NECK: Supple without lymphadenopathy. CHEST: Nonlabored respirations with equal bilateral excursions. CARDIOVASCULAR: Regular rate and regular rhythm. Distal 2+ pulses. ABDOMEN: Obese, soft, nontender, nondistended. MUSCULOSKELETAL: No clubbing, cyanosis. Gross strength 5/5 distal lower extremities. NEURO: No focal or lateralizing signs. Cranial nerves 2 through 12 grossly within normal limits. PSYCH: Appropriate affect. Alert and oriented to person, place and time. SKIN: Good skin turgor. Well perfused. ASSESSMENT: 1. Morbid obesity due to excess calories 2. Body mass index of 48.5 3. Osteoarthritis of the knees. 4. Osteoarthritis of the lower back. 5. Hypothyroidism. 6. Gastroesophageal reflux disease 7. Diabetes type 2 insulin-dependent 8. Diabetic neuropathy 9. Gastric ulcers 10. Chronic diarrhea 11. Hiatal hernia 12. Vitamin A deficiency 13. Vitamin D deficiency 14. Tobacco abuse disorder. 15. Tobacco cessation education PLAN: 1. She is still smoking. Will need urine nicotine testing with tobacco cessation and counseling over 3 minutes performed. 2. Per requirements, medical supervised weight loss described. Protein intake over 65 grams daily described. 3. Recommend continued food exercise journal. 4. Recommend bariatric labs 5. Psych assessment described 6. Cardiac risk assessment with recent 12-lead EKG described. Objective - Vital Signs Vital signs: Vital Signs Temp 98.1 F 07/19/20 15:00 Pulse 66 07/19/20 15:00 Resp 18 07/19/20 15:00 BP 160/94 07/19/20 15:00 Pulse Ox 96 07/19/20 15:00 Intake & Output 07/18/20 07/19/20 07/19/20 18:59 06:59 18:59 Weight 133.175 kg
== END | disposition home or self-care (01) ==
LOC: BARWHC3 14:37
PROVIDERS: ATTEND Surgery Plastic and Reconstructive Surgery
DX: Z48.815 Encounter for surgical aftercare following surgery on the digestive system (principal); E66.01 Morbid (severe) obesity due to excess calories; M17.0 Bilateral primary osteoarthritis of knee; K21.9 Gastro-esophageal reflux disease without esophagitis; E11.40 Type 2 diabetes mellitus with diabetic neuropathy, unspecified; E03.9 Hypothyroidism, unspecified; K25.9 Gastric ulcer, unspecified as acute or chronic, without hemorrhage or perforation; K52.9 Noninfective gastroenteritis and colitis, unspecified; E55.9 Vitamin D deficiency, unspecified; E50.9 Vitamin A deficiency, unspecified; Z72.0 Tobacco use; Z88.0 Allergy status to penicillin; Z88.7 Allergy status to serum and vaccine; Z91.09 Other allergy status, other than to drugs and biological substances; Z79.890 Hormone replacement therapy; Z90.49 Acquired absence of other specified parts of digestive tract; Z90.710 Acquired absence of both cervix and uterus; Z98.84 Bariatric surgery status; Z68.42 Body mass index [BMI] 45.0-49.9, adult; Z79.4 Long term (current) use of insulin
CPT/HCPCS: 99211

== ENCOUNTER → 2020-09-04 | Outpatient (CLI) | payer MEDICARE, OTHER ==
[2020-09-04 20:31] LABS: Ferritin 69.3 ng/mL (10.0-291.0)
[2020-09-04 20:34] LABS: Folate, Serum 6.5 ng/mL
[2020-09-04 20:44] LABS: HCT 43.5 % (37.2-46.3); MCHC 32.2 g/dL (32.0-37.0); MCV 90.2 fL (80.0-97.0); Mean Platelet Volume 10.8 fL (9.5-12.2); Platelet Count 333 X 10*3/uL (140-440); RBC 4.82 X 10*6/uL (4.10-5.20); RDW 12.2 % (11.5-14.5); WBC 7.14 X 10*3/uL (4.50-10.00)
[2020-09-04 21:09] LABS: % Iron Saturation 30.07 (12.00-45.00); African American GFR (CKD) 74.5 (60.0-200.0); Albumin/Globulin Ratio 1.48 (1.60-3.17); Anion Gap 4.7 mmol/L (4.00-12.00); Calcium 9.3 mg/dL (8.7-10.3); Carbon Dioxide 32.3 mmol/L (21.6-31.8); Chol/HDL Ratio 3.1; Globulin 2.7 g/dL (1.6-3.3); Magnesium 1.8 mg/dL (1.5-2.4); Non-African American GFR(CKD) 64.3 (60.0-200.0); Phosphorus 2.8 mg/dL (2.4-5.1); Potassium 4.7 mmol/L (3.5-5.5); Total Bilirubin 0.3 mg/dL (0.3-1.2); Total Protein 6.7 g/dL (6.2-8.2)
[2020-09-04 23:13] LABS: Hemoglobin A1C 9.5 % (4.0-6.0)
[2020-09-05 05:27] LABS: INR 0.93 (0.90-1.11); Partial Thromboplastin Time 25.9 sec (23.5-31.0); Prothrombin Time 10.2 sec (9.9-11.9)
[2020-09-05 14:11] LABS: Zinc, Serum 68 ug/dL (60-130)
[2020-09-06 06:23] LABS: Vitamin A 30 ug/dL (38-106)
[2020-09-07 00:52] LABS: Selenium 113 mcg/L (63-160)
[2020-09-08 06:18] LABS: Vit B1(Thiamine) 58 ug/L (38-122)
== END | disposition home or self-care (01) ==
LOC: LABWHC1 12:42
PROVIDERS: ATTEND Surgery Plastic and Reconstructive Surgery
DX: D50.8 Other iron deficiency anemias (principal); K90.89 Other intestinal malabsorption; E55.9 Vitamin D deficiency, unspecified; K74.1 Hepatic sclerosis; N19 Unspecified kidney failure; E89.1 Postprocedural hypoinsulinemia; K50.90 Crohn's disease, unspecified, without complications; E66.01 Morbid (severe) obesity due to excess calories
CPT/HCPCS: 36415; 80053; 80061; 82306; 82525; 82607; 82728; 82746; 83036; 83540; 83550; 83735; 83970; 84100; 84134; 84255; 84425; 84443; 84590; 84630; 85027; 85610; 85730; 93005

== ENCOUNTER → 2020-10-25 | Outpatient (CLI) | payer MEDICARE, OTHER ==
[2020-10-25 14:44] VITALS: BP 144/80; PULSE 74; RESP 18; TEMP 98.2; BMI 49.4
--- NOTE | 2020-10-25 15:19 | P.PN ---
Subjective Progress Note Date: 10/25/20 DATE OF SERVICE: 10/25/2020 CHIEF COMPLAINT: Morbid obesity HISTORY OF PRESENT ILLNESS: Cydney Gray is a 55-year-old female who comes in with lifelong morbid obesity. She comes in with moderate lifestyle changes including any tobacco abuse. She is also improved her blood sugars from over 200s to 100s. She reports hypoglycemic episodes where her blood sugar at home is 43 and 32. She reports gastroesophageal reflux disease. She has personal history of multiple abdominal surgeries. She is looking to the gastric bypass. She comes in with her daughter. At height of 5 feet 5.25 inches, her ideal body weight is 149 pounds. She comes in 298 pounds from 292 pounds, 3 months ago. She has gained 5 pounds in 3 months. Her body mass index is up 49.4. She is 149 pounds overweight. PAST MEDICAL HISTORY: 1. Morbid obesity due to excess calories 2. Body mass index of 49.4 3. Osteoarthritis of the knees. 4. Osteoarthritis of the lower back. 5. Hypothyroidism. 6. Gastroesophageal reflux disease 7. Diabetes type 2 insulin-dependent 8. Diabetic neuropathy 9. Gastric ulcers 10. Colon polyps PAST SURGICAL HISTORY: 1. Appendectomy 2. Hysterectomy 3. Cholecystectomy 4. Adjustable gastric band status post removal 5. Colonoscopy 6. Upper endoscopy 7. section HOME MEDICATIONS: Home Medications Medication Instructions Recorded Confirmed Gabapentin [Neurontin] 300 mg PO HS 06/29/17 02/12/19 Ascorbic Acid [Vitamin C] 500 mg PO DAILY 02/12/19 02/12/19 Insulin Glargine,Hum.rec.anlog 30 unit SQ HS 02/12/19 02/12/19 [Basaglar Kwikpen U-100] Insulin Lispro [Admelog] 6 - 12 unit SQ AC-TID PRN 02/12/19 02/12/19 Levothyroxine Sodium [Synthroid] 175 mcg PO DAILY 02/12/19 02/12/19 ALLERGIES: Allergies Allergy/AdvReac Type Severity Reaction Status Date / Time adhesive Allergy Rash/Hives Verified 02/12/19 09:51 adhesive tape Allergy Rash/Hives Verified 02/12/19 10:06 influenza virus vaccine, Allergy Rash/Hives Verified 02/12/19 09:51 specific Penicillins Allergy Rash/Hives Verified 02/12/19 09:51 tetanus and diphtheria Allergy Rash/Hives Verified 02/12/19 09:51 toxoids SUN Allergy Unknown Rash/Hives Uncoded 02/12/19 09:51 SOCIAL HISTORY: Tobacco use. FAMILY HISTORY: No family history of ulcerative colitis disease or Crohn's disease. No lupus in the family. No reports of stomach or esophageal cancer. REVIEW OF ORGAN SYSTEMS: CONSTITUTIONAL: At height of 5 feet 5.25 inches, her ideal body weight is 149 pounds. She comes in 298 pounds from 292 pounds, 3 months ago. She has gained 5 pounds in 3 months. Her body mass index is up 49.4. She is 149 pounds overweight. HEENT: Denies any active troubles with vision or hearing. Has troubles with swallowing. ENDOCRINE: Has diabetes type II, uncontrolled. Has hypothyroidism. CARDIOVASCULAR: Past reports of palpitations or heart attacks or chest pain. RESPIRATORY: Has daytime somnolence. No asthma. GASTROINTESTINAL: Denies any bright red blood per rectum. Has diarrhea. No constipation. Has gastroesophageal reflux disease. MUSCULOSKELETAL: Has lower back pain and joint pain. Has osteoarthritis of the knees. NEURO: No headaches. No seizure disorders. PSYCH: No depression. No suicidal ideation. RHEUMATOLOGIC: No lupus. No rheumatoid arthritis. HEMATOLOGIC: Denies any abnormal bleeding or bruising. No personal history of DVTs. SKIN: No rash. No skin cancer. PHYSICAL EXAM: VITAL SIGNS: Height 5 foot 5.25 inches, weight 298 pounds. BMI 49.4 Vital Signs Temp 98.2 F 10/25/20 14:32 Pulse 74 10/25/20 14:32 Resp 18 10/25/20 14:32 BP 144/80 10/25/20 14:32 Pulse Ox GENERAL: Well-developed in no acute distress. HEENT: No scleral icterus. Extraocular movements grossly intact. Hears conversational speech. No nasal drainage. NECK: Supple without lymphadenopathy. CHEST: Nonlabored respirations with equal bilateral excursions. CARDIOVASCULAR: Regular rate and regular rhythm. Distal 2+ pulses. ABDOMEN: Obese, soft, nontender, nondistended. MUSCULOSKELETAL: No clubbing, cyanosis. Gross strength 5/5 distal lower extremities. NEURO: No focal or lateralizing signs. Cranial nerves 2 through 12 grossly within normal limits. PSYCH: Appropriate affect. Alert and oriented to person, place and time. SKIN: Good skin turgor. Well perfused. LABS: Hemoglobin A1c down from over 10 to 9.5%. Prealbumin is low at 15. Vitamin A is low at 30. EKG: Normal sinus rhythm ASSESSMENT: 1. Morbid obesity due to excess calories 2. Body mass index of 49.4 3. Osteoarthritis of the knees. 4. Osteoarthritis of the lower back. 5. Hypothyroidism. 6. Gastroesophageal reflux disease 7. Diabetes type 2 insulin-dependent, poorly controlled 8. Diabetic neuropathy 9. Gastric ulcers 10. Chronic diarrhea 11. Hiatal hernia 12. Vitamin A deficiency 13. Vitamin D deficiency 14. Tobacco abuse disorder. 15. Tobacco cessation education PLAN: 1. Recommend urine nicotine for tobacco abuse disorder. 2. Recommend repeat labs including hemoglobin A1c for poorly controlled diabete s 3. Patient does report pre-existing history of multiple abdominal surgeries including change in bowel habits abdominal pain. Recommend robotic lysis of adhesions. 4. She is elevated risk due to pre-existing poorly controlled diabetes including hypertensive heart disease. Objective - Vital Signs Vital signs: Vital Signs Temp 98.2 F 10/25/20 14:32 Pulse 74 10/25/20 14:32 Resp 18 10/25/20 14:32 BP 144/80 10/25/20 14:32 Pulse Ox Intake & Output 10/24/20 10/25/20 10/25/20 18:59 06:59 18:59 Weight 135.624 kg
== END ==
LOC: BARWHC3 14:10
PROVIDERS: ATTEND Surgery Plastic and Reconstructive Surgery
DX: E66.01 Morbid (severe) obesity due to excess calories (principal); M17.0 Bilateral primary osteoarthritis of knee; M47.816 Spondylosis without myelopathy or radiculopathy, lumbar region; E03.9 Hypothyroidism, unspecified; K21.9 Gastro-esophageal reflux disease without esophagitis; E11.40 Type 2 diabetes mellitus with diabetic neuropathy, unspecified; E11.649 Type 2 diabetes mellitus with hypoglycemia without coma; K25.9 Gastric ulcer, unspecified as acute or chronic, without hemorrhage or perforation; K52.9 Noninfective gastroenteritis and colitis, unspecified; K44.9 Diaphragmatic hernia without obstruction or gangrene; E50.9 Vitamin A deficiency, unspecified; E55.9 Vitamin D deficiency, unspecified; F17.200 Nicotine dependence, unspecified, uncomplicated; Z71.6 Tobacco abuse counseling; Z79.890 Hormone replacement therapy; Z79.4 Long term (current) use of insulin; Z68.42 Body mass index [BMI] 45.0-49.9, adult; Z79.899 Other long term (current) drug therapy
CPT/HCPCS: 99211

== ENCOUNTER → 2020-10-25 | Outpatient (CLI) | payer MEDICARE, OTHER | END | disposition home or self-care (01) | LOC: LABWHC1 15:37 | PROVIDERS: ATTEND Surgery Plastic and Reconstructive Surgery | DX: F17.200 Nicotine dependence, unspecified, uncomplicated (principal) | CPT/HCPCS: 80323 ==

== ENCOUNTER 2020-10-27 12:22 | Day surgery (SDC) | payer MEDICARE, OTHER ==
[2020-10-26 11:18] VITALS: BMI 46.8
--- NOTE | 2020-10-27 10:29 | P.GSHP ---
History of Present Illness H&P Date: 10/27/20 CHIEF COMPLAINT: History of intra-abdominal adhesions HISTORY OF PRESENT ILLNESS: The patient is a 55-year-old female who presents with history of intra-abdominal adhesions from multiple prior surgeries. She now presents for diagnostic laparoscopy including lysis of adhesions. PAST MEDICAL HISTORY: Please see list. PAST SURGICAL HISTORY: Please see list. MEDICATIONS: Please see list. ALLERGIES: Please see list. SOCIAL HISTORY: History of Tobacco abuse FAMILY HISTORY: No reports of Crohn disease or ulcerative colitis. REVIEW OF ORGAN SYSTEMS: CONSTITUTIONAL: No reports of fevers or chills. GI: Denies any blood in stools or constipation. PHYSICAL EXAM: VITAL SIGNS: Stable GENERAL: Well-developed pleasant and in no acute distress. HEENT: No scleral icterus. Extraocular movements grossly intact. Moist buccal mucosa. NECK: Supple without lymphadenopathy. CHEST: Unlabored respirations. Equal bilateral excursions. CARDIOVASCULAR: Regular rate and rhythm. Distal 2+ pulses. ABDOMEN: Soft, diffuse abdominal tenderness. No peritonitis. MUSCULOSKELETAL: No clubbing, cyanosis, or edema. ASSESSMENT: 1. Peritoneal adhesions 2. History of multiple abdominal surgeries. PLAN: 1. Robotic lysis of adhesions were described in detail including risk of injury to the intestine, need for further surgery, and open technique. 2. DVT prophylaxis. 3. Antibiotic prophylaxis. Past Medical History Past Medical History: Diabetes Mellitus, Thyroid Disorder Additional Past Medical History / Comment(s): chronic diarrhea, neuropathy bilateral feet, edema melissa feet History of Any Multi-Drug Resistant Organisms: None Reported Past Surgical History: Appendectomy, Bariatric Surgery, Section, Cholecystectomy, Hysterectomy Additional Past Surgical History / Comment(s): LAP BAND INSERTION 2005 (REMOVed 2011 d/t prolapse) Cervical Cage surgery C3-5 at [facility] 2014, left eye scar tissue removed Sep 2020. Past Anesthesia/Blood Transfusion Reactions: Previous Problems w/ Anesthesia Additional Past Anesthesia/Blood Transfusion Reaction / Comment(s): "OVERDOSED ON MORPHINE REPRESENTATIVE AFTER HYSTERECTOMY SURGERY, LED TO CARDIAC ARREST." Smoking Status: Former smoker - Past Family History Mother Family Medical History: No Reported History Medications and Allergies Home Medications Medication Instructions Recorded Confirmed Type Gabapentin [Neurontin] 300 mg PO BID 06/29/17 10/26/20 History Furosemide [Lasix] 20 mg PO DAILY 07/31/20 10/26/20 History Ergocalciferol [Vitamin D2 (1250 50,000 unit PO WEEKLY 09/11/20 10/26/20 History Mcg = 43220 Iu)] Anti Diarrhea 1 tab PO DIRECTED PRN 10/26/20 History Ascorbic Acid [Vitamin C] 1,000 mg PO DAILY 10/26/20 10/26/20 History Brimonidine Tartrate [Alphagan P 1 drops LEFT EYE TID 10/26/20 10/26/20 History 0.2% Ophth Soln] INSULIN LISPRO (humaLOG) [humaLOG] 6 - 12 unit SQ AC-TID 10/26/20 10/26/20 History Insulin Glargine [Lantus] 30 unit SQ HS 10/26/20 10/26/20 History Levothyroxine Sodium [Synthroid] 150 mcg PO DAILY 10/26/20 10/26/20 History prednisoLONE ACETATE 1% OPHTH 1 drop LEFT EYE QID 10/26/20 10/26/20 History [Pred Forte 1%] Allergies Allergy/AdvReac Type Severity Reaction Status Date / Time adhesive tape Allergy Rash/Hives Verified 10/26/20 11:08 Penicillins Allergy Rash/Hives Verified 10/26/20 11:08 tetanus and diphtheria Allergy Rash/Hives Verified 10/26/20 11:08 toxoids
[~2020-10-27 12:22] MED LIST changes: +ACETAMINOPHEN TAB 500 MG TAB PO PRN; +DEXAMETHASONE SOD PHOSPHATE 4 MG/ML 1 ML VIAL IV ONE; +GABAPENTIN 300 MG CAP PO PRN; +HEPARIN SODIUM,PORCINE 5,000 UNIT/ML 1 ML VIAL SQ PRN; -LIDOCAINE 1% 20 ML VIAL (10MG/ML) FOR IV START INTRADERMA PRN; +MELOXICAM 7.5 MG TAB PO PRN; +MIDAZOLAM 2 MG/2 ML VIAL IV PRN; +ONDANSETRON 4 MG/2 ML VIAL IVP ONE; +Pre Op ABX Message 1 EACH MISC MISCELLANE ONE; +SCOPOLAMINE 1.5MG/72HR PATCH TRANSDERM ONE
[2020-10-27] MEDS ORDERED: LACTATED RINGERS 1,000 ML IV ONE ×2 (14:00→19:01)
[2020-10-27] MEDS ORDERED: FAMOTIDINE 20 MG/2 ML VIAL IV ONE (14:00)
[2020-10-27 14:13] LABS: Glucose,Whole Blood 126 mg/dL (75-99)
[2020-10-27] MEDS ORDERED: MIDAZOLAM 2 MG/2 ML VIAL ONE (17:58)
[2020-10-27] MEDS ORDERED: GLYCOPYRROLATE 0.2 MG/ML 2 ML VIAL ONE (17:58)
[2020-10-27] MEDS ORDERED: fentaNYL (PF) 50 MCG/ML 2 ML AMP ONE (17:58)
[2020-10-27] MEDS ORDERED: NEOSTIGMINE 1 MG/ML 10 ML VIAL ONE (17:58)
[2020-10-27] MEDS ORDERED: ROCURONIUM 10 MG/ML (5 ML VIAL) IV ONE (17:58)
[2020-10-27] MEDS ORDERED: LIDOCAINE 1% INJ 10MG/ML (20 ML MDV) ONE (17:58)
[2020-10-27] MEDS ORDERED: PROPOFOL 10 MG/ML 20 ML VIAL IV ONE (17:58)
[2020-10-27] MEDS ORDERED: SUCCINYLCHOLINE CHLORIDE VIAL 200 MG/10 ML VIAL IV ONE (17:58)
[2020-10-27] MEDS ORDERED: SODIUM CHLORIDE 0.9% 50 ML with ceFAZolin 1,000 MG IV ONE ×2 (18:03)
[2020-10-27] MEDS ORDERED: LIDOCAINE 1%/EPI 1:200,000 MPF 10 ML VIAL SQ ONE (18:38)
--- NOTE | 2020-10-27 19:25 | P.OP ---
Date of Procedure: 10/27/20 Description of Procedure: SURGEON: OXANA CASTRO MD PREOPERATIVE DIAGNOSES: 1. Peritoneal adhesions with chronic diarrhea 2. History of multiple abdominal surgeries 3. Diabetes type 2, insulin-dependent with neuropathy 4. Hypertensive heart disease 5. Morbid obesity due to excess calories, BMI 46.6 6. Gastroesophageal reflux disease 7. Hypothyroidism POSTOPERATIVE DIAGNOSES: 1. History of peritoneal adhesions with chronic diarrhea 2. History of multiple abdominal surgeries 3. Diabetes type 2, insulin-dependent with neuropathy 4. Hypertensive heart disease 5. Morbid obesity due to excess calories, BMI 46.6 6. Gastroesophageal reflux disease 7. Hypothyroidism OPERATION: 1. Robotic-assisted da Cassandra Xi diagnostic laparoscopy ESTIMATED BLOOD LOSS: 5 mL. SPECIMENS REMOVED: None. COMPLICATIONS: None. OPERATIVE FINDINGS: 1. Redundant sigmoid colon 2. Redundant cecum 3. Intermittent dilated small bowel proximal jejunum and distal ileum without abdominal wall adhesions INDICATIONS: The patient is a 55-year-old female who presents with multiple abdominal surgeries and history of adhesions. Surgical intervention with diagnostic laparoscopy, lysis of adhesions were described. Informed consent was obtained. Robotic assisted laparoscopic approach was described. Benefits and risks of the procedure including but not limited to bleeding, infection was described. Informed consent was obtained. DESCRIPTION OF PROCEDURE: Patient was brought to the operating room, placed in supine position. After general induction, the abdomen had been prepped and draped in standard sterile fashion. The robotic da Cassandar XI system was primed. After a timeout protocol was performed, the patient had been prepped and draped in standard sterile fashion. The robot was docked along the left lateral abdomen. Please note prior to docking of the robot; however, a 5 mm 0 degrees laparoscopic trocar entry was performed along the left upper quadrant. Multiple abdominal scars were identified of the upper abdomen including right upper quadrant. Next, three 8 mm robotic ports were placed along the upper abdominal wall abdomen. Trochars were placed at least 10 to 15 cm away from the target anatomy of the pelvis. Instruments including graspers were interchanged by the nutritional assistant. I had sat at the console. No omental or small bowel adhesions to abdominal wall was found. The cecum was redundant. The sigmoid colon was redundant. The proximal small bowel and distal small bowel had intermittent dilation without adhesion bands. Hemostasis was checked. No large or small bowel obstruction was identified. The robot was undocked. All pneumoperitoneum and instruments were evacuated from the abdominal cavity. The incisions were reapproximated using 4-0 Monocryl in an interrupted subcuticular fashion. Please note along the trocar sites, local anesthetic was placed as a field block prior to insertion of all instruments. Exofin was applied to the skin. At the end of the procedure needle, sponge, and instrument count had been verified correct by the certified ophthalmic surgical assistant. The patient was transferred to postanesthesia care unit in stable condition. Plan - Discharge Summary Discharge Rx Participant: Yes New Discharge Prescriptions: New Ibuprofen [Motrin] 600 mg PO Q8HR PRN #30 tab PRN Reason: Pain Acetaminophen Tab [Tylenol Tab] 1,000 mg PO Q6HR PRN #30 tablet PRN Reason: Pain Continue Gabapentin [Neurontin] 300 mg PO BID Furosemide [Lasix] 20 mg PO DAILY Ergocalciferol [Vitamin D2 (1250 Mcg = 17282 Iu)] 50,000 unit PO WEEKLY Insulin Glargine [Lantus] 30 unit SQ HS Brimonidine Tartrate [Alphagan P 0.2% Ophth Soln] 1 drops LEFT EYE TID INSULIN LISPRO (humaLOG) [humaLOG] 6 - 12 unit SQ AC-TID prednisoLONE ACETATE 1% OPHTH [Pred Forte 1%] 1 drop LEFT EYE QID Levothyroxine Sodium [Synthroid] 150 mcg PO DAILY Ascorbic Acid [Vitamin C] 1,000 mg PO DAILY Anti Diarrhea 1 tab PO DIRECTED PRN PRN Reason: Diarrhea Discharge Medication List Gabapentin [Neurontin] 300 mg PO BID 06/29/17 [History] Furosemide [Lasix] 20 mg PO DAILY 07/31/20 [History] Ergocalciferol [Vitamin D2 (1250 Mcg = 89983 Iu)] 50,000 unit PO WEEKLY 09/11/20 [History] Anti Diarrhea 1 tab PO DIRECTED PRN 10/26/20 [History] Ascorbic Acid [Vitamin C] 1,000 mg PO DAILY 10/26/20 [History] Brimonidine Tartrate [Alphagan P 0.2% Ophth Soln] 1 drops LEFT EYE TID 10/26/20 [History] INSULIN LISPRO (humaLOG) [humaLOG] 6 - 12 unit SQ AC-TID 10/26/20 [History] Insulin Glargine [Lantus] 30 unit SQ HS 10/26/20 [History] Levothyroxine Sodium [Synthroid] 150 mcg PO DAILY 10/26/20 [History] prednisoLONE ACETATE 1% OPHTH [Pred Forte 1%] 1 drop LEFT EYE QID 10/26/20 [History] Acetaminophen Tab [Tylenol Tab] 1,000 mg PO Q6HR PRN #30 tablet 10/27/20 [Rx] Ibuprofen [Motrin] 600 mg PO Q8HR PRN #30 tab 10/27/20 [Rx] [facility]ment(s[facility] [place] [place] [facility] [place] [facility] Patient Instructions/Handouts: Lysis of Abdominal Adhesions (IP) Activity/Diet/Wound Care/Special Instructions: No lifting over 10 pounds in 2 weeks until November 10. May shower. No bath tub soaks for two weeks until November 10. Diet as tolerated. Use Tylenol and ibuprofen or Aleve scheduled for the next 24-48 hours for best pain relief. Use ice along incisions for today to prevent swelling. Using antibacterial soap. Discharge Disposition: HOME SELF-CARE
[2020-10-27] MEDS: HYDROmorphone 0.5 MG/0.5 ML SYRINGE IVP PRN ×2 (19:37→19:44)
[2020-10-27 19:54] LABS: Glucose,Whole Blood 256 mg/dL (75-99)
[2020-10-27] MEDS ORDERED: INSULIN ASPART (NovoLOG) 100 UNIT/ML VIAL SQ ONE (19:56)
[2020-10-27 22:23] VITALS: BP 126/73; PULSE 80; RESP 18; TEMP 98
[2020-10-31 06:50] LABS: Anabasine Urine <2.0 ng/mL (<2.0)
== END 2020-10-27 22:54 | disposition home or self-care (01) ==
LOC: OR 12:22 → 6PED 19:00 → OR 22:54
PROVIDERS: ATTEND Surgery Plastic and Reconstructive Surgery
DX: K66.0 Peritoneal adhesions (postprocedural) (postinfection) (principal); K52.9 Noninfective gastroenteritis and colitis, unspecified; E11.42 Type 2 diabetes mellitus with diabetic polyneuropathy; I11.9 Hypertensive heart disease without heart failure; R60.9 Edema, unspecified; K21.9 Gastro-esophageal reflux disease without esophagitis; E03.9 Hypothyroidism, unspecified; Z90.89 Acquired absence of other organs; F17.200 Nicotine dependence, unspecified, uncomplicated; E66.01 Morbid (severe) obesity due to excess calories; Z68.42 Body mass index [BMI] 45.0-49.9, adult; Z98.891 History of uterine scar from previous surgery; Z90.49 Acquired absence of other specified parts of digestive tract; Z90.710 Acquired absence of both cervix and uterus; Z98.890 Other specified postprocedural states; Z79.4 Long term (current) use of insulin; Z79.890 Hormone replacement therapy; Z79.899 Other long term (current) drug therapy; Z88.0 Allergy status to penicillin; Z88.7 Allergy status to serum and vaccine; Z91.09 Other allergy status, other than to drugs and biological substances
CPT/HCPCS: 44180; G0480; J2250; J0330; J1644; J1100; J2710; J0690 ×2; J2405; J2001; J3010; J2704; J1170; 80323

== ENCOUNTER → 2020-11-01 | Outpatient (CLI) | payer MEDICARE, OTHER ==
[2020-11-01 13:43] VITALS: BP 153/84; PULSE 71; RESP 16; TEMP 98.2; BMI 50.2
--- NOTE | 2020-11-01 14:22 | P.PN ---
Subjective Progress Note Date: 11/01/20 DATE OF SERVICE: 11/01/2020 CHIEF COMPLAINT: Morbid obesity HISTORY OF PRESENT ILLNESS: Cydney Gray is a 55-year-old female is status post lysis of adhesions, 10/27/2020. She is POD 5. No reports of abdominal pain. She has past history of adjustable gastric band with removal in the past. At height of 5 feet 5.25 inches, her ideal body weight is 149 pounds. She comes in 303 pounds from 298 pounds, 1 week ago. She has gained 5 pounds in 1 week. Her body mass index is up 50.2. She is 154 pounds overweight. PHYSICAL EXAM: VITAL SIGNS: Height 5 foot 5.25 inches, weight 303 pounds. BMI 50.2 Vital Signs Temp 98.2 F 11/01/20 13:41 Pulse 71 11/01/20 13:41 Resp 16 11/01/20 13:41 BP 153/84 11/01/20 13:41 Pulse Ox GENERAL: Well-developed in no acute distress. HEENT: No scleral icterus. Extraocular movements grossly intact. Hears conversational speech. No nasal drainage. NECK: Supple without lymphadenopathy. CHEST: Nonlabored respirations with equal bilateral excursions. CARDIOVASCULAR: Regular rate and regular rhythm. Distal 2+ pulses. ABDOMEN: Incisions are clean, dry and intact. MUSCULOSKELETAL: No clubbing, cyanosis. NEURO: No focal or lateralizing signs. Cranial nerves 2 through 12 grossly within normal limits. PSYCH: Appropriate affect. Alert and oriented to person, place and time. SKIN: Good skin turgor. Well perfused. LABS: Hgb low below 8.0. Urine nicotine returned elevated in less than 2 days. Hgb A1C elevated 9.5% ASSESSMENT: 1. Morbid obesity due to excess calories 2. Body mass index of 50.2 3. Osteoarthritis of the knees. 4. Osteoarthritis of the lower back. 5. Hypothyroidism. 6. Gastroesophageal reflux disease 7. Diabetes type 2 insulin-dependent, poorly controlled 8. Diabetic neuropathy 9. Gastric ulcers 10. Chronic diarrhea 11. Hiatal hernia 12. Vitamin A deficiency 13. Vitamin D deficiency 14. Tobacco abuse disorder. 15. Tobacco cessation education 16. Status post lysis of adhesions PLAN: 1. Overall, everything looks good to proceed from her surgery. 2. Agree with gastric bypass. 3. She is higher risk for complications for stricture, leaks, revisions due to prior surgery of adjustable gastric band. 4. Strict tobacco cessation described for risks of leak. 5. She has accepted these risks. 6. Recommend repeat Hgb A1c. Needs strict monitor post-op 7. Correction of Vitamin A deficiency 8. Correction of Vitamin D deficiency Objective - Vital Signs Vital signs: Vital Signs Temp 98.2 F 11/01/20 13:41 Pulse 71 11/01/20 13:41 Resp 16 11/01/20 13:41 BP 153/84 11/01/20 13:41 Pulse Ox Intake & Output 10/31/20 11/01/20 11/01/20 18:59 06:59 18:59 Weight 137.892 kg
== END ==
LOC: BARWHC3 13:00
PROVIDERS: ATTEND Surgery Plastic and Reconstructive Surgery
DX: E66.01 Morbid (severe) obesity due to excess calories (principal); M17.0 Bilateral primary osteoarthritis of knee; M47.9 Spondylosis, unspecified; E03.9 Hypothyroidism, unspecified; K21.9 Gastro-esophageal reflux disease without esophagitis; E11.40 Type 2 diabetes mellitus with diabetic neuropathy, unspecified; E11.65 Type 2 diabetes mellitus with hyperglycemia; K25.9 Gastric ulcer, unspecified as acute or chronic, without hemorrhage or perforation; K44.9 Diaphragmatic hernia without obstruction or gangrene; E55.9 Vitamin D deficiency, unspecified; E50.9 Vitamin A deficiency, unspecified; Z72.0 Tobacco use; Z98.890 Other specified postprocedural states; Z68.43 Body mass index [BMI] 50.0-59.9, adult; K52.9 Noninfective gastroenteritis and colitis, unspecified; Z79.4 Long term (current) use of insulin
CPT/HCPCS: 99211

== ENCOUNTER → 2020-11-06 | Outpatient (CLI) | payer MEDICARE, OTHER ==
[2020-11-06 12:03] VITALS: BMI 50.5
== END ==
LOC: BARWHC3 08:43
PROVIDERS: ATTEND Surgery Plastic and Reconstructive Surgery
DX: E66.01 Morbid (severe) obesity due to excess calories (principal); Z68.43 Body mass index [BMI] 50.0-59.9, adult; Z71.3 Dietary counseling and surveillance; E11.9 Type 2 diabetes mellitus without complications; E03.9 Hypothyroidism, unspecified; Z46.51 Encounter for fitting and adjustment of gastric lap band; Z98.84 Bariatric surgery status; Z79.4 Long term (current) use of insulin
CPT/HCPCS: 97804

== ENCOUNTER → 2020-12-20 | Outpatient (CLI) | payer MEDICARE, OTHER ==
[2020-12-20 22:58] LABS: Basophils # (A) 0.16 X 10*3/uL (0.00-0.10); Basophils % (A) 1.8 %; Eosinophils # (A) 0.36 X 10*3/uL (0.04-0.35); Eosinophils % (A) 4.1 %; HGB 13.5 g/dL (12.0-15.0); Lymphocytes # (A) 2.64 X 10*3/uL (0.90-5.00); Lymphocytes % (A) 30.1 %; MCH 28.7 pg (27.0-32.0); MCHC 32.1 g/dL (32.0-37.0); MCV 89.2 fL (80.0-97.0); Mean Platelet Volume 11.1 fL (9.5-12.2); Monocytes # (A) 0.52 X 10*3/uL (0.20-1.00); Monocytes % (A) 5.9 %; Neutrophils # (A) 5.06 X 10*3/uL (1.80-7.70); Neutrophils % (A) 57.9 %; Platelet Count 371 X 10*3/uL (140-440); RBC 4.71 X 10*6/uL (4.10-5.20); RDW 12.2 % (11.5-14.5); WBC 8.76 X 10*3/uL (4.50-10.00)
[2020-12-21 04:26] LABS: African American GFR (CKD) 74.5 (60.0-200.0); Albumin/Globulin Ratio 1.29 (1.60-3.17); Anion Gap 11.4 mmol/L (4.00-12.00); Calcium 9.3 mg/dL (8.7-10.3); Carbon Dioxide 23.6 mmol/L (21.6-31.8); Globulin 3.1 g/dL (1.6-3.3); Non-African American GFR(CKD) 64.3 (60.0-200.0); Total Bilirubin 0.3 mg/dL (0.2-1.2); Total Protein 7.1 g/dL (6.2-8.2)
== END | disposition home or self-care (01) ==
LOC: LABWHC1 15:54
PROVIDERS: ATTEND Surgery Plastic and Reconstructive Surgery
DX: Z01.812 Encounter for preprocedural laboratory examination (principal)
CPT/HCPCS: 36415; 80053; 85025; 86850; 86900; 86901

== ENCOUNTER → 2020-12-20 | Outpatient (CLI) | payer MEDICARE, OTHER ==
[2020-12-20 16:46] VITALS: BP 130/82; PULSE 72; RESP 18; TEMP 98.2; BMI 48.2
--- NOTE | 2020-12-20 17:03 | P.PN ---
Subjective Progress Note Date: 12/20/20 DATE OF SERVICE: 12/20/2020 CHIEF COMPLAINT: Morbid obesity HISTORY OF PRESENT ILLNESS: Cydney Gray is a 55-year-old female who comes in with lifelong morbid obesity. She has comorbidities including insulin- dependent uncontrolled diabetes type 2, osteoarthritis of knees and lower back and prior tobacco abuse. Doing bariatric assessment, patient is now tobacco use in remission. Additionally, blood sugar glucose is under control under 150s. She has prior history of adjustable gastric band with removal of multiple abdominal surgeries. She is status post lysis of adhesions, 10/27/2020. She presents here in evaluation for the gastric bypass. At height of 5 feet 5.25 inches, her ideal body weight is 149 pounds. Her highest weight is 303 pounds, BMI 50.1. She comes in 291 pounds from 303 pounds, 2 months ago. She has lost 12 pounds in 2 months. Her body mass index is 48.2. She is 142 pounds overweight. PAST MEDICAL HISTORY: 1. Morbid obesity due to excess calories 2. Body mass index of 49.4 3. Osteoarthritis of the knees. 4. Osteoarthritis of the lower back. 5. Hypothyroidism. 6. Gastroesophageal reflux disease 7. Diabetes type 2 insulin-dependent 8. Diabetic neuropathy 9. Gastric ulcers 10. Colon polyps PAST SURGICAL HISTORY: 1. Appendectomy 2. Hysterectomy 3. Cholecystectomy 4. Adjustable gastric band status post removal 5. Colonoscopy 6. Upper endoscopy 7. section 8. Lysis of adhesions HOME MEDICATIONS: Home Medications Medication Instructions Recorded Confirmed Gabapentin [Neurontin] 300 mg PO HS 06/29/17 02/12/19 Ascorbic Acid [Vitamin C] 500 mg PO DAILY 02/12/19 02/12/19 Insulin Glargine,Hum.rec.anlog 30 unit SQ HS 02/12/19 02/12/19 [Basaglar Emeliaikpen U-100] Insulin Lispro [Admelog] 6 - 12 unit SQ AC-TID PRN 02/12/19 02/12/19 Levothyroxine Sodium [Synthroid] 175 mcg PO DAILY 02/12/19 02/12/19 ALLERGIES: Allergies Allergy/AdvReac Type Severity Reaction Status Date / Time adhesive Allergy Rash/Hives Verified 02/12/19 09:51 adhesive tape Allergy Rash/Hives Verified 02/12/19 10:06 influenza virus vaccine, Allergy Rash/Hives Verified 02/12/19 09:51 specific Penicillins Allergy Rash/Hives Verified 02/12/19 09:51 tetanus and diphtheria Allergy Rash/Hives Verified 02/12/19 09:51 toxoids SUN Allergy Unknown Rash/Hives Uncoded 02/12/19 09:51 SOCIAL HISTORY: Past tobacco use. FAMILY HISTORY: No family history of ulcerative colitis disease or Crohn's disease. No lupus in the family. No reports of stomach or esophageal cancer. REVIEW OF ORGAN SYSTEMS: CONSTITUTIONAL: At height of 5 feet 5.25 inches, her ideal body weight is 149 pounds. Her highest weight is 303 pounds, BMI 50.1. HEENT: Denies any active troubles with vision or hearing. Has troubles with swallowing. ENDOCRINE: Has diabetes type II, uncontrolled. Has hypothyroidism. CARDIOVASCULAR: Past reports of palpitations or heart attacks or chest pain. RESPIRATORY: Has daytime somnolence. No asthma. GASTROINTESTINAL: Denies any bright red blood per rectum. Has diarrhea. No constipation. Has gastroesophageal reflux disease. MUSCULOSKELETAL: Has lower back pain and joint pain. Has osteoarthritis of the knees. NEURO: No headaches. No seizure disorders. PSYCH: No depression. No suicidal ideation. RHEUMATOLOGIC: No lupus. No rheumatoid arthritis. HEMATOLOGIC: Denies any abnormal bleeding or bruising. No personal history of DVTs. SKIN: No rash. No skin cancer. PHYSICAL EXAM: VITAL SIGNS: Height 5 foot 5.25 inches, weight 303 pounds. BMI 50.2 Vital Signs Temp 98.2 F 12/20/20 16:24 Pulse 72 12/20/20 16:24 Resp 18 12/20/20 16:24 BP 130/82 12/20/20 16:24 Pulse Ox GENERAL: Well-developed in no acute distress. HEENT: No scleral icterus. Extraocular movements grossly intact. Hears conversational speech. No nasal drainage. NECK: Supple without lymphadenopathy. CHEST: Nonlabored respirations with equal bilateral excursions. CARDIOVASCULAR: Regular rate and regular rhythm. Distal 2+ pulses. ABDOMEN: Soft, nontender. MUSCULOSKELETAL: No clubbing, cyanosis. NEURO: No focal or lateralizing signs. Cranial nerves 2 through 12 grossly within normal limits. PSYCH: Appropriate affect. Alert and oriented to person, place and time. SKIN: Good skin turgor. Well perfused. ASSESSMENT: 1. Morbid obesity due to excess calories 2. Body mass index of 50.2, initial 3. Osteoarthritis of the knees. 4. Osteoarthritis of the lower back. 5. Hypothyroidism. 6. Gastroesophageal reflux disease 7. Diabetes type 2 insulin-dependent, poorly controlled 8. Diabetic neuropathy 9. Gastric ulcers 10. Chronic diarrhea 11. Hiatal hernia 12. Vitamin A deficiency 13. Vitamin D deficiency 14. Tobacco abuse disorder in remission 15. Tobacco cessation education 16. Status post lysis of adhesions 17. History of adjustable gastric band status post removal PLAN: 1. Bariatric options between a sleeve and [id number] gastric bypass were reviewed in detail. The patient elected for gastric bypass. Robotic assisted approach described. 2. The [place] [facility] Data was also reviewed with benefits and risks as described. 3. An 8 page second-generation bariatric consent form was reviewed in detail including potential of bleeding, infection, leaks, adequate weight loss, nutritional deficiencies which the patient demonstrated understanding of the risks. 4. A 2 week high-protein low caloric 800 kcal diet described to address hepatomegaly. 5. Preoperative labs including complete metabolic panel and CBC with type and screen recommended. 6. DVT prophylaxis per [place] [facility]. 7. Antibiotic prophylaxis. 8. Inpatient hospitalization anticipated for more than 2 nights. 9. All questions and concerns were addressed with the patient. 10. She is at elevated risk for perioperative complications with any smoking including prior surgeries to her stomach with a past adjustable gastric band. She is elevated risk for leaks, stricture, postoperative complications. Patient is willing to accept these risks. 11. Overall, patient has expressed understanding of bariatric care including postoperative diet and commitment of lifestyle. Patient should benefit from surgical intervention for correction of her morbid obesity. 12. NSQIP risk calculator also reviewed with her. 13. Continued strict tobacco cessation and counts were reviewed over 3 minutes. Objective - Vital Signs Vital signs: Vital Signs Temp 98.2 F 12/20/20 16:24 Pulse 72 12/20/20 16:24 Resp 18 12/20/20 16:24 BP 130/82 12/20/20 16:24 Pulse Ox Intake & Output 12/19/20 12/20/20 12/20/20 18:59 06:59 18:59 Weight 132.449 kg
== END ==
LOC: BARWHC3 16:05
PROVIDERS: ATTEND Surgery Plastic and Reconstructive Surgery
DX: E66.01 Morbid (severe) obesity due to excess calories (principal); E03.9 Hypothyroidism, unspecified; E11.40 Type 2 diabetes mellitus with diabetic neuropathy, unspecified; E11.65 Type 2 diabetes mellitus with hyperglycemia; E55.9 Vitamin D deficiency, unspecified; K21.9 Gastro-esophageal reflux disease without esophagitis; K44.9 Diaphragmatic hernia without obstruction or gangrene; K52.9 Noninfective gastroenteritis and colitis, unspecified; M17.0 Bilateral primary osteoarthritis of knee; Z68.43 Body mass index [BMI] 50.0-59.9, adult; Z79.4 Long term (current) use of insulin; M47.9 Spondylosis, unspecified; K25.9 Gastric ulcer, unspecified as acute or chronic, without hemorrhage or perforation; E50.9 Vitamin A deficiency, unspecified; Z71.6 Tobacco abuse counseling; Z98.84 Bariatric surgery status; Z98.890 Other specified postprocedural states; Z79.899 Other long term (current) drug therapy; Z88.0 Allergy status to penicillin; Z91.048 Other nonmedicinal substance allergy status; Z88.7 Allergy status to serum and vaccine; Z87.891 Personal history of nicotine dependence
CPT/HCPCS: 99211

== ENCOUNTER 2020-12-25 09:36 | Inpatient (IN) | payer MEDICARE, OTHER ==
--- NOTE | 2020-12-25 07:59 | P.GSHP ---
History of Present Illness H&P Date: 12/25/20 CHIEF COMPLAINT: Morbid obesity HISTORY OF PRESENT ILLNESS: Cydney Gray is a 55-year-old female who comes in with lifelong morbid obesity. She is looking to the gastric bypass. As a result of her morbid obesity, she developed insulin-dependent diabetes type 2, diabetic neuropathy, osteoarthritis of the lower back, osteoarthritis in the knees. She is completed medical risk assessment. Her hemoglobin A1c has improved from over 10%. She has completed dietary surveillance and counseling. She presents for surgical intervention. At height of 5 feet 5.25 inches, her ideal body weight is 149 pounds. She was 298 pounds. Her body mass index is up 49.4. She is 149 pounds overweight. PAST MEDICAL HISTORY: 1. Morbid obesity due to excess calories 2. Body mass index of 49.4 3. Osteoarthritis of the knees. 4. Osteoarthritis of the lower back. 5. Hypothyroidism. 6. Gastroesophageal reflux disease 7. Diabetes type 2 insulin-dependent 8. Diabetic neuropathy 9. Gastric ulcers 10. Colon polyps PAST SURGICAL HISTORY: 1. Appendectomy 2. Hysterectomy 3. Cholecystectomy 4. Adjustable gastric band status post removal 5. Colonoscopy 6. Upper endoscopy 7. section HOME MEDICATIONS: See list ALLERGIES: See list SOCIAL HISTORY: Past tobacco use. FAMILY HISTORY: No family history of ulcerative colitis disease or Crohn's disease. No lupus in the family. No reports of stomach or esophageal cancer. REVIEW OF ORGAN SYSTEMS: CONSTITUTIONAL: At height of 5 feet 5.25 inches, her ideal body weight is 149 pounds. She comes in 298 pounds from 292 pounds, 3 months ago. She has gained 5 pounds in 3 months. Her body mass index is up 49.4. She is 149 pounds [facility]. HEENT: Denies any active troubles with vision or hearing. Has troubles with swallowing. ENDOCRINE: Has diabetes type II, uncontrolled. Has hypothyroidism. CARDIOVASCULAR: Past reports of palpitations or heart attacks or chest pain. RESPIRATORY: Has daytime somnolence. No asthma. GASTROINTESTINAL: Denies any bright red blood per rectum. Has diarrhea. No constipation. Has gastroesophageal reflux disease. MUSCULOSKELETAL: Has lower back pain and joint pain. Has osteoarthritis of the knees. NEURO: No headaches. No seizure disorders. PSYCH: No depression. No suicidal ideation. RHEUMATOLOGIC: No lupus. No rheumatoid arthritis. HEMATOLOGIC: Denies any abnormal bleeding or bruising. No personal history of DVTs. SKIN: No rash. No skin cancer. PHYSICAL EXAM: VITAL SIGNS: Height 5 foot 5.25 inches, weight 298 pounds. BMI 49.4 GENERAL: Well-developed in no acute distress. HEENT: No scleral icterus. Extraocular movements grossly intact. Hears conversational speech. No nasal drainage. NECK: Supple without lymphadenopathy. CHEST: Nonlabored respirations with equal bilateral excursions. CARDIOVASCULAR: Regular rate and regular rhythm. Distal 2+ pulses. ABDOMEN: Obese, soft, nontender, nondistended. MUSCULOSKELETAL: No clubbing, cyanosis. Gross strength 5/5 distal lower extremities. NEURO: No focal or lateralizing signs. Cranial nerves 2 through 12 grossly within normal limits. PSYCH: Appropriate affect. Alert and oriented to person, place and time. SKIN: Good skin turgor. Well perfused. ASSESSMENT: 1. Morbid obesity due to excess calories 2. Body mass index of 49.4 3. Osteoarthritis of the knees. 4. Osteoarthritis of the lower back. 5. Hypothyroidism. 6. Gastroesophageal reflux disease 7. Diabetes type 2 insulin-dependent, poorly controlled 8. Diabetic neuropathy 9. Gastric ulcers 10. Chronic diarrhea 11. Hiatal hernia 12. Vitamin A deficiency 13. Vitamin D deficiency 14. Tobacco abuse disorder. 15. Tobacco cessation education PLAN: 1. Bariatric options between a sleeve, band and a Jimena-en-Y gastric bypass were reviewed in detail. The patient elected for gastric bypass. Robotic assisted approach described. 2. The [place] [facility] Data was also reviewed with benefits and risks as described. 3. An 8 page second-generation bariatric consent form was reviewed in detail including potential of bleeding, infection, leaks, adequate weight loss, nutritional deficiencies which the patient demonstrated understanding of the risks. 4. A 2 week high-protein low caloric 800 kcal diet described to address hepatomegaly. 5. Preoperative labs including complete metabolic panel and CBC with type and screen recommended. 6. DVT prophylaxis per [place] [facility]. 7. Antibiotic prophylaxis. 8. Inpatient hospitalization anticipated for more than 2 nights. 9. All questions and concerns were addressed with the patient. 10. She is at elevated risk for perioperative complications for any additional surgeries that may occur within 30 days of her index operation as she is due for surgery of the left shoulder. 11. Overall, patient has expressed understanding of bariatric care including postoperative diet and commitment of lifestyle. Patient should benefit from surgical intervention for correction of her morbid obesity. Past Medical History Past Medical History: Diabetes Mellitus, GERD/Reflux, Thyroid Disorder Additional Past Medical History / Comment(s): chronic diarrhea, neuropathy bilateral feet, History of Any Multi-Drug Resistant Organisms: None Reported Past Surgical History: Appendectomy, Bariatric Surgery, Section, Cholecystectomy, Hysterectomy Additional Past Surgical History / Comment(s): LAP BAND INSERTION 2005 (REMOVed 2011 d/t prolapse) Cervical Cage surgery C3-5 at [facility] 2014, left eye scar tissue removed x 3(last November), laparoscopy 10/2020 Past Anesthesia/Blood Transfusion Reactions: Previous Problems w/ Anesthesia Additional Past Anesthesia/Blood Transfusion Reaction / Comment(s): "OVERDOSED ON MORPHINE CHICKEN FANCIER AFTER HYSTERECTOMY SURGERY, LED TO CARDIAC ARREST." Smoking Status: Former smoker - Past Family History Mother Family Medical History: No Reported History Medications and Allergies Home Medications Medication Instructions Recorded Confirmed Type Gabapentin [Neurontin] 300 mg PO BID 06/29/17 12/20/20 History Ergocalciferol [Vitamin D2 (1250 50,000 unit PO MO 09/11/20 12/20/20 History Mcg = 52262 Iu)] Ascorbic Acid [Vitamin C] 1,000 mg PO DAILY 10/26/20 12/20/20 History INSULIN LISPRO (humaLOG) [humaLOG] 3 - 5 unit SQ AC-TID PRN 10/26/20 12/20/20 History Insulin Glargine [Lantus] 20 unit SQ HS 10/26/20 12/20/20 History Levothyroxine Sodium [Synthroid] 150 mcg PO DAILY 10/26/20 12/20/20 History prednisoLONE ACETATE 1% OPHTH 1 drop LEFT EYE QID 10/26/20 12/20/20 History [Pred Forte 1%] Atropine Ophth Soln 1% 5Ml [Isopto 1 drops LEFT EYE BID 12/20/20 12/20/20 History Atropine 1% 5Ml] Famotidine [Pepcid] 20 mg PO BID 12/20/20 12/20/20 History Allergies Allergy/AdvReac Type Severity Reaction Status Date / Time adhesive tape Allergy Rash/Hives Verified 12/20/20 11:46 Penicillins Allergy Rash/Hives Verified 12/20/20 11:46 tetanus and diphtheria Allergy Rash/Hives Verified 12/20/20 11:46 toxoids "surgical glue" Allergy irritation Uncoded 12/20/20 12:03 around incision
[~2020-12-25 09:36] MED LIST changes: +CHLORHEXIDINE GLUCONATE 15 ML CUP MUCOUS MEM PRN; +ENOXAPARIN 40 MG/0.4 ML SYRINGE SQ PRN; -HEPARIN SODIUM,PORCINE 5,000 UNIT/ML 1 ML VIAL SQ PRN; -LACTATED RINGERS 1,000 ML IV SCH; -MELOXICAM 7.5 MG TAB PO PRN; -MIDAZOLAM 2 MG/2 ML VIAL IV PRN; +PANTOPRAZOLE 40 MG/10 ML VIAL IVP PRN; -Pre Op ABX Message 1 EACH MISC MISCELLANE ONE; +SCOPOLAMINE 1.5MG/72HR PATCH TRANSDERM PRN; +ceFAZolin 3 GM in SODIUM CHLORIDE 0.9% 100 ML IVPB PRN
[2020-12-25] MEDS ORDERED: LIDOCAINE 1% (10MG/ML) FOR IV START INTRADERMA ONE (10:15)
[2020-12-25] MEDS: LACTATED RINGERS 1,000 ML IV SCH (10:15)
[2020-12-25 10:30] LABS: Glucose,Whole Blood 174 mg/dL (75-99)
[2020-12-25] MEDS ORDERED: MIDAZOLAM 2 MG/2 ML VIAL ONE (11:32)
[2020-12-25] MEDS ORDERED: SUCCINYLCHOLINE CHLORIDE VIAL 200 MG/10 ML VIAL IV ONE (11:32)
[2020-12-25] MEDS ORDERED: KETOROLAC 15 MG/ML 1 ML VIAL ONE (11:32)
[2020-12-25] MEDS ORDERED: PROPOFOL 10 MG/ML 20 ML VIAL IV ONE (11:32)
[2020-12-25] MEDS ORDERED: DEXAMETHASONE SOD PHOSPHATE 10 MG/ML 1 ML VIAL ONE (11:32)
[2020-12-25] MEDS ORDERED: diphenhydrAMINE 50 MG/ML 1 ML VIAL ONE (11:32)
[2020-12-25] MEDS ORDERED: NEOSTIGMINE 1 MG/ML 10 ML VIAL ONE (11:32)
[2020-12-25] MEDS ORDERED: ROCURONIUM 10 MG/ML (5 ML VIAL) IV ONE (11:32)
[2020-12-25] MEDS ORDERED: fentaNYL (PF) 50 MCG/ML 2 ML AMP ONE (11:32)
[2020-12-25] MEDS ORDERED: LIDOCAINE 1% INJ 10MG/ML (20 ML MDV) ONE (11:32)
[2020-12-25] MEDS ORDERED: GLYCOPYRROLATE 0.2 MG/ML 2 ML VIAL ONE (11:32)
[2020-12-25] MEDS ORDERED: BUPIVACAIN-EPI 0.5%-1:200,000 30 ML VIAL SQ ONE ×2 (11:59→12:05)
[2020-12-25] MEDS ORDERED: LACTATED RINGERS 1,000 ML IV ONE ×2 (12:44)
[2020-12-25] MEDS ORDERED: NALOXONE 0.4 MG/ML 1 ML VIAL IV PRN (14:41)
[2020-12-25] MEDS ORDERED: diphenhydrAMINE 50 MG/ML 1 ML VIAL IVP PRN (14:43)
[2020-12-25] MEDS ORDERED: HYDROmorphone 1 MG/ML 1 ML SYRINGE IVP PRN (14:43)
[2020-12-25 14:51] LABS: Glucose,Whole Blood 224 mg/dL (75-99)
--- NOTE | 2020-12-25 14:51 | P.OP ---
Date of Procedure: 12/25/20 Description of Procedure: SURGEON: OXANA CASTRO MD PREOPERATIVE DIAGNOSES: 1. Morbid obesity due to excess calories 2. Body mass index of 49.4 3. Osteoarthritis of the knees. 4. Osteoarthritis of the lower back. 5. Hypothyroidism. 6. Gastroesophageal reflux disease 7. Diabetes type 2 insulin-dependent, poorly controlled 8. Diabetic neuropathy 9. Gastric ulcers 10. Chronic diarrhea 11. Hiatal hernia 12. Vitamin A deficiency 13. Vitamin D deficiency 14. Tobacco abuse disorder, in remission 15. Prior history of adjustable gastric band POSTOPERATIVE DIAGNOSES: 1. Morbid obesity due to excess calories 2. Body mass index of 49.4 3. Osteoarthritis of the knees. 4. Osteoarthritis of the lower back. 5. Hypothyroidism. 6. Gastroesophageal reflux disease 7. Diabetes type 2 insulin-dependent, poorly controlled 8. Diabetic neuropathy 9. Gastric ulcers 10. Chronic diarrhea 11. Hiatal hernia 12. Vitamin A deficiency 13. Vitamin D deficiency 14. Tobacco abuse disorder, in remission 15. Prior history of adjustable gastric band OPERATION: 1. Robotic assisted da Cassandra Xi laparoscopic Minoo-en-Y gastric bypass, 100 cm antecolic antegastric Minoo limb, with 25 mm EEA. 2. Intraoperative esophagogastrojejunoscopy. ANESTHESIA: GETA and local ESTIMATED BLOOD LOSS: 5 mL SPECIMENS REMOVED: None. COMPLICATIONS: NONE. Operative Findings: 1. Biliopancreatic limb 60 cm 2. Bypass performed using 100 cm minoo limb secondary to avoid increased tension at 150 cm. 3. Jejunojejunostomy and Mac defect obliterated by intra-abdominal fat 4. Leak test negative with gastrojejunal anastomosis patent and hemostatic. 5. Reinforcement sutures were placed along the gastrojejunal anastomosis at 9:00 and 3:00, and 12:00 6. No fatty liver disease INDICATIONS: Cydney Gray is a 55-year-old female who comes in with lifelong morbid obesity. She is looking to the gastric bypass. As a result of her morbid obesity, she developed insulin-dependent diabetes type 2, diabetic neuropathy, osteoarthritis of the lower back, osteoarthritis in the knees. She presents for surgical intervention. At height of 5 feet 5.25 inches, her ideal body weight is 149 pounds. She was 298 pounds. Her body mass index is up 49.4. She is 149 pounds overweight. A second-generation bariatric consent form was described in detail including the possibility of protein malnutrition, leaks, gastrojejunal stricture, venous thrombosis, need for further surgery for which she demonstrated understanding. Benefits and risks of the procedure were described at length. Informed consent was obtained. DESCRIPTION: The patient was brought into the operating room theater. She was p laced supine. She had received Lovenox subcutaneously for DVT prophylaxis. Additionally she Peridex oral solution as an oral decontaminant was placed per anesthesia. After general induction, the abdomen was prepped and draped in standard sterile fashion. Ioban draping was placed along the abdomen. Lynch catheter was placed A robotic Jamiii Xi system was prepped and primed. Incisions were proposed at 15 cm from the xiphoid. Proposed port sites were marked with indelible marker along the anterior axillary line bilaterally, mid clavicular line bilaterally with each port marked 10 cm from each other. The robotic stapler port was marked for the right midclavicular line including along the left midclavicular line. A 5 mm 0 degrees laparoscopic trocar entry was performed along the left upper quadrant. The abdomen was insufflated to 15 mmHg pressure, which she tolerated well. Diagnostic laparoscopy demonstrated no injury to bowel, viscera, or mesentery. The liver was consistent with her 2-week protein diet. An 8 mm camera port was placed left lateral to the umbilicus at the epigastrium, 15 cm distal to the xiphoid. Next, 12-mm robot stapler port was placed along the right mid abdomen. An 12 mm port was exchanged along the left upper quadrant. An 8 mm port was placed on the left lateral abdominal wall under direct visualization Please note that the ports were placed 18 to 20 cm away from the target anatomy of the stomach. Care was taken to check that each robotic arm was safely away from collision with the bed or the patient. At the epigastrium, a medium sized Walt liver retractor was placed under direct visualization with the Iron Test Preparation Tutor placed under the right shoulder of the patient. The patient was repositioned in reverse Trendelenburg position at 21-degrees after lowering the bed. The robot was docked over the patient. Using grasper for arm 3, a grasper for arm 1, including vessel sealer for arm 4, the robotic system was docked and primed as described. Instruments were interchanged by the teaching assistant including endoscissors, the needle delivery motorcycle driver, and stapler. I had sat at the console. Next, the transverse mesocolon was reflected into the upper abdomen after dividing the mesentery and preparing for the jejunojejunostomy portion of the case. The ligament of Treitz was identified and measured 60 cm antegrade and marked using 3-0 Silk. The jejunum was divided at the 60 cm point using 60-mm white loads above the suture measurement. The biliopancreatic limb was held in place. The Minoo limb was measured 100 cm in an antegrade fashion to avoid tension along the proposed gastrojejunal anastomosis. At 100 cm along the anti-mesenteric border of the Minoo limb, a jejunojejunostomy was proposed whereby enterotomies were created along the biliopancreatic limb including the Minoo limb using a Bovie cautery. A stay suture of 3-0 Slik was placed to align and create the anastomosis. The enterotomies along the anti- mesenteric borders were created followed by unidirectional fire from the patient's right side using 60 mm blue loads Smart technology robotic stapler. The jejunojejunostomy was found to be hemostatic. The enterotomy was closed after horizontal mattress stitch of 3-0 silk used to elevate the enterotomy followed by closure with the robotic stapler blue load. The jejunal limb was temporarily tacked along the left upper quadrant. Attention was now brought to the creation of the gastrojejunostomy. Along the lesser curvature of the stomach, dissection was made along the retrogastric space to allow first firing of the robotic staple. Green loads of 60 mm staplers were used to divide the stomach to create the gastric pouch. The patient was then prepared for placement of a Orvil. The patient was Mallampati 2. A 25-mm Orvil was selected for placement by the nurse assistant director of admissions. The Orvil tubing was placed anterior to the staple line of the gastric pouch and brought out through the left inferior lateral port. I re-scrubbed into the case. The robotic arms were temporarily undocked. The Orvil was then carefully and successfully navigated with the help of the nurse assistant director of admissions into the gastric pouch. The sutures were identified and divided. The tubing was from the 25 mm anvil. As the Orvil had been placed, the blind jejunal limb was brought proximally into the upper abdomen. No torsion was found upon the Minoo limb. Mild tension was identified as the limb was brought along the upper abdomen. The blind jejunal limb was previously opened using endo-scissors with cautery. The 25-mm EEA stapler was brought through the left anterior lateral port site from the left side. The EEA stapler was brought through the open jejunal limb and its needle was deployed at the antimesenteric border where the anvil were mated for approximately 1 minute upon firing. The stapler was removed after irrigating the shaft of the instrument with warm normal saline. Donuts were found to be intact and on both sides. The da Cassandra Xi robot arms were then re-docked. I sat at the console. The open jejunal limb defect was closed using 60 mm blue loads after releasing any tension from the blind jejunal limb. Care was taken to avoid any long blind limb to avoid candycane syndrome. Reinforcement sutures were placed along the gastrojejunal anastomosis and placed along the 9:00 and 3 o'clock position using 3-0 Vicryl. The jejunojejunostomy mesenteric defect and Mac's defect were closed about intra-abdominal fat. I then went to the head of the bed to perform the esophagogastrojejunoscopy and a leak test. An Olympus gastroscope was passed alongthe posterior oropharynx which was unremarkable for any injury to the vocal cords. The scope was passed down to the proximal portion of the pouch, whereby no active bleeding was encountered. Excellent visualization of the gastrojejunostomy anastomosis, including the Minoo limb was encountered with endoscopic image obtained. The anastomosis was found to be patent. The gastrointestinal tract was desufflated. No evidence of intraoperative leak was encountered as the gastric pouch and anastomosis were submerged under normal saline solution. The robot was then undocked. I then went back to the bedside of the patient, whereby with coordinated effort of the teaching assistant, irrigation was aspirated from the upper abdominal cavity. Tisseel was placed circumferentially over the anastomosis of the gastrojejunostomy. The fascial defect of the EEA stapler was closed using Leonides Edgar and 0 Vicryl. All instruments and pneumoperitoneum were evacuated from the abdominal cavity. The port correlating with the EEA stapler device was cleansed with normal saline solution and hydrogen peroxide. The rest of incisions were reapproximated using 4-0 Monocryl in an interrupted subcuticular fashion. Local anesthetic was infiltrated along the skin for postop analgesia. OptiFoam dressing was placed along all incisions. At the end of the procedure, needle, sponge and instrument count had been verified correct by the tractor technician. The patient had tolerated the procedure well and was extubated and taken to the postanesthesia unit in stable condition. Intraoperative findings were described to the patient's family who were very pleased with the level of care.
[2020-12-25] MEDS ORDERED: INSULIN ASPART (NovoLOG) 100 UNIT/ML VIAL SQ ONE (14:55)
[2020-12-25] MEDS: HYDROmorphone 0.5 MG/0.5 ML SYRINGE IVP PRN ×2 (15:13→15:27)
[2020-12-25] MEDS ORDERED: SODIUM CHLORIDE 0.9% 1,000 ML IV ONE ×2 (15:38)
[2020-12-25] MEDS: ACETAMINOPHEN IV (For NPO) 1,000 MG in EMPTY BAG 1 BAG IVPB SCH ×2 (16:10→17:04)
[2020-12-25] MEDS: ALBUTEROL NEBULIZED 2.5 MG/3 ML INHALATION SCH ×2 (16:14→19:59)
[2020-12-25 16:34] LABS: Glucose,Whole Blood 258 mg/dL (75-99)
[2020-12-25] MEDS: prednisoLONE ACETATE 1% OPHTH DROPS 5 ML BTL LEFT EYE SCH ×3 (16:49→20:59)
[2020-12-25] MEDS: ONDANSETRON 4 MG/2 ML VIAL IVP SCH (17:04)
[2020-12-25] MEDS: HYOSCYAMINE ORAL DROPS 1.875 MG/15 ML BOTTLE PO SCH (17:05)
[2020-12-25] MEDS ORDERED: INSULIN ASPART (NovoLOG) 100 UNIT/ML VIAL SQ SCH (17:30)
[2020-12-25] MEDS: INSULIN ASPART (NovoLOG) 100 UNIT/ML VIAL SQ SCH ×2 (17:44→21:07)
[2020-12-25] MEDS ORDERED: DEXAMETHASONE SOD PHOSPHATE 4 MG/ML 1 ML VIAL IV SCH (18:00)
[2020-12-25] MEDS: SIMETHICONE 40 MG/0.6 ML DROPS 2,000 MG/30 ML BOTTLE PO SCH (19:14)
[2020-12-25] MEDS: 0.9% NACL WITH KCL 20 MEQ/L 1,000 ML IV SCH ×2 (20:58→20:59)
[2020-12-25] MEDS: GABAPENTIN 300 MG CAP PO SCH (21:00)
[2020-12-25] MEDS: ceFAZolin 3 GM in SODIUM CHLORIDE 0.9% 100 ML IVPB SCH (21:29)
[2020-12-25] MEDS: ATROPINE OPHTH SOLN 1% 5ML BTL LEFT EYE SCH (21:47)
[2020-12-26 00:01] LABS: Glucose,Whole Blood 295 mg/dL (75-99)
[2020-12-26] MEDS: ONDANSETRON 4 MG/2 ML VIAL IVP SCH ×3 (00:06→13:01)
[2020-12-26] MEDS: HYOSCYAMINE ORAL DROPS 1.875 MG/15 ML BOTTLE PO SCH ×3 (00:06→13:01)
[2020-12-26] MEDS: ACETAMINOPHEN IV (For NPO) 1,000 MG in EMPTY BAG 1 BAG IVPB SCH ×2 (00:07→06:19)
[2020-12-26] MEDS: SIMETHICONE 40 MG/0.6 ML DROPS 2,000 MG/30 ML BOTTLE PO SCH ×3 (00:07→13:01)
[2020-12-26] MEDS: INSULIN ASPART (NovoLOG) 100 UNIT/ML VIAL SQ SCH ×7 (00:08→17:41)
[2020-12-26] MEDS: 0.9% NACL WITH KCL 20 MEQ/L 1,000 ML IV SCH ×3 (00:29→08:58)
[2020-12-26] MEDS: ceFAZolin 3 GM in SODIUM CHLORIDE 0.9% 100 ML IVPB SCH (03:59)
[2020-12-26 06:07] LABS: Glucose,Whole Blood 300 mg/dL (75-99)
[2020-12-26] MEDS: LACTATED RINGERS 1,000 ML IV SCH (06:18)
[2020-12-26] MEDS: prednisoLONE ACETATE 1% OPHTH DROPS 5 ML BTL LEFT EYE SCH ×2 (08:56→14:56)
[2020-12-26] MEDS: GABAPENTIN 300 MG CAP PO SCH (08:56)
[2020-12-26] MEDS: ATROPINE OPHTH SOLN 1% 5ML BTL LEFT EYE SCH (08:56)
[2020-12-26] MEDS ORDERED: PANTOPRAZOLE 40 MG/10 ML VIAL IV SCH (09:00)
[2020-12-26] MEDS ORDERED: ENOXAPARIN 40 MG/0.4 ML SYRINGE SQ SCH (09:00)
[2020-12-26] MEDS: ALBUTEROL NEBULIZED 2.5 MG/3 ML INHALATION SCH ×3 (09:10→15:50)
[2020-12-26 10:21] LABS: HCT 35.7 % (37.2-46.3); HGB 11.8 g/dL (12.0-15.0); MCH 29.7 pg (27.0-32.0); MCHC 33.1 g/dL (32.0-37.0); MCV 89.9 fL (80.0-97.0); Mean Platelet Volume 11.1 fL (9.5-12.2); Platelet Count 370 X 10*3/uL (140-440); RBC 3.97 X 10*6/uL (4.10-5.20); RDW 12.5 % (11.5-14.5); WBC 23.16 X 10*3/uL (4.50-10.00)
[2020-12-26 10:55] LABS: Basophils # (A) 0.03 X 10*3/uL (0.00-0.10); Basophils % (A) 0.1 %; Eosinophils # (A) 0 X 10*3/uL (0.04-0.35); Eosinophils % (A) 0 %; Lymphocytes # (A) 1.04 X 10*3/uL (0.90-5.00); Lymphocytes % (A) 4.5 %; Monocytes % (A) 5.2 %; Neutrophils # (A) 20.78 X 10*3/uL (1.80-7.70); Neutrophils % (A) 89.7 %
[2020-12-26] MEDS ORDERED: SODIUM CHLORIDE 0.9% 2,000 ML IV ONE (10:56)
[2020-12-26 11:10] VITALS: BMI 45.1
--- NOTE | 2020-12-26 14:06 | P.PN ---
Subjective Progress Note Date: 12/26/20 CHIEF COMPLAINT: Morbid obesity HISTORY OF PRESENT ILLNESS: Cydney Gray is a 55-year-old female status post gastric bypass following conversion from adjustable gastric band. She is doing well. No reports of vomiting. No fevers or chills. She reports mild nausea. She also reports of blood sugars were elevated over 200s. REVIEW OF ORGAN SYSTEMS: No fevers or chills. No chest pain. No shortness of breath. PHYSICAL EXAM: VITAL SIGNS: Height 5 foot 5.25 inches, weight 298 pounds. BMI 49.4. Reviewed. GENERAL: Well-developed in no acute distress. HEENT: No scleral icterus. Extraocular movements grossly intact. Hears conversational speech. No nasal drainage. CHEST: Nonlabored respirations with equal bilateral excursions. CARDIOVASCULAR: Regular rate and regular rhythm. Distal 2+ pulses. ABDOMEN: Dressing clean dry and intact. MUSCULOSKELETAL: No clubbing, cyanosis. Gross strength 5/5 distal lower extremities. NEURO: No focal or lateralizing signs. Cranial nerves 2 through 12 grossly within normal limits. PSYCH: Appropriate affect. Alert and oriented to person, place and time. SKIN: Good skin turgor. Well perfused. ASSESSMENT: 1. Morbid obesity due to excess calories 2. Body mass index of 49.4 3. Osteoarthritis of the knees. 4. Osteoarthritis of the lower back. 5. Hypothyroidism. 6. Gastroesophageal reflux disease 7. Diabetes type 2 insulin-dependent, poorly controlled 8. Diabetic neuropathy 9. Gastric ulcers 10. Chronic diarrhea 11. Hiatal hernia 12. Vitamin A deficiency 13. Vitamin D deficiency 14. Tobacco abuse disorder. 15. Tobacco cessation education 16. Status post Gastric bypass PLAN: 1. IV hydration 2 L normal saline described to address nausea. 2. May start bariatric clears. 3. Discontinue all steroids for blood sugar glucose. 4. Resume home insulin. 5. Reevaluate for discharge this afternoon. Objective - Vital Signs Vital signs: Vital Signs Temp 98.3 F 12/26/20 08:33 Pulse 92 12/26/20 12:40 Resp 19 12/26/20 08:33 BP 133/70 12/26/20 08:33 Pulse Ox 96 12/26/20 08:33 Intake & Output 12/25/20 12/26/20 12/26/20 18:59 06:59 18:59 Intake Total 2150 Output Total 160 1989 Weight 130.8 kg 130.8 kg Intake: IV 2149 Output: Urine 155 Estimated Blood Loss 5 Other: # Voids 1 2 - Labs CBC & Chem 7: 12/26/20 05:52 Labs: Abnormal Lab Results - Last 24 Hours (Table) 12/25/20 12/25/20 12/25/20 Range/Units 14:48 16:33 23:59 WBC (4.50-10.00) X 10*3/uL RBC (4.10-5.20) X 10*6/uL Hgb (12.0-15.0) g/dL Hct (37.2-46.3) % Immature Gran # (0.00-0.04) X 10*3/uL Neutrophils # (1.80-7.70) X 10*3/uL Monocytes # (0.20-1.00) X 10*3/uL Eosinophils # (0.04-0.35) X 10*3/uL POC Glucose (mg/dL) 224 H 258 H 295 H (75-99) mg/dL 12/26/20 12/26/20 Range/Units 05:52 06:06 WBC 23.16 H (4.50-10.00) X 10*3/uL RBC 3.97 L (4.10-5.20) X 10*6/uL Hgb 11.8 L (12.0-15.0) g/dL Hct 35.7 L (37.2-46.3) % Immature Gran # 0.11 H (0.00-0.04) X 10*3/uL Neutrophils # 20.78 H (1.80-7.70) X 10*3/uL Monocytes # 1.20 H (0.20-1.00) X 10*3/uL Eosinophils # 0 L (0.04-0.35) X 10*3/uL POC Glucose (mg/dL) 300 H (75-99) mg/dL
[2020-12-26 14:37] VITALS: PULSE 94
[2020-12-26 14:58] VITALS: BP 131/79; RESP 17; TEMP 98.2
[2020-12-26 15:49] LABS: African American GFR (CKD) 66.4 (60.0-200.0); Anion Gap 12.9 mmol/L (4.00-12.00); Calcium 7.9 mg/dL (8.7-10.3); Carbon Dioxide 21.1 mmol/L (21.6-31.8); Magnesium 1.6 mg/dL (1.5-2.4); Non-African American GFR(CKD) 57.3 (60.0-200.0); Potassium 5.7 mmol/L (3.5-5.5)
[2020-12-26 17:09] LABS: Glucose,Whole Blood 322 mg/dL (75-99)
[2020-12-26] MEDS ORDERED: INSULIN DETEMIR (LEVEMIR) 100 UNIT/ML SYR SQ SCH (21:00)
[2020-12-27] MEDS ORDERED: bisacodyL 5 MG TABLET.DR PO PRN (08:00)
== END 2020-12-26 17:30 | disposition home or self-care (01) | DRG 621 ==
LOC: 2ORMAIN 09:36 → 4SSUR 15:37
PROVIDERS: ADMIT Surgery Plastic and Reconstructive Surgery; ATTEND Surgery Plastic and Reconstructive Surgery
PROC: 0DJ08ZZ Inspection of Upper Intestinal Tract, Via Natural or Artificial Opening Endoscopic (ICD-10-PCS; principal; 2020-12-25 10:55)
PROC: 0D164ZA Bypass Stomach to Jejunum, Percutaneous Endoscopic Approach (ICD-10-PCS; principal; 2020-12-25 10:55)
PROC: 8E0W4CZ Robotic Assisted Procedure of Trunk Region, Percutaneous Endoscopic Approach (ICD-10-PCS; principal; 2020-12-25 10:55)
DX: E66.01 Morbid (severe) obesity due to excess calories (principal); Z68.42 Body mass index [BMI] 45.0-49.9, adult; E11.40 Type 2 diabetes mellitus with diabetic neuropathy, unspecified; Z79.4 Long term (current) use of insulin; E03.9 Hypothyroidism, unspecified; Z20.822 Contact with and (suspected) exposure to COVID-19; M17.0 Bilateral primary osteoarthritis of knee; M47.9 Spondylosis, unspecified; K44.9 Diaphragmatic hernia without obstruction or gangrene; E50.9 Vitamin A deficiency, unspecified; E55.9 Vitamin D deficiency, unspecified; K21.9 Gastro-esophageal reflux disease without esophagitis; K52.9 Noninfective gastroenteritis and colitis, unspecified; Z79.890 Hormone replacement therapy; Z79.899 Other long term (current) drug therapy; Z87.891 Personal history of nicotine dependence; Z87.11 Personal history of peptic ulcer disease; Z86.010 Personal history of colon polyps; Z90.710 Acquired absence of both cervix and uterus; Z90.49 Acquired absence of other specified parts of digestive tract; Z87.19 Personal history of other diseases of the digestive system; Z87.42 Personal history of other diseases of the female genital tract; Z98.1 Arthrodesis status; Z98.891 History of uterine scar from previous surgery; Z98.890 Other specified postprocedural states; Z71.3 Dietary counseling and surveillance
CPT/HCPCS: 80051; 82310; 82565; 83735; 84100; 84520; 85025; 86850; 86900; 86901; 87635; 94640; 94760; 94762

== ENCOUNTER 2020-12-27 02:34 | Emergency (ER) | payer MEDICARE, OTHER ==
[2020-12-27 02:42] VITALS: RESP 18; TEMP 98
[2020-12-27] MEDS ORDERED: SODIUM CHLORIDE 0.9% 1,000 ML IV STA (03:01)
[2020-12-27] MEDS ORDERED: ONDANSETRON 4 MG/2 ML VIAL IVP STA (03:01)
[2020-12-27] MEDS ORDERED: MAG HYDROX/AL HYDROX/SIMETH 30 ML, HYOSCYAMINE ELIXIR 10 ML, LIDOCAINE VISCOUS 2% 10 ML PO STA ×3 (03:18)
--- NOTE | 2020-12-27 03:19 | ED ---
Nausea/Vomiting/Diarrhea HPI - General Chief complaint: Nausea/Vomiting/Diarrhea Stated complaint: Post-Op Vomiting Time Seen by Provider: 12/27/20 03:01 Source: patient Mode of arrival: ambulatory Limitations: no limitations - History of Present Illness Initial comments: This patient is a 55-year-old woman who presents to be evaluated for nausea, vomiting, and epigastric and substernal burning that she states is like heartburn. The patient had recent gastric bypass surgery with Dr. Spence. She was discharged from the hospital yesterday at 6 PM, and then the symptoms started a few hours after that. She has had a total of 3 episodes of vomiting with small amount of coffee grounds. Patient is not experiencing any new abdominal pain. No other chest pain or dyspnea. No leg pain or swelling. No change in bowel movements or urination. MD complaint: nausea, vomiting Onset/Timin -: hour(s) Description of Vomiting: coffee grounds Associated Abdominal Pain: No Location: epigastric Radiation: none Severity: mild Quality: other (Burning) Consistency: constant Improves with: none Worsens with: vomiting Context: recent surgery/procedure Associated Symptoms: denies other symptoms - Related Data Home Medications Medication Instructions Recorded Confirmed Gabapentin [Neurontin] 300 mg PO BID 06/29/17 12/20/20 INSULIN LISPRO (humaLOG) [humaLOG] 3 - 5 unit SQ AC-TID PRN 10/26/20 12/20/20 Insulin Glargine [Lantus] 20 unit SQ HS 10/26/20 12/20/20 Levothyroxine Sodium [Synthroid] 150 mcg PO DAILY 10/26/20 12/20/20 prednisoLONE ACETATE 1% OPHTH 1 drop LEFT EYE QID 10/26/20 12/20/20 [Pred Forte 1%] Atropine Ophth Soln 1% 5Ml [Isopto 1 drops LEFT EYE BID 12/20/20 12/20/20 Atropine 1% 5Ml] Previous Rx's Medication Instructions Recorded Acetaminophen Oral Susp [Tylenol 1,000 mg PO Q4-6H PRN #400 ml 12/26/20 Oral Susp] Omeprazole [PriLOSEC] 40 mg PO DAILY #30 capsule. 12/26/20 Ondansetron Odt [Zofran Odt] 4 mg PO Q8HR PRN #9 tab 12/26/20 Simethicone 40 mg/0.6 ml Drops 40 mg PO PCHS PRN #30 ml 12/26/20 [Mylicon Drops] bisacodyL [Dulcolax] 5 mg PO DAILY PRN #10 tablet. 12/26/20 Allergies Allergy/AdvReac Type Severity Reaction Status Date / Time adhesive tape Allergy Rash/Hives Verified 12/27/20 02:42 Penicillins Allergy Rash/Hives Verified 12/27/20 02:42 tetanus and diphtheria Allergy Rash/Hives Verified 12/27/20 02:42 toxoids "surgical glue" Allergy irritation Uncoded 12/27/20 02:42 around incision Review of Systems ROS Statement: Those systems with pertinent positive or pertinent negative responses have been documented in the HPI. ROS Other: All systems not noted in ROS Statement are negative. Constitutional: Denies: fever, chills, weakness Respiratory: Denies: cough, dyspnea, hemoptysis Cardiovascular: Denies: chest pain, palpitations, edema, syncope Gastrointestinal: Reports: as per HPI, abdominal pain, nausea, vomiting, yeimi temesis. Denies: diarrhea, constipation, melena, hematochezia Genitourinary: Denies: dysuria, hematuria Musculoskeletal: Denies: back pain Skin: Denies: rash Neurological: Denies: headache, weakness, numbness Past Medical History Past Medical History: Diabetes Mellitus, Thyroid Disorder Additional Past Medical History / Comment(s): chronic diarrhea, neuropathy bilateral feet, edema melissa feet History of Any Multi-Drug Resistant Organisms: None Reported Past Surgical History: Appendectomy, Bariatric Surgery, Section, Cholecystectomy, Hysterectomy Additional Past Surgical History / Comment(s): LAP BAND INSERTION 2005 (REMOVed 2011 d/t prolapse) Cervical Cage surgery C3-5 at [facility] 2014, left eye scar tissue removed Sep 2020. gastric bypass Past Anesthesia/Blood Transfusion Reactions: Previous Problems w/ Anesthesia Additional Past Anesthesia/Blood Transfusion Reaction / Comment(s): "OVERDOSED ON MORPHINE CEMENTER MACHINE AFTER HYSTERECTOMY SURGERY, LED TO CARDIAC ARREST." Past Psychological History: No Psychological Hx Reported Smoking Status: Former smoker Past Alcohol Use History: None Reported Past Drug Use History: None Reported - Past Family History Mother Family Medical History: No Reported History General Exam Limitations: no limitations General appearance: alert, in no apparent distress Head exam: Present: atraumatic, normocephalic Eye exam: Present: normal appearance. Absent: scleral icterus, conjunctival injection ENT exam: Present: normal oropharynx Neck exam: Present: normal inspection Respiratory exam: Present: normal lung sounds bilaterally. Absent: respiratory distress, wheezes, rales, rhonchi, stridor Cardiovascular Exam: Present: regular rate, normal rhythm, normal heart sounds. Absent: systolic murmur, diastolic murmur, rubs, gallop GI/Abdominal exam: Present: soft, other (The patient's surgical incisions are still dressed. The dressings are clean and dry. There is no palpable warmth. No visible erythema. No abdominal tenderness). Absent: distended, tenderness, guarding, rebound, rigid, mass Extremities exam: Present: normal inspection, normal capillary refill. Absent: pedal edema, calf tenderness Back exam: Present: normal inspection. Absent: CVA tenderness (R), CVA tenderness (L) Neurological exam: Present: alert Skin exam: Present: warm, dry, intact, normal color. Absent: rash Course Vital Signs 12/27/20 02:39 Temperature 98 F Pulse Rate 86 Respiratory 18 Rate Blood Pressure 117/57 O2 Sat by Pulse 95 Oximetry Medical Decision Making - Lab Data Result diagrams: 12/27/20 03:18 12/27/20 03:18 Lab Results 12/27/20 12/27/20 Range/Units 03:18 03:18 WBC 18.8 H (3.8-10.6) k/uL RBC 3.83 (3.80-5.40) m/uL Hgb 11.6 (11.4-16.0) gm/dL Hct 33.9 L (34.0-46.0) % MCV 88.4 (80.0-100.0) fL MCH 30.4 (25.0-35.0) pg MCHC 34.3 (31.0-37.0) g/dL RDW 12.7 (11.5-15.5) % Plt Count 316 (150-450) k/uL MPV 7.7 Neutrophils % 86 % Lymphocytes % 8 % Monocytes % 4 % Eosinophils % 2 % Basophils % 1 % Neutrophils # 16.1 H (1.3-7.7) k/uL Lymphocytes # 1.4 (1.0-4.8) k/uL Monocytes # 0.8 (0-1.0) k/uL Eosinophils # 0.3 (0-0.7) k/uL Basophils # 0.1 (0-0.2) k/uL Sodium 135 L (137-145) mmol/L Potassium 4.7 (3.5-5.1) mmol/L Chloride 105 (98-107) mmol/L Carbon Dioxide 20 L (22-30) mmol/L Anion Gap 10 mmol/L BUN 15 (7-17) mg/dL Creatinine 0.79 (0.52-1.04) mg/dL Est GFR (CKD-EPI)AfAm >90 (>60 ml/min/1.73 sqM) Est GFR (CKD-EPI)NonAf 87 (>60 ml/min/1.73 sqM) Glucose 264 H (74-99) mg/dL Calcium 8.6 (8.4-10.2) mg/dL Total Bilirubin 0.3 (0.2-1.3) mg/dL AST 55 H (14-36) U/L ALT 46 H (4-34) U/L Alkaline Phosphatase 250 H (38-126) U/L Total Protein 6.1 L (6.3-8.2) g/dL Albumin 3.1 L (3.5-5.0) g/dL Amylase <30 L (30-110) U/L Lipase <10 L (23-300) U/L - EKG Data -: EKG Interpreted by Md EKG shows normal: sinus rhythm, axis (Normal), intervals (Normal), QRS complexes (Low-voltage), ST-T waves (Normal) Rate: normal (Rate 91 bpm) Disposition Clinical Impression: Vomiting Disposition: HOME SELF-CARE Condition: Good Instructions (If sedation given, give patient instructions): Acute Nausea and Vomiting (ED) Is patient prescribed a controlled substance at d/c from ED?: No Referrals: Mayra Carrasco DO [Primary Care Provider] - 1-2 days Mireille Spence MD [STAFF PHYSICIAN] - 1-2 days
[2020-12-27 03:36] LABS: Basophils # (A) 0.1 k/uL (0-0.2); Basophils % (A) 1 %; Eosinophils # (A) 0.3 k/uL (0-0.7); Eosinophils % (A) 2 %; HCT 33.9 % (34.0-46.0); HGB 11.6 gm/dL (11.4-16.0); Lymphocytes # (A) 1.4 k/uL (1.0-4.8); Lymphocytes % (A) 8 %; MCH 30.4 pg (25.0-35.0); MCHC 34.3 g/dL (31.0-37.0); MCV 88.4 fL (80.0-100.0); Mean Platelet Volume 7.7; Monocytes # (A) 0.8 k/uL (0-1.0); Monocytes % (A) 4 %; Neutrophils # (A) 16.1 k/uL (1.3-7.7); Neutrophils % (A) 86 %; Platelet Count 316 k/uL (150-450); RBC 3.83 m/uL (3.80-5.40); RDW 12.7 % (11.5-15.5); WBC 18.8 k/uL (3.8-10.6)
[2020-12-27 03:47] LABS: ALT 46 U/L (4-34); AST 55 U/L (14-36); African American GFR (CKD) >90 (>60 ml/min/1.73 sqM); Albumin 3.1 g/dL (3.5-5.0); Alkaline Phosphatase 250 U/L (38-126); Amylase <30 U/L (30-110); Anion Gap 10 mmol/L; Blood Urea Nitrogen 15 mg/dL (7-17); Calcium 8.6 mg/dL (8.4-10.2); Carbon Dioxide 20 mmol/L (22-30); Chloride 105 mmol/L (98-107); Glucose 264 mg/dL (74-99); Lipase <10 U/L (23-300); Non-African American GFR(CKD) 87 (>60 ml/min/1.73 sqM); Potassium 4.7 mmol/L (3.5-5.1); Sodium 135 mmol/L (137-145); Total Bilirubin 0.3 mg/dL (0.2-1.3); Total Protein 6.1 g/dL (6.3-8.2)
[2020-12-27] MEDS ORDERED: INSULIN REGULAR 100 UNIT/ML VIAL SQ STA (04:53)
[2020-12-27 05:14] VITALS: BP 142/70; PULSE 98
[2020-12-27 05:20] LABS: Appearance,Urine Clear (Clear); Bilirubin,Urine Negative (Negative); Blood,Urine Trace (Negative); Color,Urine Yellow; Glucose,Urine (UA) 2+ (Negative); Hyaline Casts,Urine 4 /lpf (0-2); Leukocyte Esterase,Urine Negative (Negative); Mucus,Urine Rare /hpf; Nitrite,Urine Negative (Negative); PH, Urine 5.5 (5.0-8.0); Protein,Urine Trace (Negative); RBC,Urine 2 /hpf (0-5); Specific Gravity,Urine 1.019 (1.001-1.035); Squamous Epithelial Cell,Urine <1 /hpf (0-4); Urobilinogen,Urine <2.0 mg/dL (<2.0)
[2020-12-27 05:22] LABS: Ketones,Urine 2+ (Negative)
== END 2020-12-27 05:05 | disposition home or self-care (01) ==
LOC: SUPCPDRO 02:34 → EC 02:34
DX: R11.10 Vomiting, unspecified (principal); E07.9 Disorder of thyroid, unspecified; E11.40 Type 2 diabetes mellitus with diabetic neuropathy, unspecified; Z90.89 Acquired absence of other organs; Z90.49 Acquired absence of other specified parts of digestive tract; Z90.710 Acquired absence of both cervix and uterus; Z79.4 Long term (current) use of insulin
CPT/HCPCS: 36415; 80053; 81001; 82150; 83690; 85025; 93005; 96361; 96374; 99284

== ENCOUNTER → 2020-12-28 | Outpatient (CLI) | payer MEDICARE, OTHER ==
--- NOTE | 2020-12-28 13:40 | P.PN ---
Subjective Progress Note Date: 12/28/20 Patient reports having hematemesis at home after right from hospital. Patient reports moderate reflux disease. She has not started her on omeprazole. Recommend IV fluid hydration. Vitaliy described. Follow-up one week. More scopolamine patches prescribed.
[2020-12-28 13:45] VITALS: BP 130/61; PULSE 78; RESP 16; TEMP 98.5; BMI 49.1
== END ==
LOC: BARWHC3 13:04
PROVIDERS: ATTEND Surgery Plastic and Reconstructive Surgery
DX: E66.01 Morbid (severe) obesity due to excess calories (principal); E03.9 Hypothyroidism, unspecified; K21.9 Gastro-esophageal reflux disease without esophagitis; Z98.84 Bariatric surgery status; E10.9 Type 1 diabetes mellitus without complications; F17.200 Nicotine dependence, unspecified, uncomplicated; Z68.42 Body mass index [BMI] 45.0-49.9, adult; Z88.0 Allergy status to penicillin; Z91.040 Latex allergy status; Z88.7 Allergy status to serum and vaccine; Z88.8 Allergy status to other drugs, medicaments and biological substances
CPT/HCPCS: 99211

== ENCOUNTER → 2020-12-29 | Outpatient (CLI) | payer MEDICARE, OTHER ==
[2020-12-29 08:14] VITALS: BP 137/77; PULSE 84; RESP 18; TEMP 98
[2020-12-29] MEDS: SODIUM CHLORIDE 0.9% 1,000 ML IV SCH ×2 (08:24→09:18)
== END ==
LOC: PROCWHC3 08:05
PROVIDERS: ATTEND Surgery Plastic and Reconstructive Surgery
DX: E86.0 Dehydration (principal); F17.200 Nicotine dependence, unspecified, uncomplicated; Z91.048 Other nonmedicinal substance allergy status; Z88.0 Allergy status to penicillin; Z88.7 Allergy status to serum and vaccine
CPT/HCPCS: 96360; 96361

== ENCOUNTER → 2021-01-03 | Outpatient (CLI) | payer MEDICARE, OTHER ==
[2021-01-03 11:45] VITALS: BMI 44.3
[2021-01-03 13:45] VITALS: BP 108/65; PULSE 76; TEMP 98.1
== END ==
LOC: BARWHC3 10:52
PROVIDERS: ATTEND Surgery Plastic and Reconstructive Surgery
DX: E66.01 Morbid (severe) obesity due to excess calories (principal); Z71.3 Dietary counseling and surveillance; Z88.0 Allergy status to penicillin; Z88.7 Allergy status to serum and vaccine; Z88.8 Allergy status to other drugs, medicaments and biological substances; Z68.41 Body mass index [BMI] 40.0-44.9, adult
CPT/HCPCS: 97803; G0463; 99211

== ENCOUNTER → 2021-01-17 | Outpatient (CLI) | payer MEDICARE, OTHER ==
[2021-01-17 13:51] VITALS: BP 125/67; PULSE 79; RESP 16; TEMP 98.3; BMI 45.7
--- NOTE | 2021-01-17 14:43 | P.PN ---
Subjective Progress Note Date: 01/17/21 DATE OF SERVICE: 01/17/2021 CHIEF COMPLAINT: Status post gastric bypass HISTORY OF PRESENT ILLNESS: Cydney Gray is a 55-year-old female status post gastric bypass, 12/25/2020. She is 3 weeks out. She has decreased her insulin use. She is taking 1 instead of 3 units at home. Her blood sugar glucose is 100 mg/dL in the morning. Before noon, her blood sugar glucose is 200s mg/dL. No foods are getting stuck. She is taking medications for her stomach. Her bowels are working. She is eating cooked vegetables. At height of 5 feet 5.25 inches, her ideal body weight is 149 pounds. Her highest weight is 303 pounds, BMI 50.1. She comes in 276 pounds from 297 pounds, 3 weeks ago. She has lost 21 pounds in 3 weeks. Her body mass index is 45.7. Lifetime weight loss, 27 pounds. Percent lifetime excess weight loss of 17%. She is 127 pounds overweight. PHYSICAL EXAM: VITAL SIGNS: Height 5 foot 5.25 inches, weight 276 pounds. BMI 45.7 Vital Signs Temp 98.3 F 01/17/21 13:46 Pulse 79 01/17/21 13:46 Resp 16 01/17/21 13:46 BP 125/67 01/17/21 13:46 Pulse Ox GENERAL: Well-developed in no acute distress. HEENT: No scleral icterus. Extraocular movements grossly intact. Hears conversational speech. No nasal drainage. NECK: Supple without lymphadenopathy. CHEST: Nonlabored respirations with equal bilateral excursions. CARDIOVASCULAR: Regular rate and regular rhythm. Distal 2+ pulses. ABDOMEN: Incisions granulated. No cellulitis. MUSCULOSKELETAL: No clubbing, cyanosis. NEURO: No focal or lateralizing signs. Cranial nerves 2 through 12 grossly within normal limits. PSYCH: Appropriate affect. Alert and oriented to person, place and time. SKIN: Good skin turgor. Well perfused. ASSESSMENT: 1. Morbid obesity due to excess calories 2. Body mass index of 50.2, initial to 45.7 3. Osteoarthritis of the knees. 4. Osteoarthritis of the lower back. 5. Hypothyroidism. 6. Gastroesophageal reflux disease 7. Diabetes type 2 insulin-dependent, poorly controlled 8. Diabetic neuropathy 9. Gastric ulcers 10. Chronic diarrhea 11. Hiatal hernia 12. Vitamin A deficiency 13. Vitamin D deficiency 14. Tobacco abuse disorder in remission 15. Tobacco cessation education 16. Status post lysis of adhesions 17. History of adjustable gastric band status post removal 18. Status post gastric bypass PLAN: 1. Recommend bariatric labs. 2. Dietitian reviewed goals. 3. May resume activities January 25 for vigorous activities. 4. Goal protein intake of 75 grams daily advised. Objective - Vital Signs Vital signs: Vital Signs Temp 98.3 F 01/17/21 13:46 Pulse 79 01/17/21 13:46 Resp 16 01/17/21 13:46 BP 125/67 01/17/21 13:46 Pulse Ox Intake & Output 01/16/21 01/17/21 01/17/21 18:59 06:59 18:59 Weight 125.645 kg
== END ==
LOC: BARWHC3 12:56
PROVIDERS: ATTEND Surgery Plastic and Reconstructive Surgery
DX: E66.01 Morbid (severe) obesity due to excess calories (principal); E11.40 Type 2 diabetes mellitus with diabetic neuropathy, unspecified; E03.9 Hypothyroidism, unspecified; E55.9 Vitamin D deficiency, unspecified; K21.9 Gastro-esophageal reflux disease without esophagitis; K25.9 Gastric ulcer, unspecified as acute or chronic, without hemorrhage or perforation; K44.9 Diaphragmatic hernia without obstruction or gangrene; K52.9 Noninfective gastroenteritis and colitis, unspecified; M17.0 Bilateral primary osteoarthritis of knee; E50.9 Vitamin A deficiency, unspecified; M47.9 Spondylosis, unspecified; F17.201 Nicotine dependence, unspecified, in remission; E11.9 Type 2 diabetes mellitus without complications; Z71.6 Tobacco abuse counseling; Z98.84 Bariatric surgery status; Z68.42 Body mass index [BMI] 45.0-49.9, adult; Z98.890 Other specified postprocedural states; Z88.0 Allergy status to penicillin; Z88.7 Allergy status to serum and vaccine; Z91.048 Other nonmedicinal substance allergy status; Z79.4 Long term (current) use of insulin; Z79.899 Other long term (current) drug therapy
CPT/HCPCS: 99211

== ENCOUNTER → 2021-01-18 | Outpatient (CLI) | payer MEDICARE, OTHER ==
[2021-01-18 20:01] LABS: HCT 40.2 % (37.2-46.3); HGB 12.6 g/dL (12.0-15.0); MCH 29.1 pg (27.0-32.0); MCHC 31.3 g/dL (32.0-37.0); MCV 92.8 fL (80.0-97.0); Mean Platelet Volume 11.6 fL (9.5-12.2); Platelet Count 397 X 10*3/uL (140-440); RBC 4.33 X 10*6/uL (4.10-5.20); RDW 13.6 % (11.5-14.5); WBC 7.25 X 10*3/uL (4.50-10.00)
[2021-01-18 20:41] LABS: INR 1.05 (0.90-1.11); Partial Thromboplastin Time 28.4 sec (23.5-31.0); Prothrombin Time 11.4 sec (9.9-11.9)
[2021-01-18 21:42] LABS: Hemoglobin A1C 8.8 % (4.0-6.0)
[2021-01-18 22:41] LABS: Ferritin 44.7 ng/mL (10.0-291.0)
[2021-01-18 22:45] LABS: Folate, Serum 8.7 ng/mL
[2021-01-18 22:47] LABS: % Iron Saturation 14.34 (12.00-45.00); African American GFR (CKD) 74.5 (60.0-200.0); Albumin 3.7 g/dL (3.80-4.90); Albumin/Globulin Ratio 1.06 (1.60-3.17); Anion Gap 9.9 mmol/L (4.00-12.00); Calcium 8.8 mg/dL (8.7-10.3); Carbon Dioxide 28.1 mmol/L (21.6-31.8); Chol/HDL Ratio 4.05; Globulin 3.5 g/dL (1.6-3.3); LDL Cholesterol,Calculated 88.2 mg/dL (0.0-131.0); Magnesium 1.6 mg/dL (1.5-2.4); Non-African American GFR(CKD) 64.3 (60.0-200.0); Phosphorus 4.1 mg/dL (2.4-5.1); Total Bilirubin 0.3 mg/dL (0.3-1.2); Total Protein 7.2 g/dL (6.2-8.2); VLDL Calculation 24.8 mg/dL (5.00-40.00)
[2021-01-19 12:59] LABS: Zinc, Serum 63 ug/dL (60-130)
== END | disposition home or self-care (01) ==
LOC: LABWHC1 13:42
PROVIDERS: ATTEND Surgery Plastic and Reconstructive Surgery
DX: Z01.812 Encounter for preprocedural laboratory examination (principal); E89.1 Postprocedural hypoinsulinemia; D50.8 Other iron deficiency anemias; K90.89 Other intestinal malabsorption; E55.9 Vitamin D deficiency, unspecified; K74.1 Hepatic sclerosis; N19 Unspecified kidney failure; K50.90 Crohn's disease, unspecified, without complications
CPT/HCPCS: 36415; 80053; 80061; 82306; 82525; 82607; 82728; 82746; 83036; 83540; 83550; 83735; 83970; 84100; 84134; 84255; 84425; 84443; 84590; 84630; 85027; 85610; 85730

== ENCOUNTER 2021-06-02 05:18 | Inpatient (IN) | payer MEDICARE, OTHER ==
[2021-06-02] MEDS ORDERED: ONDANSETRON 4 MG/2 ML VIAL IVP STA (05:36)
[2021-06-02] MEDS ORDERED: SODIUM CHLORIDE 0.9% 500 ML 500 ML IV STA (05:36)
[2021-06-02] MEDS ORDERED: SODIUM CHLORIDE 0.9% 1,000 ML IV STA (05:36)
--- NOTE | 2021-06-02 05:38 | ED ---
Nausea/Vomiting/Diarrhea HPI - General Chief complaint: Nausea/Vomiting/Diarrhea Stated complaint: Vomiting Time Seen by Provider: 06/02/21 05:19 Source: patient, RN notes reviewed, old records reviewed Mode of arrival: wheelchair Limitations: no limitations - History of Present Illness Initial comments: This is a 56-year-old female to the emergency. Patient presents for evaluation of multiple complaints abdominal pain nausea vomiting unable to keep anything down for about 4-5 days. Severe dehydration sore throat secondary to dehydration and diagnosis coronavirus within the past 3 weeks. Otherwise no travel show sick contacts. Patient is long history of surgical procedures and abdominal surgeries and follow-up with Dr. Spence. Patient has COVID recently diagnosed 21 days ago. MD complaint: nausea, vomiting, abdominal pain -: days(s) Description of Vomiting: watery Associated Abdominal Pain: Yes Location: diffuse, epigastric Radiation: none Severity: moderate Severity scale (1-10): 4 Quality: stabbing Consistency: constant Improves with: none Worsens with: vomiting Context: history of abdominal surgery Associated Symptoms: loss of appetite, nausea/vomiting, weakness - Related Data Home Medications Medication Instructions Recorded Confirmed Gabapentin [Neurontin] 300 mg PO BID 06/29/17 03/21/21 INSULIN LISPRO (humaLOG) [humaLOG] 3 - 5 unit SQ AC-TID PRN 10/26/20 03/21/21 Insulin Glargine [Lantus Vial] 10 unit SQ HS 10/26/20 03/21/21 Levothyroxine Sodium [Synthroid] 150 mcg PO DAILY 10/26/20 03/21/21 prednisoLONE ACETATE 1% OPHTH 1 drop LEFT EYE QID 10/26/20 03/21/21 [Pred Forte 1%] Atropine Ophth Soln 1% 5Ml [Isopto 1 drops LEFT EYE BID 12/20/20 03/21/21 Atropine 1% 5Ml] Previous Rx's Medication Instructions Recorded Acetaminophen Oral Susp [Tylenol 1,000 mg PO Q4-6H PRN #400 ml 12/26/20 Oral Susp] Omeprazole [PriLOSEC] 40 mg PO DAILY #30 capsule. 12/26/20 Ondansetron Odt [Zofran Odt] 4 mg PO Q8HR PRN #9 tab 12/26/20 Simethicone 40 mg/0.6 ml Drops 40 mg PO PCHS PRN #30 ml 12/26/20 [Mylicon Drops] bisacodyL [Dulcolax] 5 mg PO DAILY PRN #10 tablet. 12/26/20 Scopolamine 1.5MG/72Hr Patch 1 patch TRANSDERM Q72H #4 patch 12/28/20 [TransDerm Scop] Allergies Allergy/AdvReac Type Severity Reaction Status Date / Time adhesive tape Allergy Rash/Hives Verified 06/02/21 05:27 Penicillins Allergy Rash/Hives Verified 06/02/21 05:27 tetanus and diphtheria Allergy Rash/Hives Verified 06/02/21 05:27 toxoids "surgical glue" Allergy irritation Uncoded 03/21/21 15:57 around incision Review of Systems ROS Statement: Those systems with pertinent positive or pertinent negative responses have been documented in the HPI. ROS Other: All systems not noted in ROS Statement are negative. Past Medical History Past Medical History: Diabetes Mellitus, Thyroid Disorder Additional Past Medical History / Comment(s): chronic diarrhea, neuropathy bilateral feet, edema melissa feet History of Any Multi-Drug Resistant Organisms: None Reported Past Surgical History: Appendectomy, Bariatric Surgery, Section, Cholecystectomy, Hysterectomy Additional Past Surgical History / Comment(s): LAP BAND INSERTION 2005 (REMOVed 2011 d/t prolapse) Cervical Cage surgery C3-5 at [facility] 2014, left eye scar tissue removed Sep 2020. gastric bypass 12-25-20. left cataract removed 02/21. Past Anesthesia/Blood Transfusion Reactions: Previous Problems w/ Anesthesia Additional Past Anesthesia/Blood Transfusion Reaction / Comment(s): "OVERDOSED ON MORPHINE CAR DUMPER AFTER HYSTERECTOMY SURGERY, LED TO CARDIAC ARREST." Past Psychological History: No Psychological Hx Reported Smoking Status: Former smoker Past Alcohol Use History: None Reported Past Drug Use History: None Reported - Past Family History Mother Family Medical History: No Reported History General Exam General appearance: alert, in no apparent distress Head exam: Present: atraumatic, normocephalic, normal inspection Eye exam: Present: normal appearance, PERRL, EOMI. Absent: scleral icterus, conjunctival injection, periorbital swelling ENT exam: Present: normal exam, mucous membranes moist Neck exam: Present: normal inspection. Absent: tenderness, meningismus, lymphadenopathy Respiratory exam: Present: normal lung sounds bilaterally. Absent: respiratory distress, wheezes, rales, rhonchi, stridor Cardiovascular Exam: Present: regular rate, normal rhythm, normal heart sounds. Absent: systolic murmur, diastolic murmur, rubs, gallop, clicks GI/Abdominal exam: Present: soft, normal bowel sounds. Absent: distended, tenderness, guarding, rebound, rigid Extremities exam: Present: normal inspection, full ROM, normal capillary refill. Absent: tenderness, pedal edema, joint swelling, calf tenderness Back exam: Present: normal inspection Neurological exam: Present: alert, oriented X3, CN II-XII intact Psychiatric exam: Present: normal affect, normal mood Skin exam: Present: warm, dry, intact, normal color. Absent: rash Course Vital Signs 06/02/21 06/02/21 06/02/21 05:22 06:44 06:45 Temperature 98.2 F Pulse Rate 91 93 Respiratory 18 12 18 Rate Blood Pressure 136/65 173/74 O2 Sat by Pulse 95 100 Oximetry 06/02/21 07:20 Temperature Pulse Rate 79 Respiratory 20 Rate Blood Pressure 162/78 O2 Sat by Pulse 98 Oximetry Medical Decision Making - Lab Data Result diagrams: 06/02/21 06:37 06/02/21 06:37 Lab Results 06/02/21 06/02/21 06/02/21 Range/Units 06:37 06:37 06:37 WBC 6.7 (3.8-10.6) k/uL RBC 4.53 (3.80-5.40) m/uL Hgb 13.4 (11.4-16.0) gm/dL Hct 39.0 (34.0-46.0) % MCV 86.1 (80.0-100.0) fL MCH 29.6 (25.0-35.0) pg MCHC 34.4 (31.0-37.0) g/dL RDW 12.9 (11.5-15.5) % Plt Count 196 (150-450) k/uL MPV 9.0 Neutrophils % 70 % Lymphocytes % 21 % Monocytes % 4 % Eosinophils % 0 % Basophils % 1 % Neutrophils # 4.7 (1.3-7.7) k/uL Lymphocytes # 1.4 (1.0-4.8) k/uL Monocytes # 0.3 (0-1.0) k/uL Eosinophils # 0.0 (0-0.7) k/uL Basophils # 0.1 (0-0.2) k/uL PT 10.9 (9.0-12.0) sec INR 1.0 (<1.2) APTT 24.5 (22.0-30.0) sec Sodium 131 L (137-145) mmol/L Potassium 3.8 (3.5-5.1) mmol/L Chloride 97 L (98-107) mmol/L Carbon Dioxide 25 (22-30) mmol/L Anion Gap 9 mmol/L BUN 12 (7-17) mg/dL Creatinine 0.81 (0.52-1.04) mg/dL Est GFR (CKD-EPI)AfAm >90 (>60 ml/min/1.73 sqM) Est GFR (CKD-EPI)NonAf 83 (>60 ml/min/1.73 sqM) Glucose 237 H (74-99) mg/dL Plasma Lactic Acid Sandeep (0.7-2.0) mmol/L Calcium 8.4 (8.4-10.2) mg/dL Phosphorus 1.6 L (2.5-4.5) mg/dL Magnesium 1.3 L (1.6-2.3) mg/dL Total Bilirubin 0.3 (0.2-1.3) mg/dL AST 40 H (14-36) U/L ALT 24 (4-34) U/L Alkaline Phosphatase 206 H (38-126) U/L Troponin I (0.000-0.034) ng/mL C-Reactive Protein 7.3 H (<1.0) mg/dL Total Protein 6.8 (6.3-8.2) g/dL Albumin 3.4 L (3.5-5.0) g/dL Lipase 20 L (23-300) U/L 06/02/21 06/02/21 Range/Units 06:37 06:37 WBC (3.8-10.6) k/uL RBC (3.80-5.40) m/uL Hgb (11.4-16.0) gm/dL Hct (34.0-46.0) % MCV (80.0-100.0) fL MCH (25.0-35.0) pg MCHC (31.0-37.0) g/dL RDW (11.5-15.5) % Plt Count (150-450) k/uL MPV Neutrophils % % Lymphocytes % % Monocytes % % Eosinophils % % Basophils % % Neutrophils # (1.3-7.7) k/uL Lymphocytes # (1.0-4.8) k/uL Monocytes # (0-1.0) k/uL Eosinophils # (0-0.7) k/uL Basophils # (0-0.2) k/uL PT (9.0-12.0) sec INR (<1.2) APTT (22.0-30.0) sec Sodium (137-145) mmol/L Potassium (3.5-5.1) mmol/L Chloride (98-107) mmol/L Carbon Dioxide (22-30) mmol/L Anion Gap mmol/L BUN (7-17) mg/dL Creatinine (0.52-1.04) mg/dL Est GFR (CKD-EPI)AfAm (>60 ml/min/1.73 sqM) Est GFR (CKD-EPI)NonAf (>60 ml/min/1.73 sqM) Glucose (74-99) mg/dL Plasma Lactic Acid Sandeep 2.0 (0.7-2.0) mmol/L Calcium (8.4-10.2) mg/dL Phosphorus (2.5-4.5) mg/dL Magnesium (1.6-2.3) mg/dL Total Bilirubin (0.2-1.3) mg/dL AST (14-36) U/L ALT (4-34) U/L Alkaline Phosphatase (38-126) U/L Troponin I <0.012 (0.000-0.034) ng/mL C-Reactive Protein (<1.0) mg/dL Total Protein (6.3-8.2) g/dL Albumin (3.5-5.0) g/dL Lipase (23-300) U/L - EKG Data -: EKG Interpreted by Me (EKG is sinus rhythm 89 AL 1:30 QRS 72 QTC 440) Disposition Clinical Impression: Dehydration, Coronavirus infection, Gastroenteritis, Nausea & vomiting Disposition: ADMITTED IP TO THIS HOSP Condition: Fair Is patient prescribed a controlled substance at d/c from ED?: No Referrals: Mayra Carrasco DO [Primary Care Provider] - 1-2 days
[2021-06-02] MEDS ORDERED: PROCHLORPERAZINE INJ 10 MG/2 ML VIAL IVP STA (05:44)
[2021-06-02] MEDS ORDERED: diphenhydrAMINE 50 MG/ML 1 ML VIAL IVP STA (05:44)
[2021-06-02] MEDS ORDERED: HYDROmorphone 1 MG/ML 1 ML SYRINGE IVP STA (05:44)
[2021-06-02] MEDS ORDERED: NALOXONE 0.4 MG/ML 1 ML VIAL IVP STA (06:34)
[2021-06-02] MEDS: SODIUM CHLORIDE 0.9% 1,000 ML IV STA ×2 (06:43→07:19)
[2021-06-02 06:59] LABS: ALT 24 U/L (4-34); AST 40 U/L (14-36); African American GFR (CKD) >90 (>60 ml/min/1.73 sqM); Albumin 3.4 g/dL (3.5-5.0); Alkaline Phosphatase 206 U/L (38-126); Anion Gap 9 mmol/L; Blood Urea Nitrogen 12 mg/dL (7-17); C Reactive Protein 7.3 mg/dL (<1.0); Calcium 8.4 mg/dL (8.4-10.2); Carbon Dioxide 25 mmol/L (22-30); Chloride 97 mmol/L (98-107); Glucose 237 mg/dL (74-99); Lipase 20 U/L (23-300); Magnesium 1.3 mg/dL (1.6-2.3); Non-African American GFR(CKD) 83 (>60 ml/min/1.73 sqM); Phosphorus 1.6 mg/dL (2.5-4.5); Potassium 3.8 mmol/L (3.5-5.1); Sodium 131 mmol/L (137-145); Total Bilirubin 0.3 mg/dL (0.2-1.3); Total Protein 6.8 g/dL (6.3-8.2)
[2021-06-02 07:01] LABS: Partial Thromboplastin Time 24.5 sec (22.0-30.0); Prothrombin Time 10.9 sec (9.0-12.0)
[2021-06-02 07:02] LABS: Basophils # (A) 0.1 k/uL (0-0.2); Basophils % (A) 1 %; Eosinophils % (A) 0 %; HGB 13.4 gm/dL (11.4-16.0); Lymphocytes # (A) 1.4 k/uL (1.0-4.8); Lymphocytes % (A) 21 %; MCH 29.6 pg (25.0-35.0); MCHC 34.4 g/dL (31.0-37.0); MCV 86.1 fL (80.0-100.0); Monocytes # (A) 0.3 k/uL (0-1.0); Monocytes % (A) 4 %; Neutrophils # (A) 4.7 k/uL (1.3-7.7); Neutrophils % (A) 70 %; Platelet Count 196 k/uL (150-450); RBC 4.53 m/uL (3.80-5.40); RDW 12.9 % (11.5-15.5); WBC 6.7 k/uL (3.8-10.6)
--- NOTE | 2021-06-02 07:09 | XR ---
EXAMINATION TYPE: XR chest 1V portable DATE OF EXAM: 06/02/2021 COMPARISON: 06/29/2017 HISTORY: Pain TECHNIQUE: Single view FINDINGS: There is pulmonary interstitial and airspace edema. Costophrenic angles are clear. Heart size is fairly normal. Trachea is midline. IMPRESSION: There is pulmonary edema which is new compared to old exam and could be RDS or acute hear t failure.
--- NOTE | 2021-06-02 07:10 | XR ---
EXAMINATION TYPE: XR KUB portable DATE OF EXAM: 06/02/2021 COMPARISON: 06/29/2017 HISTORY: Abdominal pain TECHNIQUE: 2 views supine FINDINGS: There is no sign of intestinal obstruction or pneumoperitoneum. Fecal pattern is normal. Th ere is no sign of a mass. There are no pathologic calcifications over the kidneys. IMPRESSION: Nonacute abdomen. No change.
[2021-06-02] MEDS ORDERED: ONDANSETRON 4 MG/2 ML VIAL IVP PRN (07:33)
[2021-06-02] MEDS ORDERED: LORazepam 2 MG/ML INJ IV PRN (07:33)
[2021-06-02] MEDS ORDERED: NALOXONE 0.4 MG/ML 1 ML VIAL IV PRN (07:33)
[2021-06-02] MEDS ORDERED: HYDROmorphone 2 MG TAB PO PRN (07:33)
[2021-06-02] MEDS: MAGNESIUM SULFATE-D5W PMX 1 GM in DEXTROSE/WATER 1 100ML.BAG IVPB SCH ×3 (08:19→12:55)
[2021-06-02] MEDS ORDERED: ACETAMINOPHEN TAB 325 MG TAB PO PRN (08:50)
[2021-06-02 08:57] LABS: Glucose,Whole Blood 265 mg/dL (75-99)
[2021-06-02] MEDS: PANTOPRAZOLE 40 MG/10 ML VIAL IV SCH (09:19)
--- NOTE | 2021-06-02 09:55 | P.HPIM ---
History of Present Illness H&P Date: 06/02/21 This is a 56-year-old female past medical history noted below significant for type 2 diabetes that presented to the emergency room with worsening nausea, vomiting, and shortness of breath. Patient said that her symptoms started a few days ago and is been getting progressively worse. She was unable to keep anything down. Patient was evaluated in the ER and was found to be COVID-19 positive. She is not vaccinated. She did not have a reason why she is not vaccinated. She was also found to have some electrolyte arrangement. Initially, patient was on nonrebreather in the ER and at the time of my evaluation she was on 4 L of oxygen. Review of Systems Review of system: 14 points review of systems were obtained and were negative except to what were mentioned in the HPI. Past Medical History Past Medical History: Diabetes Mellitus, Thyroid Disorder Additional Past Medical History / Comment(s): chronic diarrhea, neuropathy bilateral feet, edema melissa feet History of Any Multi-Drug Resistant Organisms: None Reported Past Surgical History: Appendectomy, Bariatric Surgery, Section, Cholecystectomy, Hysterectomy Additional Past Surgical History / Comment(s): LAP BAND INSERTION 2005 (REMOVed 2011 d/t prolapse) Cervical Cage surgery C3-5 at [facility] 2014, left eye scar tissue removed Sep 2020. gastric bypass 12-25-20. left cataract removed 02/21. Past Anesthesia/Blood Transfusion Reactions: Previous Problems w/ Anesthesia Additional Past Anesthesia/Blood Transfusion Reaction / Comment(s): "OVERDOSED ON MORPHINE SUSTAINABILITY PROJECT COORDINATOR AFTER HYSTERECTOMY SURGERY, LED TO CARDIAC ARREST." Past Psychological History: No Psychological Hx Reported Smoking Status: Former smoker Past Alcohol Use History: None Reported Past Drug Use History: None Reported - Past Family History Mother Family Medical History: No Reported History Medications and Allergies Home Medications Medication Instructions Recorded Confirmed Type Insulin Glargine,Hum.rec.anlog 20 unit SQ HS 06/02/21 06/02/21 History [Lantus Solostar Pen] Insulin Lispro [humaLOG Kwikpen] See Protocol SQ AC-TID 06/02/21 06/02/21 History Levothyroxine Sodium 100 mcg PO DAILY 06/02/21 06/02/21 History Multivitamins, Thera [Multivitamin 1 tab PO DAILY 06/02/21 06/02/21 History (formulary)] Allergies Allergy/AdvReac Type Severity Reaction Status Date / Time adhesive tape Allergy Rash/Hives Verified 06/02/21 08:01 Penicillins Allergy Rash/Hives Verified 06/02/21 08:01 tetanus and diphtheria Allergy Rash/Hives Verified 06/02/21 08:01 toxoids "surgical glue" Allergy irritation Uncoded 06/02/21 08:01 around incision Physical Exam Vitals: Vital Signs Temp Pulse Pulse Resp BP BP Pulse Ox 06/02/21 08:50 102.9 F H 74 18 120/56 91 L 06/02/21 08:24 82 22 140/60 93 L 06/02/21 08:02 99 06/02/21 07:20 79 20 162/78 98 06/02/21 06:45 93 18 173/74 100 06/02/21 06:44 12 06/02/21 05:22 98.2 F 91 18 136/65 95 Intake and Output 06/01/21 06/02/21 06/02/21 22:59 06:59 14:59 Other: Weight 113.398 kg General: The patient is awake and alert, in no distress Eye: there is normal conjunctiva bilaterally. Neck: The neck is supple, there is no JVD. Cardiovascular: Normal S1-S2, no S3-S4, no murmurs. Respiratory: Lungs clear to auscultation bilaterally Gastrointestinal: Abdomen is soft, nontender Musculoskeletal: There is no pedal edema. Neurological:. Speech is normal. Skin: Skin is warm and dry Results CBC & Chem 7: 06/02/21 06:37 06/02/21 06:37 Labs: Abnormal Lab Results - Last 24 Hours (Table) 06/02/21 06/02/21 06/02/21 Range/Units 06:37 06:56 08:53 Sodium 131 L (137-145) mmol/L Chloride 97 L (98-107) mmol/L Glucose 237 H (74-99) mg/dL POC Glucose (mg/dL) 265 H (75-99) mg/dL Phosphorus 1.6 L (2.5-4.5) mg/dL Magnesium 1.3 L (1.6-2.3) mg/dL AST 40 H (14-36) U/L Alkaline Phosphatase 206 H (38-126) U/L C-Reactive Protein 7.3 H (<1.0) mg/dL Albumin 3.4 L (3.5-5.0) g/dL Lipase 20 L (23-300) U/L Coronavirus (PCR) Detected A (Not Detectd) Assessment and Plan Assessment: 1. COVID-19 pneumonia 2. Acute hypoxic respiratory failure 3. Nausea and vomiting secondary to above 4. Sepsis without septic shock 5. Hypomagnesemia 6. Hypovolemic hyponatremia with dehydration 7. Type 2 diabetes, continue home dose of Lantus plus sliding scale 8. Hypothyroidism Today, I reviewed her medication list and lab work results. Chest x-ray showed evidence of RDS. Started patient on Decadron 6 mg daily, vitamin C, vitamin D, and zinc supplement DVT prophylaxis with subcu Lovenox Symptomatic management for nausea with IV Zofran as needed Magnesium replacement ordered Continue supportive care otherwise Repeat Work in the morning
[2021-06-02 11:07] LABS: Glucose,Whole Blood 319 mg/dL (75-99)
[2021-06-02] MEDS: LEVOTHYROXINE 100 MCG TAB PO SCH (11:44)
[2021-06-02] MEDS: dexAMETHasone 2 MG TAB PO SCH (11:44)
[2021-06-02] MEDS: INSULIN ASPART (NovoLOG) 100 UNIT/ML VIAL SQ SCH ×3 (11:44→21:53)
[2021-06-02] MEDS: CHOLECALCIFEROL 25 MCG (1000 IU) TABLET PO SCH (11:44)
[2021-06-02] MEDS: ASCORBIC ACID 500 MG TAB PO SCH (11:44)
[2021-06-02] MEDS: ZINC SULFATE 220 MG CAP PO SCH (11:44)
[2021-06-02] MEDS: SODIUM CHLORIDE 0.9% 1,000 ML IV SCH ×2 (11:47→21:53)
--- NOTE | 2021-06-02 15:27 | P.CNPUL ---
History of Present Illness Consult date: 06/02/21 Requesting physician: Evan Mcwilliams Reason for consult: dyspnea, abnormal CXR/CT Chief complaint: Shortness of breath, headache, fever History of present illness: This is a pleasant 56-year-old female patient who has a history of diabetes mellitus, hypothyroidism, morbid obesity status post Jimena-en-Y procedure in December 2020. She presented to the emergency room early this morning after a 2 week history of headache, fever, sinus congestion, and some nausea and vomiting. Her symptoms continued to progress without much improvement. She did test positive for COVID-19. Chest x-ray does show bilateral patchy airspace disease. She was hypoxemic and currently on 6 L high flow nasal cannula. White count 6.7. Hemoglobin 13.4. D-dimer 0.88. Sodium 131. Potassium 3.8. Creatinine 0.81. Glucose 237. LDH 964. C-reactive protein 7.3. She's been initiated on Decadron, Lovenox, vitamin supplements. Outside the window for Remdesivir. She is seen today in consultation on the regular medical floor. Currently sitting up in bed. Awake and alert in no acute distress. Breathing easier today compared to yesterday. She did have a T-max of 102.9 earlier this morning. Currently afebrile. Review of Systems REVIEW OF SYSTEMS: CONSTITUTIONAL: Denies any recent significant weight loss or weight gain. EYES: Denies change in vision. EARS, NOSE, MOUTH, THROAT: Positive for headaches and sore throat. CARDIOVASCULAR: Denies chest pain, palpitations or syncopal episodes. RESPIRATORY: Positive for shortness of breath, cough, congestion no hemoptysis. GASTROINTESTINAL: Positive for nausea vomiting, poor appetite GENITOURINARY: Denies hematuria, denies infections. MUSKULOSKELETAL: Denies pain, denies swelling. INTEGUMENTARY: Denies rash, denies eczema. NEUROLOGICAL: Denies recent memory loss, no recent seizure activity. PSYCHIATRIC: Denies anxiety, denies depression. HEMATOLOGIC/LYMPHATIC: Denies anemia, denies enlarged lymph nodes. Past Medical History Past Medical History: Diabetes Mellitus, Thyroid Disorder Additional Past Medical History / Comment(s): chronic diarrhea, neuropathy bilateral feet, edema melissa feet History of Any Multi-Drug Resistant Organisms: None Reported Past Surgical History: Appendectomy, Bariatric Surgery, Section, Cholecystectomy, Hysterectomy Additional Past Surgical History / Comment(s): LAP BAND INSERTION 2005 (REMOVed 2011 d/t prolapse) Cervical Cage surgery C3-5 at [facility] 2014, left eye scar tissue removed Sep 2020. gastric bypass 12-25-20. left cataract removed 02/21. 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, LED TO CARDIAC ARREST." Past Psychological History: No Psychological Hx Reported Smoking Status: Former smoker Past Alcohol Use History: None Reported Past Drug Use History: None Reported - Past Family History Mother Family Medical History: No Reported History Medications and Allergies Home Medications Medication Instructions Recorded Confirmed Type Insulin Glargine,Hum.rec.anlog 20 unit SQ HS 06/02/21 06/02/21 History [Lantus Solostar Pen] Insulin Lispro [humaLOG Kwikpen] See Protocol SQ AC-TID 06/02/21 06/02/21 Histo ry Levothyroxine Sodium 100 mcg PO DAILY 06/02/21 06/02/21 History Multivitamins, Thera [Multivitamin 1 tab PO DAILY 06/02/21 06/02/21 History (formulary)] Allergies Allergy/AdvReac Type Severity Reaction Status Date / Time adhesive tape Allergy Rash/Hives Verified 06/02/21 08:01 Penicillins Allergy Rash/Hives Verified 06/02/21 08:01 tetanus and diphtheria Allergy Rash/Hives Verified 06/02/21 08:01 toxoids "surgical glue" Allergy irritation Uncoded 06/02/21 08:01 around incision Physical Exam Vitals: Vital Signs Temp Pulse Pulse Resp BP BP Pulse Ox 06/02/21 14:00 98.3 F 60 18 114/69 93 L 06/02/21 08:50 102.9 F H 74 18 120/56 91 L 06/02/21 08:30 74 18 06/02/21 08:24 82 22 140/60 93 L 06/02/21 08:02 99 06/02/21 07:20 79 20 162/78 98 06/02/21 06:45 93 18 173/74 100 06/02/21 06:44 12 06/02/21 05:22 98.2 F 91 18 136/65 95 Intake and Output 06/02/21 06/02/21 06/02/21 06:59 14:59 22:59 Other: Weight 113.398 kg 113.398 kg GENERAL EXAM: Alert, pleasant, obese 56-year-old female patient, on 6 L high flow nasal cannula, fairly comfortable in no apparent distress. HEAD: Normocephalic. EYES: Normal reaction of pupils, equal size. NOSE: Clear with pink turbinates. THROAT: No erythema or exudates. NECK: No masses, no JVD. CHEST: No chest wall deformity. LUNGS: Equal air entry with crackles in the bilateral bases. CVS: S1 and S2 normal with no audible murmur, regular rhythm. ABDOMEN: No hepatosplenomegaly, normal bowel sounds, no guarding or rigidity. SPINE: No scoliosis or deformity SKIN: No rashes CENTRAL NERVOUS SYSTEM: No focal deficits, tone is normal in all 4 extremities. EXTREMITIES: There is no peripheral edema. No clubbing, no cyanosis. Peripheral pulses are intact. Results - Laboratory Findings CBC and BMP: 06/02/21 06:37 06/02/21 06:37 PT/INR, D-dimer PT 10.9 sec (9.0-12.0) 06/02/21 06:37 INR 1.0 (<1.2) 06/02/21 06:37 D-Dimer 0.88 mg/L FEU (<0.60) H 06/02/21 10:39 Abnormal lab findings: Abnormal Labs 06/02/21 06/02/21 06/02/21 06:37 06:56 08:53 D-Dimer Sodium 131 L Chloride 97 L Glucose 237 H POC Glucose (mg/dL) 265 H Phosphorus 1.6 L Magnesium 1.3 L AST 40 H Alkaline Phosphatase 206 H Lactate Dehydrogenase C-Reactive Protein 7.3 H Albumin 3.4 L Lipase 20 L Coronavirus (PCR) Detected A 06/02/21 06/02/21 06/02/21 10:39 10:39 11:05 D-Dimer 0.88 H Sodium Chloride Glucose POC Glucose (mg/dL) 319 H Phosphorus Magnesium AST Alkaline Phosphatase Lactate Dehydrogenase 964 H C-Reactive Protein Albumin Lipase Coronavirus (PCR) - Diagnostic Findings Chest x-ray: image reviewed Assessment and Plan Assessment: 1 Acute hypoxemic respiratory failure secondary to COVID-19 pneumonia. Outside the window for Remdesivir. Unvaccinated. 2 Nausea, vomiting, dehydration, febrile illness secondary to above 3 Elevated inflammatory markers secondary to above 4 Morbid obesity with previous Jimena-en-Y procedure in December 2020 5 Diabetes mellitus 6 Hypothyroidism Plan: The patient was seen and evaluated by Dr. Mccann Chest x-ray and labs reviewed Continue Lovenox, Decadron, vitamin supplements Outside the window for Remdesivir May consider Baricitinib oxygen requirements worsen Titrate the FiO2 as tolerated We will continue to follow and make further recommendations based on her clinical status I, the cosigning physician, performed a history & physical examination of the patient. Lungs sounds with bibasilar crackles. Maintaining good O2 saturations in the 90s on 6 L high flow nasal cannula. I discussed the assessment and plan of care with my nurse practitioner, Crystal Schmidt. I attest to the above consultation as dictated by her. Time with Patient: Greater than 30
[2021-06-02 16:56] LABS: Glucose,Whole Blood 264 mg/dL (75-99)
--- NOTE | 2021-06-02 16:56 | P.GSCN ---
History of Present Illness Consult date: 06/02/21 History of present illness: CHIEF COMPLAINT: Nausea and vomiting HISTORY OF PRESENT ILLNESS: Cydney Gray is a 56-year-old female with diabetes type 2, diabetic neuropathy, osteoarthritis of the lower back, osteoarthritis in the knees and gastric bypass who reports having COVID almost 3 weeks ago. She denies dysphagia. She reports minimally keeping her fluids during her quarantine with her family. After completion of her 10 days, she reported intractable nausea and vomiting. Her blood sugars were poorly controlled over 200s. She denies any abdominal pain. She presented to the emergency room today. After IV fluid hydration, she tolerated fluids and tolerated eating broccoli. She reports her symptoms have improved since admission. PAST MEDICAL HISTORY: 1. Morbid obesity due to excess calories 2. Body mass index of 49.4 3. Osteoarthritis of the knees. 4. Osteoarthritis of the lower back. 5. Hypothyroidism. 6. Gastroesophageal reflux disease 7. Diabetes type 2 insulin-dependent 8. Diabetic neuropathy 9. Gastric ulcers 10. Colon polyps PAST SURGICAL HISTORY: 1. Appendectomy 2. Hysterectomy 3. Cholecystectomy 4. Adjustable gastric band status post removal 5. Colonoscopy 6. Upper endoscopy 7. section HOME MEDICATIONS: See list ALLERGIES: See list SOCIAL HISTORY: Past tobacco use. FAMILY HISTORY: No family history of ulcerative colitis disease or Crohn's disease. No lupus in the family. No reports of stomach or esophageal cancer. REVIEW OF ORGAN SYSTEMS: CONSTITUTIONAL: At height of 5 feet 5.25 inches, her ideal body weight is 149 pounds. Her initial weight was 298 pounds. Her body mass index is up 49.4. She has lost 50 pounds in 5 months. HEENT: Denies any active troubles with vision or hearing. Denies troubles with swallowing. ENDOCRINE: Has diabetes type II, uncontrolled. Has hypothyroidism. CARDIOVASCULAR: Past reports of palpitations or heart attacks or chest pain. RESPIRATORY: Has daytime somnolence. No asthma. GASTROINTESTINAL: As above. MUSCULOSKELETAL: Has lower back pain and joint pain. Has osteoarthritis of the knees. NEURO: No headaches. No seizure disorders. PSYCH: No depression. No suicidal ideation. RHEUMATOLOGIC: No lupus. No rheumatoid arthritis. HEMATOLOGIC: Denies any abnormal bleeding or bruising. No personal history of DVTs. SKIN: No rash. No skin cancer. PHYSICAL EXAM: VITAL SIGNS: Reviewed. GENERAL: Well-developed in no acute distress. HEENT: No scleral icterus. Extraocular movements grossly intact. Hears conversational speech. No nasal drainage. NECK: Supple without lymphadenopathy. CHEST: Nonlabored respirations with equal bilateral excursions. CARDIOVASCULAR: Regular rate and regular rhythm. Distal 2+ pulses. ABDOMEN: Obese, soft, nontender, nondistended. MUSCULOSKELETAL: No clubbing, cyanosis. NEURO: No focal or lateralizing signs. Cranial nerves 2 through 12 grossly within normal limits. PSYCH: Appropriate affect. Alert and oriented to person, place and time. SKIN: Good skin turgor. Well perfused. LABS: Reviewed. COVID positive. WBC normal at 6.7. Hgb normal at 13.4. BSG 250 to 310s. Lipase is low. IMAGES: Abdominal Xray independently reviewed without free air. Non-specific bowel gas pattern. RADIOLOGY: Chest xray demonstrates pulmonary edema. ASSESSMENT: 1. COVID pneumonia 2. Intractable nausea and vomiting. 3. Osteoarthritis of the knees. 4. Osteoarthritis of the lower back. 5. Hypothyroidism. 6. Gastroesophageal reflux disease 7. Diabetes type 2 insulin-dependent, poorly controlled 8. Diabetic neuropathy 9. Gastric ulcers 10. Chronic diarrhea 11. Hiatal hernia 12. Vitamin A deficiency 13. Vitamin D deficiency 14. Morbid obesity due to excess calories 15. Body mass index of 49.4 to 39.2 PLAN: 1. Her intractable nausea and vomiting has improved since admission. 2. No need for surgical intervention. 3. Continue supportive care. Past Medical History Past Medical History: Diabetes Mellitus, Thyroid Disorder Additional Past Medical History / Comment(s): chronic diarrhea, neuropathy bilateral feet, edema melissa feet History of Any Multi-Drug Resistant Organisms: None Reported Past Surgical History: Appendectomy, Bariatric Surgery, Section, Cholecystectomy, Hysterectomy Additional Past Surgical History / Comment(s): LAP BAND INSERTION 2005 (REMOVed 2011 d/t prolapse) Cervical Cage surgery C3-5 at [facility] 2014, left eye scar tissue removed Sep 2020. gastric bypass 12-25-20. left cataract removed 02/21. 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, LED TO CARDIAC ARREST." Past Psychological History: No Psychological Hx Reported Smoking Status: Former smoker Past Alcohol Use History: None Reported Past Drug Use History: None Reported - Past Family History Mother Family Medical History: No Reported History Medications and Allergies Home Medications Medication Instructions Recorded Confirmed Type Insulin Glargine,Hum.rec.anlog 20 unit SQ HS 06/02/21 06/02/21 History [Lantus Solostar Pen] Insulin Lispro [humaLOG Kwikpen] See Protocol SQ AC-TID 06/02/21 06/02/21 History Levothyroxine Sodium 100 mcg PO DAILY 06/02/21 06/02/21 History Multivitamins, Thera [Multivitamin 1 tab PO DAILY 06/02/21 06/02/21 History (formulary)] Allergies Allergy/AdvReac Type Severity Reaction Status Date / Time adhesive tape Allergy Rash/Hives Verified 06/02/21 08:01 Penicillins Allergy Rash/Hives Verified 06/02/21 08:01 tetanus and diphtheria Allergy Rash/Hives Verified 06/02/21 08:01 toxoids "surgical glue" Allergy irritation Uncoded 06/02/21 08:01 around incision Surgical - Exam Vital Signs Temp Pulse Resp BP Pulse Ox 98.2 F 91 18 136/65 95 06/02/21 05:22 06/02/21 05:22 06/02/21 05:22 06/02/21 05:22 06/02/21 05:22 Results - Labs 06/02/21 06:37 06/02/21 06:37 Abnormal Lab Results - Last 24 Hours (Table) 06/02/21 06/02/21 06/02/21 Range/Units 06:37 06:56 08:53 D-Dimer (<0.60) mg/L FEU Sodium 131 L (137-145) mmol/L Chloride 97 L (98-107) mmol/L Glucose 237 H (74-99) mg/dL POC Glucose (mg/dL) 265 H (75-99) mg/dL Phosphorus 1.6 L (2.5-4.5) mg/dL Magnesium 1.3 L (1.6-2.3) mg/dL AST 40 H (14-36) U/L Alkaline Phosphatase 206 H (38-126) U/L Lactate Dehydrogenase (313-618) U/L C-Reactive Protein 7.3 H (<1.0) mg/dL Albumin 3.4 L (3.5-5.0) g/dL Lipase 20 L (23-300) U/L Coronavirus (PCR) Detected A (Not Detectd) 06/02/21 06/02/21 06/02/21 Range/Units 10:39 10:39 11:05 D-Dimer 0.88 H (<0.60) mg/L FEU Sodium (137-145) mmol/L Chloride (98-107) mmol/L Glucose (74-99) mg/dL POC Glucose (mg/dL) 319 H (75-99) mg/dL Phosphorus (2.5-4.5) mg/dL Magnesium (1.6-2.3) mg/dL AST (14-36) U/L Alkaline Phosphatase (38-126) U/L Lactate Dehydrogenase 964 H (313-618) U/L C-Reactive Protein (<1.0) mg/dL Albumin (3.5-5.0) g/dL Lipase (23-300) U/L Coronavirus (PCR) (Not Detectd) Diabetes panel 06/02/21 Range/Units 06:37 Sodium 131 L (137-145) mmol/L Potassium 3.8 (3.5-5.1) mmol/L Chloride 97 L (98-107) mmol/L Carbon Dioxide 25 (22-30) mmol/L BUN 12 (7-17) mg/dL Creatinine 0.81 (0.52-1.04) mg/dL Glucose 237 H (74-99) mg/dL Calcium 8.4 (8.4-10.2) mg/dL AST 40 H (14-36) U/L ALT 24 (4-34) U/L Alkaline Phosphatase 206 H (38-126) U/L Total Protein 6.8 (6.3-8.2) g/dL Albumin 3.4 L (3.5-5.0) g/dL Calcium panel 06/02/21 Range/Units 06:37 Calcium 8.4 (8.4-10.2) mg/dL Phosphorus 1.6 L (2.5-4.5) mg/dL Albumin 3.4 L (3.5-5.0) g/dL Pituitary panel 06/02/21 Range/Units 06:37 Sodium 131 L (137-145) mmol/L Potassium 3.8 (3.5-5.1) mmol/L Chloride 97 L (98-107) mmol/L Carbon Dioxide 25 (22-30) mmol/L BUN 12 (7-17) mg/dL Creatinine 0.81 (0.52-1.04) mg/dL Glucose 237 H (74-99) mg/dL Calcium 8.4 (8.4-10.2) mg/dL Adrenal panel 06/02/21 Range/Units 06:37 Sodium 131 L (137-145) mmol/L Potassium 3.8 (3.5-5.1) mmol/L Chloride 97 L (98-107) mmol/L Carbon Dioxide 25 (22-30) mmol/L BUN 12 (7-17) mg/dL Creatinine 0.81 (0.52-1.04) mg/dL Glucose 237 H (74-99) mg/dL Calcium 8.4 (8.4-10.2) mg/dL Total Bilirubin 0.3 (0.2-1.3) mg/dL AST 40 H (14-36) U/L ALT 24 (4-34) U/L Alkaline Phosphatase 206 H (38-126) U/L Total Protein 6.8 (6.3-8.2) g/dL Albumin 3.4 L (3.5-5.0) g/dL Assessment and Plan (1) Gastric bypass status for obesity Current Visit: Yes Status: Acute Code(s): Z98.84 - BARIATRIC SURGERY STATUS SNOMED Code(s): 171550947 (2) Coronavirus infection Current Visit: Yes Status: Acute Code(s): B34.2 - CORONAVIRUS INFECTION, UNSPECIFIED SNOMED Code(s): 167313846 (3) Dehydration Current Visit: Yes Status: Acute Code(s): E86.0 - DEHYDRATION SNOMED Code(s): 83404046 (4) Nausea & vomiting Current Visit: Yes Status: Acute Code(s): R11.2 - NAUSEA WITH VOMITING, UN SPECIFIED SNOMED Code(s): 95646786 (5) Insulin dependent type 2 diabetes mellitus Current Visit: No Status: Acute Code(s): E11.9 - TYPE 2 DIABETES MELLITUS WITHOUT COMPLICATIONS; Z79.4 - UNIFORM ROOM ATTENDANT (CURRENT) USE OF INSULIN SNOMED Code(s): 664561350
[2021-06-02 21:11] LABS: Glucose,Whole Blood 270 mg/dL (75-99)
[2021-06-02] MEDS: INSULIN DETEMIR (LEVEMIR) 100 UNIT/ML SYR SQ SCH (21:53)
[2021-06-03] MEDS: LEVOTHYROXINE 100 MCG TAB PO SCH (06:07)
[2021-06-03 07:16] LABS: Glucose,Whole Blood 315 mg/dL (75-99)
[2021-06-03] MEDS: dexAMETHasone 2 MG TAB PO SCH (07:42)
[2021-06-03] MEDS: INSULIN ASPART (NovoLOG) 100 UNIT/ML VIAL SQ SCH ×5 (07:42→20:57)
[2021-06-03] MEDS: CHOLECALCIFEROL 25 MCG (1000 IU) TABLET PO SCH (07:42)
[2021-06-03] MEDS: ENOXAPARIN 40 MG/0.4 ML SYRINGE SQ SCH (07:42)
[2021-06-03] MEDS: ZINC SULFATE 220 MG CAP PO SCH (07:43)
[2021-06-03] MEDS: ASCORBIC ACID 500 MG TAB PO SCH (07:43)
[2021-06-03] MEDS: PANTOPRAZOLE 40 MG/10 ML VIAL IV SCH (07:43)
[2021-06-03] MEDS: MULTIVITAMINS, THERA 1 EACH TAB PO SCH (07:43)
[2021-06-03 11:10] LABS: HCT 35.6 % (37.2-46.3); HGB 11.5 g/dL (12.0-15.0); MCH 28.2 pg (27.0-32.0); MCHC 32.3 g/dL (32.0-37.0); MCV 87.3 fL (80.0-97.0); Mean Platelet Volume 11.9 fL (9.5-12.2); Platelet Count 196 X 10*3/uL (140-440); RBC 4.08 X 10*6/uL (4.10-5.20); RDW 12.6 % (11.5-14.5); WBC 4.55 X 10*3/uL (4.50-10.00)
[2021-06-03 11:43] LABS: Glucose,Whole Blood 262 mg/dL (75-99)
[2021-06-03 11:52] LABS: Basophils # (A) 0.01 X 10*3/uL (0.00-0.10); Basophils % (A) 0.2 %; Eosinophils # (A) 0 X 10*3/uL (0.04-0.35); Eosinophils % (A) 0 %; Lymphocytes # (A) 1.17 X 10*3/uL (0.90-5.00); Lymphocytes % (A) 25.7 %; Monocytes # (A) 0.34 X 10*3/uL (0.20-1.00); Monocytes % (A) 7.5 %; Neutrophils % (A) 65.9 %
[2021-06-03 11:53] LABS: ALT 26 U/L (8-44); AST 38 U/L (13-35); African American GFR (CKD) 110.4 (60.0-200.0); Albumin 2.9 g/dL (3.8-4.9); Alkaline Phosphatase 191 U/L (41-126); BUN/Creat Ratio 15.04 Ratio (12.00-20.00); Blood Urea Nitrogen 10.8 mg/dL (9.0-27.0); Carbon Dioxide 21.6 mmol/L (21.6-31.8); Chloride 102 mmol/L (96-109); Globulin 2.9 g/dL (1.6-3.3); Glucose 332 mg/dL (70-110); Non-African American GFR(CKD) 95.3 (60.0-200.0); Phosphorus 3.1 mg/dL (2.4-5.1); Potassium 4.2 mmol/L (3.5-5.5); Sodium 136 mmol/L (135-145); Total Bilirubin <0.20 mg/dL (0.30-1.20); Total Protein 5.8 g/dL (6.2-8.2)
--- NOTE | 2021-06-03 12:58 | P.PN ---
Subjective Progress Note Date: 06/03/21 CHIEF COMPLAINT: Nausea and vomiting HISTORY OF PRESENT ILLNESS: Cydney Gray is a 56-year-old female with diabetes type 2, diabetic neuropathy, osteoarthritis of the lower back, osteoarthritis in the knees and gastric bypass who had COVID almost 3 weeks ago. She had dehydration including intractable nausea and vomiting that has resolved since admission to the hospital. She denies abdominal pain. "I feel fine." She has poorly controlled diabetes, bsg 250 to 400s. REVIEW OF ORGAN SYSTEMS: No fevers or chills. Denies shortness of breath but has low oxygen saturation. Resolved nausea and vomiting. PHYSICAL EXAM: VITAL SIGNS: Reviewed. GENERAL: Well-developed in no acute distress. HEENT: No scleral icterus. Extraocular movements grossly intact. Hears conversational speech. No nasal drainage. NECK: Supple without lymphadenopathy. CHEST: Nonlabored respirations with equal bilateral excursions. CARDIOVASCULAR: Regular rate and regular rhythm. Distal 2+ pulses. ABDOMEN: Obese, nontender, nondistended. MUSCULOSKELETAL: No clubbing, cyanosis. NEURO: No focal or lateralizing signs. Cranial nerves 2 through 12 grossly within normal limits. PSYCH: Appropriate affect. Alert and oriented to person, place and time. SKIN: Good skin turgor. Well perfused. LABS: Reviewed. COVID positive. WBC normal 4.55. Hgb low 11.5 ASSESSMENT: 1. COVID pneumonia 2. Intractable nausea and vomiting. 3. Osteoarthritis of the knees. 4. Osteoarthritis of the lower back. 5. Hypothyroidism. 6. Gastroesophageal reflux disease 7. Diabetes type 2 insulin-dependent, poorly controlled 8. Diabetic neuropathy 9. Gastric ulcers 10. Chronic diarrhea 11. Hiatal hernia 12. Vitamin A deficiency 13. Vitamin D deficiency 14. Morbid obesity due to excess calories 15. Body mass index of 49.4 to 39.2 16. Anemia 17. Hyperglycemia 18. Hypoxia. 19. COVID pneumonia PLAN: 1. Diet as tolerated 2. Management of hyperglycemia and asymptomatic hypoxia. 3. Continue supportive care. Objective - Vital Signs Vital signs: Vital Signs Temp 98.2 F 06/03/21 10:00 Pulse 63 06/03/21 10:00 Resp 18 06/03/21 10:00 BP 134/71 06/03/21 10:00 Pulse Ox 92 L 06/03/21 10:00 Intake & Output 06/02/21 06/03/2106/03/21 18:59 06:59 18:59 Intake Total 850 Balance 850 Weight 113.398 kg Intake: Intake, IV Titration 850 Amount Magnesium Sulfate-D5w Pmx 100 1 gm In Dextrose/Water 1 100ml.bag @ 100 mls/hr IVPB Q1H RIKKI Rx#: [id number] Sodium Chloride 0.9% 1, 750 000 ml @ 75 mls/hr IV . [id number] Rx#:[id number] Other: Voiding Method Toilet Toilet # Voids 3 - Labs CBC & Chem 7: 06/03/21 07:06 06/03/21 07:06 Labs: Abnormal Lab Results - Last 24 Hours (Table) 06/02/21 06/02/21 06/02/21 Range/Units 10:39 10:39 16:47 RBC (4.10-5.20) X 10*6/uL Hgb (12.0-15.0) g/dL Hct (37.2-46.3) % Eosinophils # (0.04-0.35) X 10*3/uL D-Dimer 0.88 H (<0.60) mg/L FEU Glucose (70-110) mg/dL POC Glucose (mg/dL) 264 H (75-99) mg/dL Calcium (8.7-10.3) mg/dL Total Bilirubin (0.30-1.20) mg/dL AST (13-35) U/L Alkaline Phosphatase (41-126) U/L Lactate Dehydrogenase 964 H (313-618) U/L Total Protein (6.2-8.2) g/dL Albumin (3.8-4.9) g/dL Albumin/Globulin Ratio (1.60-3.17) g/dL 06/02/21 06/03/21 06/03/21 Range/Units 21:03 07:00 07:06 RBC 4.08 L (4.10-5.20) X 10*6/uL Hgb 11.5 L (12.0-15.0) g/dL Hct 35.6 L (37.2-46.3) % Eosinophils # 0 L (0.04-0.35) X 10*3/uL D-Dimer (<0.60) mg/L FEU Glucose (70-110) mg/dL POC Glucose (mg/dL) 270 H 315 H (75-99) mg/dL Calcium (8.7-10.3) mg/dL Total Bilirubin (0.30-1.20) mg/dL AST (13-35) U/L Alkaline Phosphatase (41-126) U/L Lactate Dehydrogenase (313-618) U/L Total Protein (6.2-8.2) g/dL Albumin (3.8-4.9) g/dL Albumin/Globulin Ratio (1.60-3.17) g/dL 06/03/21 06/03/21 Range/Units 07:06 11:40 RBC (4.10-5.20) X 10*6/uL Hgb (12.0-15.0) g/dL Hct (37.2-46.3) % Eosinophils # (0.04-0.35) X 10*3/uL D-Dimer (<0.60) mg/L FEU Glucose 332 H (70-110) mg/dL POC Glucose (mg/dL) 262 H (75-99) mg/dL Calcium 8.0 L (8.7-10.3) mg/dL Total Bilirubin <0.20 L (0.30-1.20) mg/dL AST 38 H (13-35) U/L Alkaline Phosphatase 191 H (41-126) U/L Lactate Dehydrogenase (313-618) U/L Total Protein 5.8 L (6.2-8.2) g/dL Albumin 2.9 L (3.8-4.9) g/dL Albumin/Globulin Ratio 1.00 L (1.60-3.17) g/dL Assessment and Plan (1) Gastric bypass status for obesity Current Visit: Yes Status: Acute Code(s): Z98.84 - BARIATRIC SURGERY STATUS SNOMED Code(s): 444208545 (2) Coronavirus infection Current Visit: Yes Status: Acute Code(s): B34.2 - CORONAVIRUS INFECTION, UNSPECIFIED SNOMED Code(s): 844035011 (3) Dehydration Current Visit: Yes Status: Acute Code(s): E86.0 - DEHYDRATION SNOMED Code(s): 91971898 (4) Nausea & vomiting Current Visit: Yes Status: Acute Code(s): R11.2 - NAUSEA WITH VOMITING, UNSPECIFIED SNOMED Code(s): 96360132 (5) Insulin dependent type 2 diabetes mellitus Current Visit: No Status: Acute Code(s): E11.9 - TYPE 2 DIABETES MELLITUS WITHOUT COMPLICATIONS; Z79.4 - NURSING HOME (CURRENT) USE OF INSULIN SNOMED Code(s): 640283314
--- NOTE | 2021-06-03 15:20 | P.PN ---
Subjective Patient is feeling well today. She denies any shortness of breath. No acute events overnight reported by nursing staff. Objective - Vital Signs Vital signs: Vital Signs Temp 98.7 F 06/03/21 14:00 Pulse 57 L 06/03/21 14:00 Resp 18 06/03/21 14:00 BP 135/75 06/03/21 14:00 Pulse Ox 94 L 06/03/21 14:00 Intake & Output 06/02/21 06/03/21 06/03/21 18:59 06:59 18:59 Intake Total 850 Balance 850 Weight 113.398 kg Intake: Intake, IV Titration 850 Amount Magnesium Sulfate-D5w Pmx 100 1 gm In Dextrose/Water 1 100ml.bag @ 100 mls/hr IVPB Q1H [facility] Rx#: [id number] Sodium Chloride 0.9% 1, 750 000 ml @ 75 mls/hr IV . [id number] Rx#:[id number] Other: Voiding Method Toilet Toilet # Voids 3 - Exam General: The patient is awake and alert, in no distress Eye: there is normal conjunctiva bilaterally. Neck: The neck is supple, there is no JVD. Cardiovascular: Normal S1-S2, no S3-S4, no murmurs. Respiratory: Lungs clear to auscultation bilaterally Gastrointestinal: Abdomen is soft, nontender Musculoskeletal: There is no pedal edema. Neurological:. Speech is normal. Skin: Skin is warm and dry - Labs CBC & Chem 7: 06/03/21 07:06 06/03/21 07:06 Labs: Abnormal Lab Results - Last 24 Hours (Table) 06/02/21 06/02/21 06/03/21 Range/Units 16:47 21:03 07:00 RBC (4.10-5.20) X 10*6/uL Hgb (12.0-15.0) g/dL Hct (37.2-46.3) % Eosinophils # (0.04-0.35) X 10*3/uL Glucose (70-110) mg/dL POC Glucose (mg/dL) 264 H 270 H 315 H (75-99) mg/dL Calcium (8.7-10.3) mg/dL Total Bilirubin (0.30-1.20) mg/dL AST (13-35) U/L Alkaline Phosphatase (41-126) U/L Total Protein (6.2-8.2) g/dL Albumin (3.8-4.9) g/dL Albumin/Globulin Ratio (1.60-3.17) g/dL 06/03/21 06/03/21 06/03/21 Range/Units 07:06 07:06 11:40 RBC 4.08 L (4.10-5.20) X 10*6/uL Hgb 11.5 L (12.0-15.0) g/dL Hct 35.6 L (37.2-46.3) % Eosinophils # 0 L (0.04-0.35) X 10*3/uL Glucose 332 H (70-110) mg/dL POC Glucose (mg/dL) 262 H (75-99) mg/dL Calcium 8.0 L (8.7-10.3) mg/dL Total Bilirubin <0.20 L (0.30-1.20) mg/dL AST 38 H (13-35) U/L Alkaline Phosphatase 191 H (41-126) U/L Total Protein 5.8 L (6.2-8.2) g/dL Albumin 2.9 L (3.8-4.9) g/dL Albumin/Globulin Ratio 1.00 L (1.60-3.17) g/dL Microbiology - Last 24 Hours (Table) 06/02/21 10:39 Blood Culture - Preliminary Blood No Growth after 24 hours Assessment and Plan Assessment: 1. COVID-19 pneumonia 2. Acute hypoxic respiratory failure 3. Nausea and vomiting secondary to above 4. Sepsis without septic shock 5. Hypomagnesemia 6. Hypovolemic hyponatremia with dehydration 7. Type 2 diabetes, continue home dose of Lantus plus sliding scale. I would add NovoLog 4 units 3 times a day with each meal secondary to steroid-induced hyperglycemia 8. Hypothyroidism Today, I reviewed her medication list and lab work results. Chest x-ray showed evidence of RDS. Started patient on Decadron 6 mg daily, vitamin C, vitamin D, and zinc supplement DVT prophylaxis with subcu Lovenox Symptomatic management for nausea with IV Zofran as needed Magnesium replacement ordered Continue supportive care otherwise Wean off O2 as tolerated for O2 sat greater than 90% Anticipate discharge home tomorrow
--- NOTE | 2021-06-03 15:56 | P.PN ---
Subjective Progress Note Date: 06/03/21 Principal diagnosis: COVID-19 pneumonia This is a pleasant 56-year-old female patient who has a history of diabetes mellitus, hypothyroidism, morbid obesity status post Jimena-en-Y procedure in December 2020. She presented to the emergency room early this morning after a 2 week history of headache, fever, sinus congestion, and some nausea and vomiting. Her symptoms continued to progress without much improvement. She did test positive for COVID-19. Chest x-ray does show bilateral patchy airspace disease. She was hypoxemic and currently on 6 L high flow nasal cannula. White count 6.7. Hemoglobin 13.4. D-dimer 0.88. Sodium 131. Potassium 3.8. Creatinine 0.81. Glucose 237. LDH 964. C-reactive protein 7.3. She's been initiated on Decadron, Lovenox, vitamin supplements. Outside the window for Remdesivir. She is seen today in consultation on the regular medical floor. Currently sitting up in bed. Awake and alert in no acute distress. Breathing easier today co mpared to yesterday. She did have a T-max of 102.9 earlier this morning. Currently afebrile. The patient is seen today 06/03/2021 in follow-up on the regular medical floor. She is currently sitting up in bed. Awake and alert in no acute distress. 18 in good O2 saturations in the 90s on room air. She's been afebrile. Hemodynamically stable. Tolerating a diet. White count 4.5. Hemoglobin 11.5. Lymphocytes 1.17. Sodium 136. Potassium 4.2. Creatinine 0.7. Glucose 315. She remains on Lovenox, Decadron, vitamin supplements. Objective - Vital Signs Vital signs: Vital Signs Temp 98.7 F 06/03/21 14:00 Pulse 57 L 06/03/21 14:00 Resp 18 06/03/21 14:00 BP 135/75 06/03/21 14:00 Pulse Ox 94 L 06/03/21 14:00 Intake & Output 06/02/21 06/03/21 06/03/21 18:59 06:59 18:59 Intake Total 850 Balance 850 Weight 113.398 kg Intake: Intake, IV Titration 850 Amount Magnesium Sulfate-D5w Pmx 100 1 gm In Dextrose/Water 1 100ml.bag @ 100 mls/hr IVPB Q1H [facility] Rx#: [id number] Sodium Chloride 0.9% 1, 750 000 ml @ 75 mls/hr IV . [id number] [facility] Rx#:[id number] Other: Voiding Method Toilet Toilet # Voids 3 - Exam GENERAL EXAM: Alert, pleasant 56-year-old female, on room air, comfortable in no apparent distress. HEAD: Normocephalic. EYES: Normal reaction of pupils, equal size. NOSE: Clear with pink turbinates. THROAT: No erythema or exudates. NECK: No masses, no JVD. CHEST: No chest wall deformity. LUNGS: Equal air entry with crackles in the posterior bases. CVS: S1 and S2 normal with no audible murmur, regular rhythm. ABDOMEN: No hepatosplenomegaly, normal bowel sounds, no guarding or rigidity. SPINE: No scoliosis or deformity SKIN: No rashes CENTRAL NERVOUS SYSTEM: No focal deficits, tone is normal in all 4 extremities. EXTREMITIES: There is no peripheral edema. No clubbing, no cyanosis. Peripheral pulses are intact. - Labs CBC & Chem 7: 06/03/21 07:06 06/03/21 07:06 Labs: Abnormal Lab Results - Last 24 Hours (Table) 06/02/21 06/02/21 06/03/21 Range/Units 16:47 21:03 07:00 RBC (4.10-5.20) X 10*6/uL Hgb (12.0-15.0) g/dL Hct (37.2-46.3) % Eosinophils # (0.04-0.35) X 10*3/uL Glucose (70-110) mg/dL POC Glucose (mg/dL) 264 H 270 H 315 H (75-99) mg/dL Calcium (8.7-10.3) mg/dL Total Bilirubin (0.30-1.20) mg/dL AST (13-35) U/L Alkaline Phosphatase (41-126) U/L Total Protein (6.2-8.2) g/dL Albumin (3.8-4.9) g/dL Albumin/Globulin Ratio (1.60-3.17) g/dL 06/03/21 06/03/21 06/03/21 Range/Units 07:06 07:06 11:40 RBC 4.08 L (4.10-5.20) X 10*6/uL Hgb 11.5 L (12.0-15.0) g/dL Hct 35.6 L (37.2-46.3) % Eosinophils # 0 L (0.04-0.35) X 10*3/uL Glucose 332 H (70-110) mg/dL POC Glucose (mg/dL) 262 H (75-99) mg/dL Calcium 8.0 L (8.7-10.3) mg/dL Total Bilirubin <0.20 L (0.30-1.20) mg/dL AST 38 H (13-35) U/L Alkaline Phosphatase 191 H (41-126) U/L Total Protein 5.8 L (6.2-8.2) g/dL Albumin 2.9 L (3.8-4.9) g/dL Albumin/Globulin Ratio 1.00 L (1.60-3.17) g/dL Microbiology - Last 24 Hours (Table) 06/02/21 10:39 Blood Culture - Preliminary Blood No Growth after 24 hours Assessment and Plan Assessment: 1 Acute hypoxemic respiratory failure secondary to COVID-19 pneumonia. Outside the window for Remdesivir. Unvaccinated. 2 Nausea, vomiting, dehydration, febrile illness secondary to above 3 Elevated inflammatory markers secondary to above 4 Morbid obesity with previous Jimena-en-Y procedure in December 2020 5 Diabetes mellitus 6 Hypothyroidism Plan: The patient was seen and evaluated by Dr. Siobhan Lara from the pulmonary standpoint and on room air Continue Lovenox, Decadron, vitamin supplements Probable discharge in the a.m. We will continue to follow I, the cosigning physician, performed a history & physical examination of the patient. Lungs sounds with bibasilar crackles. Maintaining good O2 saturations in the 90s on room air. I discussed the assessment and plan of care with my nurse practitioner, Crystal Schmidt. I attest to the above note as dictated by her.
[2021-06-03 16:45] LABS: Glucose,Whole Blood 93 mg/dL (75-99)
[2021-06-03] MEDS: SODIUM CHLORIDE 0.9% 1,000 ML IV SCH (18:05)
[2021-06-03 20:41] LABS: Glucose,Whole Blood 236 mg/dL (75-99)
[2021-06-03] MEDS: INSULIN DETEMIR (LEVEMIR) 100 UNIT/ML SYR SQ SCH (20:57)
[2021-06-04 06:55] LABS: Glucose,Whole Blood 98 mg/dL (75-99)
[2021-06-04] MEDS ORDERED: PANTOPRAZOLE 40 MG TABLET PO SCH (07:30)
[2021-06-04] MEDS: INSULIN ASPART (NovoLOG) 100 UNIT/ML VIAL SQ SCH ×2 (07:30→08:30)
[2021-06-04] MEDS: LEVOTHYROXINE 100 MCG TAB PO SCH (08:29)
[2021-06-04] MEDS: MULTIVITAMINS, THERA 1 EACH TAB PO SCH (08:29)
[2021-06-04] MEDS: ZINC SULFATE 220 MG CAP PO SCH (08:29)
[2021-06-04] MEDS: dexAMETHasone 2 MG TAB PO SCH (08:29)
[2021-06-04] MEDS: CHOLECALCIFEROL 25 MCG (1000 IU) TABLET PO SCH (08:29)
[2021-06-04] MEDS: ASCORBIC ACID 500 MG TAB PO SCH (08:29)
[2021-06-04] MEDS: ENOXAPARIN 40 MG/0.4 ML SYRINGE SQ SCH (08:30)
--- NOTE | 2021-06-04 08:40 | P.DS ---
Providers Date of admission: 06/02/21 07:33 Expected date of discharge: 06/04/21 Attending physician: Evan Mcwilliams Consults: 06/02/21 07:33 Consult Physician Routine Consulting Provider: Bree Mccann Consult Reason/Comments: covif Do you want consulting provider notified?: Yes Consult Physician Routine Consulting Provider: Mireille Spence Consult Reason/Comments: known Do you want consulting provider notified?: Yes Primary care physician: Mayra Carrasco Hospital Course: This is a 56-year-old female with past medical history noted below presented to emergency room with worsening shortness of breath, nausea and vomiting. Patient was evaluated in the hospital for further management of her medical problems noted below. 1. COVID-19 pneumonia 2. Acute hypoxic respiratory failure 3. Nausea and vomiting secondary to above 4. Sepsis without septic shock 5. Hypomagnesemia, replaced 6. Hypovolemic hyponatremia with dehydration 7. Type 2 diabetes, continue home dose of Lantus plus sliding scale. 8. Hypothyroidism 9. History of Jimena-en-Y gastric bypass Started patient on Decadron 6 mg daily, vitamin C, vitamin D, and zinc supplement. Her overall condition improved throughout her hospital stay. She was seen and evaluated by pulmonary and general surgery. Patient was weaned off of oxygen and is currently on room air. She was up ambulating with no difficulty. She would be discharged home in a stable condition. Physical exam: General: The patient is awake and alert, in no distress Eye: there is normal conjunctiva bilaterally. Neck: The neck is supple, there is no JVD. Cardiovascular: Normal S1-S2, no S3-S4, no murmurs. Respiratory: Lungs clear to auscultation bilaterally Gastrointestinal: Abdomen is soft, nontender Musculoskeletal: There is no pedal edema. Neurological:. Speech is normal. Skin: Skin is warm and dry Patient Condition at Discharge: Fair Plan - Discharge Summary New Discharge Prescriptions: New Dexamethasone [Decadron] 6 mg PO DAILY #7 tablet Zinc Sulfate [Orazinc] 220 mg PO DAILY #14 cap Ascorbic Acid [Vitamin C] 1,000 mg PO DAILY #30 tab Cholecalciferol [Vitamin D3 (25 Mcg = 1000 Iu)] 100 mcg PO DAILY 10 Days #30 tablet Continue Levothyroxine Sodium 100 mcg PO DAILY Multivitamins, Thera [Multivitamin (formulary)] 1 tab PO DAILY Insulin Lispro [humaLOG Kwikpen] See Protocol SQ AC-TID Insulin Glargine,Hum.rec.anlog [Lantus Solostar Pen] 20 unit SQ HS Discharge Medication List Insulin Glargine,Hum.rec.anlog [Lantus Solostar Pen] 20 unit SQ HS 06/02/21 [History] Insulin Lispro [humaLOG Kwikpen] See Protocol SQ AC-TID 06/02/21 [History] Levothyroxine Sodium 100 mcg PO DAILY 06/02/21 [History] Multivitamins, Thera [Multivitamin (formulary)] 1 tab PO DAILY 06/02/21 [History] Ascorbic Acid [Vitamin C] 1,000 mg PO DAILY #30 tab 06/04/21 [Rx] Cholecalciferol [Vitamin D3 (25 Mcg = 1000 Iu)] 100 mcg PO DAILY 10 Days #30 tablet 06/04/21 [Rx] Dexamethasone [Decadron] 6 mg PO DAILY #7 tablet 06/04/21 [Rx] Zinc Sulfate [Orazinc] 220 mg PO DAILY #14 cap 06/04/21 [Rx] Follow up Appointment(s)/Referral(s): Mayra Carrasco DO [Primary Care Provider] - 1-2 days Discharge Disposition: HOME SELF-CARE
[2021-06-04 09:53] VITALS: BP 151/82; PULSE 58; RESP 16; TEMP 98
== END 2021-06-04 10:39 | disposition home or self-care (01) | DRG 871 ==
LOC: EC 05:18 → SUPCPDRO 05:18 → 4SSUR 07:33
PROVIDERS: ADMIT Internal Medicine; ATTEND Internal Medicine
DX: A41.89 Other specified sepsis (principal); J12.82 Pneumonia due to coronavirus disease 2019; J96.01 Acute respiratory failure with hypoxia; U07.1 COVID-19; E87.1 Hypo-osmolality and hyponatremia; Z68.42 Body mass index [BMI] 45.0-49.9, adult; D64.9 Anemia, unspecified; E03.9 Hypothyroidism, unspecified; E11.40 Type 2 diabetes mellitus with diabetic neuropathy, unspecified; E11.65 Type 2 diabetes mellitus with hyperglycemia; E50.9 Vitamin A deficiency, unspecified; E55.9 Vitamin D deficiency, unspecified; E66.01 Morbid (severe) obesity due to excess calories; E83.42 Hypomagnesemia; E86.0 Dehydration; M19.09 Primary osteoarthritis, other specified site; E86.1 Hypovolemia; K21.9 Gastro-esophageal reflux disease without esophagitis; K52.9 Noninfective gastroenteritis and colitis, unspecified; T38.0X5A Adverse effect of glucocorticoids and synthetic analogues, initial encounter; M17.0 Bilateral primary osteoarthritis of knee; K44.9 Diaphragmatic hernia without obstruction or gangrene; Z79.4 Long term (current) use of insulin; Z79.890 Hormone replacement therapy; Z86.74 Personal history of sudden cardiac arrest; Z87.11 Personal history of peptic ulcer disease; Z87.19 Personal history of other diseases of the digestive system; Z87.891 Personal history of nicotine dependence; Z90.710 Acquired absence of both cervix and uterus; Z98.84 Bariatric surgery status; Z88.0 Allergy status to penicillin; Z88.7 Allergy status to serum and vaccine; Z91.041 Radiographic dye allergy status; X58.XXXA Exposure to other specified factors, initial encounter; Z98.42 Cataract extraction status, left eye; Z86.010 Personal history of colon polyps
CPT/HCPCS: 71045; 74018; 80053; 83605; 83615; 83690; 83735; 83880; 84100; 84484; 85025; 85379; 85610; 85730; 86140; 87040; 87635; 93005; 96361; 96374; 96375; 99285